=== PATIENT | female | born 1935 | race Caucasian/White ===

== ENCOUNTER 2019-07-21 04:45 | Outpatient (RCR) | payer MEDICARE, MEDICAID, SELFPAY | END 2019-08-04 00:01 | LOC: LAB 04:45 | PROVIDERS: Family Provider Family Medicine; Visit Provider Nurse Practitioner Family | DX: I10 Essential (primary) hypertension (principal); E11.9 Type 2 diabetes mellitus without complications | CPT/HCPCS: 36415; 80053; 80061; 83036; 84443; 85025 ==

== ENCOUNTER 2022-05-09 17:52 | Emergency (ER) | payer MEDICARE, MEDICAID, SELFPAY ==
[2022-05-09 17:54] VITALS: BP 148/78; PULSE 78; RESP 18; TEMP 36.6; O2SAT 93; BMI 26.4
[2022-05-09 18:01] VITALS: BP 181/55; PULSE 62; O2SAT 95
--- NOTE | 2022-05-09 18:29 | ED_ITS ---
HPI - General Adult General: Chief complaint: Fall Stated complaint: fall L. arm pain Time Seen by Provider: 05/09/22 18:06 History of Present Illness: Patient is a 86-year-old female with a history of baseline dementia who presents to the emergency room with concerns of left upper extremity pain versus paralysis. Patient was last seen normal yesterday. However this morning, patient was noted by the staff to not be able to grasp with the left hand. Patient reported initially that she was in pain. However there was concern that may be this was possibly a stroke. EMS was called patient was brought to the emergency room. On arrival, patient is AAO x1 confused but occasionally following commands. Patient is moving all extremities at this time. History is limited. On arrival, in triage, patient told triage nurse that her left knee was hurting. Onset:earlier today (unknown) Duration:unknown Location:home Severity:moderate Associated symptoms: Deny chest pain, dyspnea, nausea, rash, palpitations or vomiting Review of Systems Const: Denies: fever(s) or chills Eyes: Denies: change in vision ENMT: Denies: mouth pain Card: Denies: chest pain or palpitations Resp: Denies: dyspnea or non-productive cough GI: Denies: abdominal pain, nausea, vomiting or diarrhea : Denies: dysuria Musc: Reports: extremity pain (+L knee pain) and other (+possible L arm pain vs transient weakness) Skin/Breast: Denies: rash or new lesions Neuro: Denies: weakness in extremities Psych: Reports: other (Normal mood) Thiago/Lymph: Denies: easy bruising [facility] ED PFSH: Medical History Dementia Social History Smoking and tobacco status: never smoked Alcohol intake: never Substance/Drug Use: never Physical Exam Const: COMMON NORMALS: alert HENMT: COMMON NORMALS: atraumatic HEAD & SCALP: atraumatic MOUTH: moist mucous membranes not abnormal Eye: COMMON NORMALS: EOMs intact bilaterally and conjunctivae normal CONJUNCTIVA: Yes conjunctivae normal Neck/C-Spine: COMMON NORMALS: full ROM and supple Resp: COMMON NORMALS: normal respiratory effort and clear to auscultation bilaterally AUSCULTATION: clear to auscultation bilaterally Cardio: COMMON NORMALS: regular rate RATE: regular rate GI: COMMON NORMALS: Soft to palpation and non-tender PALPATION: Yes Soft to palpation Extremity: COMMON NORMALS: full ROM Neuro: SENSORIUM/ORIENTATION: Yes alert MOTOR EXAM: No Abnormal motor stre ngth present and Other motor observations present (no focal motor deficits) OTHER: Mental status? AAOx1, following commands occasionally Cranial nerves? 2,3,4,6: PERRL, EOMI with no nystagmus. 5: Intact sensation to light touch, symmetric? 7: Smile symmetrical, no facial droop.? 8: Hearing grossly intact.? 9,10: Normal palate movement.? 11: Normal strength in trapezius bilaterally 12: Tongue protrudes midline.? ? Motor examination? Normal bulk & tone. Strength as follows (R/L): Delts (5/5), Biceps (5/5), Triceps (5/5), Wrist ext (5/5), hip flexors (5/5), plantarflexors (5/5), dorsiflexors (5/5). Sensation? Light Touch: Grossly intact and equal in upper and lower extremities bilaterally? Romberg: Negative.? Distal joint position sense intact Unable to assess cerebellar and gait given baseline mental status Psych: COMMON NORMALS: speech normal SPEECH: Yes normal speech MOOD & AFFECT: Yes euthymic mood Course Vital Signs: Vital signs: Vital Signs Temperature 98 F 05/09/22 17:54 Pulse Rate 62 05/09/22 18:01 Respiratory Rate 18 05/09/22 17:54 Blood Pressure 181/55 05/09/22 18:01 Pulse Oximetry 95 05/09/22 18:01 Oxygen Delivery Me thod 05/09/22 18:01 [facility] - General Adult Medical Decision Making Patient is a 86-year-old female with a history of baseline dementia who presents to the emergency room with concerns of left upper extremity pain versus paralysis. Patient was last seen normal yesterday. On physical exam, patient is equal strength on both sides. Cranial nerves II through XII grossly intact. Patient does not demonstrate any focal neurological pathologies at this time. X-rays today are negative. CT is negative for any acute stroke. I discussed case with Dr. Puentes who agrees that this is unlikely to be a stroke today as patient has intact neuro exam. Disposition: Discharge. retirement counseled regarding diagnostic impression, treatment plan. retirement given ED strict return precautions to return for continuation, worsening, or development of new symptoms. Instructed to f/u w/ PCP regarding symptoms today. retirement verbalized understanding. Lab Data Radiology Impressions Head CT 05/09/22 18:57 IMPRESSION: Negative for intracranial hemorrhage or mass effect. Humerus X-Ray 05/09/22 18:57 IMPRESSION: No acute fracture. Knee X-Ray 05/09/22 18:57 IMPRESSION: No acute fracture. Shoulder X-Ray 05/09/22 18:57 IMPRESSION: No acute findings. Imaging Data Other Imaging: Radiologist's impression: [facility] [address] [place] [address] XRay Report Signed Patient: Lissa Pete Unit #: [id number] : 1935 Age/Sex: 86 / F ADM Date: 05/09/22 Loc: ER Room/Bed: Attending Dr: Ordering Provider/Ordering MD: Froylan Baker MD Date of Service: 05/09/22 Procedure(s): XR shoulder LT min 2V* [id number] Accession Number(s): [id number] Report Number: [id number] PROCEDURE INFORMATION: Exam: XR Left Shoulder Exam date and time: 05/09/2022 7:06 PM Age: 86 years old Clinical indication: Pain; Shoulder; Left; Additional info: L shoulder pain TECHNIQUE: Imaging protocol: Radiologic exam of the Left shoulder. Views: 2 or more views. COMPARISON: CR XR chest 1V [id number] 07/05/2017 12:06 AM FINDINGS: Bones/joints: Glenohumeral and acromioclavicular alignment are normal. No acute fracture. Soft tissues: Visible soft tissues are unremarkable. XR/XR shoulder LT min 2V* [id number] IMPRESSION: No acute findings. ? Dictated By: Donald Alvarez MD Signed By: Donald Alvarez MD Signed Date/Time: 05/09/221937 DD/ [address] [address] XRay Report Signed Patient: Lissa Pete Unit #: [id number] : 1935 Age/Sex: 86 / F ADM Date: 05/09/22 Loc: ER Room/Bed: Attending Dr: Ordering Provider/Ordering MD: Froylan Baker MD Date of Service: 05/09/22 Procedure(s): XR knee LT 1-2V 64422 Accession Number(s): [id number] Report Number: [id number] PROCEDURE INFORMATION: Exam: XR Left Knee Exam date and time: 05/09/2022 7:03 PM Age: 86 years old Clinical indication: Pain; Knee; Left; Additional info: L knee pain TECHNIQUE: Imaging protocol: Radiologic exam of the Left knee. Views: 1 or 2 views. COMPARISON: No relevant prior studies available. FINDINGS: Bones/joints: Bones are diffusely osteopenic. Alignment is normal. There is chondrocalcinosis of the menisci. No acute fracture. No joint effusion. Soft tissues: Lateral prepatellar edema. XR/XR knee LT 1-2V 31532 IMPRESSION: No acute fracture. ? Dictated By: Donald Alvarez MD Signed By: Donald Alvarez MD Signed Date/Time: 05/09/221935 DD/ [address] [address] XRay Report Signed Patient: Lissa Pete Unit #: [id number] : 1935 Age/Sex: 86 / F ADM Date: 05/09/22 Loc: ER Room/Bed: Attending Dr: Ordering Provider/Ordering MD: Froylan Baker MD Date of Service: 05/09/22 Procedure(s): [place] [address] Accession Number(s): [id number] Report Number: [id number] PROCEDURE INFORMATION: Exam: XR Left Humerus Exam date and time: 05/09/2022 7:08 PM Age: 86 years old Clinical indication: Pain; Upper arm; Left; Additional info: L humerus pain TECHNIQUE: Imaging protocol: Radiologic exam of the Left humerus. Views: 2 or more views. COMPARISON: CR (CHEST, ) 05/09/2022 7:06 PM FINDINGS: Bones/joints: Alignment is normal. No acute fracture. Soft tissues: Visible soft tissues are unremarkable. XR/[place] [id number] IMPRESSION: No acute fracture. ? Dictated By: Donald Alvarez MD Signed By: Donald Alvarez MD Signed Date/Time: 05/09/221936 DD/ [address] [address] [address] Scan Report Signed Patient: Lissa Pete Unit #: [id number] : 1935 Age/Sex: 86 / F ADM Date: 05/09/22 Loc: ER Room/Bed: Attending Dr: Ordering Provider/Ordering MD: Froylan Baker MD Date of Service: 05/09/22 Procedure(s): CT head wo con* 10592 Accession Number(s): [id number] Report Number: [id number] PROCEDURE INFORMATION: Exam: CT Head Without Contrast Exam date and time: 05/09/2022 7:29 PM Age: 86 years old Clinical indication: Pain; Altered mental status/memory loss; Headache; Prior surgery; Additional info: Head pain TECHNIQUE: Imaging protocol: Computed tomography of the head without contrast. Radiation optimization: All CT scans at this facility use at least one of these dose optimization techniques: automated exposure control; mA and/or kV adjustment per patient size (includes targeted exams where dose is matched to clinical indication); or iterative reconstruction. COMPARISON: No relevant prior studies available. RADIATION DOSE METRICS: Total DLP (mGy-cm): 1033.58 FINDINGS: Brain: Mild diffuse white matter disease likely reflecting chronic microvascular ischemic changes. Cerebral ventricles: No ventriculomegaly. Paranasal sinuses: Visualized sinuses are unremarkable. No fluid levels. Mastoid air cells: Visualized mastoid air cells are well aerated. Bones/joints: Unremarkable. No acute fracture. Soft tissues: Unremarkable. CT/CT head wo con* [id number] IMPRESSION: Negative for intracranial hemorrhage or mass effect. ? Dictated By: Juwan Cota MD Signed By: Juwan Cota MD Signed Date/Time: 05/09/222009 DD/ 1929 Discharge Plan Discharge Patient Disposition: Home Clinical Impression: Adult general medical exam Condition: Stable Discharge Orders: Discharge ED (Routine); Ordered 05/09/22 Ordered By: Froylan Baker Referrals: Tony Leonardo Jr, MD [Primary Care Provider] - Discharge Diet: Advance as tolerated Discharge Activity: Increase activity as tolerated Activity Restrictions/Additional Instructions: Come back to the emergency room if any weakness in your arms or legs, if you have any facial droop, double vision, visual blindness, visual field deficits, balance problem, inability to walk, language difficulties or any new or concerning complaints. Coding Level of Care Code ED Him Manager for Chg Fwd Exam Comprehensive
--- NOTE | 2022-05-09 18:57 | XRR_ITS ---
PROCEDURE INFORMATION: Exam: XR Left Knee Exam date and time: 05/09/2022 7:03 PM Age: 86 years old Clinical indication: Pain; Knee; Left; Additional info: L knee pain TECHNIQUE: Imaging protocol: Radiologic exam of the Left knee. Views: 1 or 2 views. COMPARISON: No relevant prior studies available. FINDINGS: Bones/joints: Bones are diffusely osteopenic. Alignment is normal. There is chondrocalcinosis of the menisci. No acute fracture. No joint effusion. Soft tissues: Lateral prepatellar edema. XR/XR knee LT 1-2V 95827 IMPRESSION: No acute fracture.
--- NOTE | 2022-05-09 18:57 | XRR_ITS ---
PROCEDURE INFORMATION: Exam: XR Left Humerus Exam date and time: 05/09/2022 7:08 PM Age: 86 years old Clinical indication: Pain; Upper arm; Left; Additional info: L humerus pain TECHNIQUE: Imaging protocol: Radiologic exam of the Left humerus. Views: 2 or more views. COMPARISON: CR (CHEST, ) 05/09/2022 7:06 PM FINDINGS: Bones/joints: Alignment is normal. No acute fracture. Soft tissues: Visible soft tissues are unremarkable. XR/[place] [address] IMPRESSION: No acute fracture.
--- NOTE | 2022-05-09 18:57 | XRR_ITS ---
PROCEDURE INFORMATION: Exam: XR Left Shoulder Exam date and time: 05/09/2022 7:06 PM Age: 86 years old Clinical indication: Pain; Shoulder; Left; Additional info: L shoulder pain TECHNIQUE: Imaging protocol: Radiologic exam of the Left shoulder. Views: 2 or more views. COMPARISON: CR XR chest 1V [id number] 07/05/2017 12:06 AM FINDINGS: Bones/joints: Glenohumeral and acromioclavicular alignment are normal. No acute fracture. Soft tissues: Visible soft tissues are unremarkable. XR/XR shoulder LT min 2V* [id number] IMPRESSION: No acute findings.
--- NOTE | 2022-05-09 18:57 | CTR_ITS ---
PROCEDURE INFORMATION: Exam: CT Head Without Contrast Exam date and time: 05/09/2022 7:29 PM Age: 86 years old Clinical indication: Pain; Altered mental status/memory loss; Headache; Prior surgery; Additional info: Head pain TECHNIQUE: Imaging protocol: Computed tomography of the head without contrast. Radiation optimization: All CT scans at this facility use at least one of these dose optimization techniques: automated exposure control; mA and/or kV adjustment per patient size (includes targeted exams where dose is matched to clinical indication); or iterative reconstruction. COMPARISON: No relevant prior studies available. RADIATION DOSE METRICS: Total DLP (mGy-cm): 1033.58 FINDINGS: Brain: Mild diffuse white matter disease likely reflecting chronic microvascular ischemic changes. Cerebral ventricles: No ventriculomegaly. Paranasal sinuses: Visualized sinuses are unremarkable. No fluid levels. Mastoid air cells: Visualized mastoid air cells are well aerated. Bones/joints: Unremarkable. No acute fracture. Soft tissues: Unremarkable. CT/CT head wo con* [id number] IMPRESSION: Negative for intracranial hemorrhage or mass effect.
--- NOTE | 2022-05-09 21:13 | PC.NURSE ---
arranging [employer] transportation back to [facility]
[2022-05-09 23:40] VITALS: BP 181/55; PULSE 62; O2SAT 95
== END 2022-05-09 23:42 | disposition home or self-care (01) ==
PROVIDERS: Emergency Provider Emergency Medicine; PCP Family Medicine
DX: Z00.00 Encounter for general adult medical examination without abnormal findings (principal); F03.90 Unspecified dementia, unspecified severity, without behavioral disturbance, psychotic disturbance, mood disturbance, and anxiety
CPT/HCPCS: 70450; 73030; 73060; 73560; 99284

== ENCOUNTER 2022-08-10 13:25 | Outpatient (CLI) | payer MEDICARE, MEDICAID, SELFPAY ==
--- NOTE | 2022-08-10 13:36 | US_ITS ---
WS: [id number] ULTRASOUND THYROID TECHNIQUE: Ultrasound of the thyroid. CLINICAL INFORMATION: BLOOD VALUES ABNORMAL COMPARISON: None. FINDINGS: Thyroid: Heterogeneous enlarged thyroid gland extending below the clavicles bilaterally compatible wi th multinodular goiter. Right thyroid lobe: 6.7 cm x 2.4 cm x 2.2 cm Complex cystic nodule RIGHT mid thyroid measuring 1.4 x 1.2 x 1.2 cm Left thyroid lobe: 7.9 cm x 3.2 cm x 3.0 cm. Isthmus: 0.5 mm. Cervical lymphadenopathy: Prominent LEFT cervical lymph node measuring 1.2 x 0.9 cm with normal prese rved fatty hilum. US/US thyroid 58750 IMPRESSION: 1. Diffuse heterogeneous thyroid enlargement extending below the clavicle most compatible with goiter. Recommend correlation with thyroid function studies. 2. Complex cystic RIGHT mid thyroid nodule measuring 1.4 x 1.2 x 1.2 CM. Recom mend 12 month follow-up 3. Prominent LEFT cervical lymph node measuring 1.2 x 0.9 cm with normal prese rved fatty hilum.
== END 2022-08-10 13:26 | disposition home or self-care (01) ==
LOC: RAD 13:25
PROVIDERS: PCP Family Medicine; Visit Provider Family Medicine
DX: R79.89 Other specified abnormal findings of blood chemistry (principal); E04.1 Nontoxic single thyroid nodule; R59.0 Localized enlarged lymph nodes
CPT/HCPCS: 76536

== ENCOUNTER 2023-02-05 17:37 | Emergency (ER) | payer MEDICARE, MEDICAID, SELFPAY ==
[2023-02-05 17:40] VITALS: BP 167/79; PULSE 93; RESP 16; TEMP 37.1; O2SAT 91; BMI 24.5
--- NOTE | 2023-02-05 17:41 | XRR_ITS ---
PROCEDURE INFORMATION: Exam: XR Left Wrist Exam date and time: 02/05/2023 5:57 PM Age: 87 years old Clinical indication: Injury or trauma; Fall; Additional info: Trauma/fall TECHNIQUE: Imaging protocol: Radiologic exam of the left wrist. Views: 3 or more views. COMPARISON: No relevant prior studies available. FINDINGS: Bones/joints: No fracture or dislocation is seen about the left wrist. Mild degenerative change or osteoarthritis. No acute osseous abnormality. Soft tissues: No abnormal soft tissue calcification is seen. XR/XR wrist LT min 3V* [id number] IMPRESSION: No fracture identified.
--- NOTE | 2023-02-05 17:41 | XRR_ITS ---
PROCEDURE INFORMATION: Exam: XR Nasal Bones Exam date and time: 02/05/2023 5:50 PM Age: 87 years old Clinical indication: Nose pain; Additional info: Fall TECHNIQUE: Imaging protocol: XR of the nasal bones. Views: Minimum of 3 views COMPARISON: CT head wo con* [id number] 05/09/2022 7:29 PM FINDINGS: Sinuses: Well aerated. No opacification. Bones/joints: No fracture. Soft tissues: Unremarkable. XR/XR nasal bones min 3V 14948 IMPRESSION: No fracture identified.
--- NOTE | 2023-02-05 17:56 | ED_ITS ---
Documented by User: Darrel Medley DO 02/06/23 08:44 HPI - Fall General: Chief Complaint: Fall Stated Complaint: Fall Time Seen by Provider: 02/05/23 17:40 Source: patient Mode of arrival: EMS History of Present Illness: 87-year-old female presents to the emergency room via EMS after a fall. She had an assisted living. She has intellectual disability she had a ground-level mechanical fall she complaining of some left wrist pain although she is moving around quite well. She also complaining of nose pain. Staff reported she basically fell on her nose there is no loss consciousness no vomiting. MD complaint: fall Onset (ago): minute(s) Fall from: standing Fall witnessed: yes, by living facility staff Place [facility]: [facility] Loss of consciousness: None Prolonged down time: no Symptoms prior to fall: none Context: tripped/slipped Location of injury: face Review of Systems General: Reports: ROS unobtainable due to mental status PFS ED PFSH: Medical History Dementia Social History Smoking and tobacco status: never smoked Alcohol intake: never Substance/Drug Use: never Physical Exam Const: GENERAL APPEARANCE: cooperative and comfortable HENMT: COMMON NORMALS: normocephalic and hearing grossly normal bilaterally HEAD & SCALP: normocephalic OTHER: Mild swelling and abrasion across the bridge of the nose no significant deformity Resp: COMMON NORMALS: normal respiratory effort, No retractions, No use of accessory muscles and clear to auscultation bilaterally AUSCULTATION: clear to auscultation bilaterally Cardio: COMMON NORMALS: regular rate, regular rhythm and No murmurs present (Cardio) RATE: regular rate RHYTHM: regular rhythm GI: COMMON NORMALS: Soft to palpation and No hepatosplenomegaly present AUSCULTATION: Yes normoactive bowel sounds PALPATION: Yes Soft to palpation, No Tenderness to palpation present (GI), No Guarding due to palpation present (GI) and Yes No hepatosplenomegaly present Extremity: COMMON NORMALS: capillary refill normal, no clubbing, cyanosis or edema, no calf tenderness and no pedal edema OTHER: Expresses discomfort with manipulation of the hand and the wrist but there is no obvious deformity or swelling Skin: COMMON NORMALS: no rashes or lesions noted GENERAL SKIN EXAM: no rashes or lesions noted Course Vital Signs: Vital signs: Vital Signs Temperature 98.8 F 02/05/23 17:40 Pulse Rate 92 02/05/23 18:50 Respiratory Rate 16 02/05/23 18:50 Blood Pressure 126/82 02/05/23 18:50 Pulse Oximetry 96 02/05/23 18:50 Oxygen Delivery Me thod Room Air 02/05/23 18:50 MDM - Fall Medical Decision Making Care signed out to Dr. Gonsales at change of shift. See final notes for diagnosis and disposition. Patient care handoff received from Dr. Medley pending completion of ED evaluation. X-rays obtained and are negative for acute fracture. Patient is satisfactory for outpatient management with symptomatic care. The results of ED evaluation were discussed with the patient including prescriptions and/or symptomatic cares (if applicable) including appropriate and responsible use, followup plan, and return precautions. The patient verbalized understanding and felt safe for discharge. Jayesh Gonsales MD Emergency Medicine Lab Data Radiology Impressions Nasal Bones X-Ray 02/05/23 17:41 IMPRESSION: No fracture identified. Wrist X-Ray 02/05/23 17:41 IMPRESSION: No fracture identified. Hand X-Ray 02/05/23 17:58 IMPRESSION: No fracture identified. Discharge Plan Discharge Patient Disposition: Home Clinical Impression: Fall, Multiple contusions Condition: Stable Prescriptions: No Action albuterol sulfate 0.63 mg/3 mL Solution For Nebulization 0.63 mg INHALATION Q4H PRN (Reason: Shortness Of Breath Or Wheezing) acetaminophen 325 mg Tablet 650 mg PO Q4H PRN (Reason: Pain) atorvastatin 10 mg tablet 10 mg PO QPM amlodipine 5 mg tablet 5 mg PO DAILY Aspir-81 81 mg Tablet,Delayed Release (Dr/Ec) 81 mg PO DAILY Milk of Magnesia 400 mg/5 mL Suspension 30 ml PO DAILY PRN (Reason: Constipation) losartan 25 mg tablet 25 mg PO DAILY docusate sodium 100 mg Capsule 100 mg PO BID Virtussin AC 10-100 mg/5 mL Liquid 5 ml PO Q6H PRN (Reason: Cough) furosemide 20 mg tablet 20 mg PO DAILY oxybutynin chloride 5 mg tablet 2.5 mg PO DAILY potassium chloride 10 mEq tablet,ER particles/crystals 10 meq PO DAILY lactulose 10 gram/15 mL solution 15 ml PO QPM Discharge Orders: Discharge ED (Routine); Ordered 02/05/23 Ordered By: Jayesh Gonsales Referrals: Tony Leonardo Jr, MD [Staff Physician] - Discharge Diet: Usual diet Discharge Activity: Increase activity as tolerated Patient Instructions: Fall Prevention for Older Adults (ED), P.R.I.C.E. Treatment (ED) Activity Restrictions/Additional Instructions: Thank you for visiting the emergency department. You were seen and evaluated for fall with concern of wrist injury and face injury. No broken bones were identified on x-ray. The most likely cause of your pain is related to soft tissue injury/contusions. You may use [id number] medications such as acetaminophen and ibuprofen for pain however please do not exceed the daily recommended dosage as listed on the packaging and please keep in mind that many namebrand medications contain the same active ingredients. Please avoid these medications if previously instructed to do so by another physician due to other underlying medical condition. If using NSAIDs such as ibuprofen, Aleve, aspirin type medications please ensure that you are taking a daily proton pump inhibitor which can be purchased [id number] if not currently on one. If applying ice do not apply directly to the skin. Use a 1:2 ratio for on time to off time. For example if placing ice on for 15 minutes remove for at least 30 minutes prior to reapplying. Please follow-up with your primary care provider. Return for anything that you are concerned about and feel needs emergency department evaluation. Sign Out Sign Out Data: Patient Sign Out occurred on 02/05/23 at 18:11. Patient's care was discussed, and care was transferred from to Jayesh Gonsales MD. Coding Level of Care Code ED Mobile Patrol Officer for Chg Fwd Documented by User: Jayesh Gonsales MD 02/18/23 19:09 HPI - Fall General: Chief Complaint: Fall Stated Complaint: Fall Time Seen by Provider: 02/05/23 17:40 PFSH ED PFSH: Medical History Dementia Social History Smoking and tobacco status: never smoked Alcohol intake: never Substance/Drug Use: never Course Vital Signs: Vital signs: Vital Signs Temperature 98.8 F 02/05/23 17:40 Pulse Rate 92 02/05/23 18:50 Respiratory Rate 16 02/05/23 18:50 Blood Pressure 126/82 02/05/23 18:50 Pulse Oximetry 96 02/05/23 18:50 Oxygen Delivery Me thod Room Air 02/05/23 18:50 MDM - Fall Medical Decision Making Patient care handoff received from Dr. Medley pending completion of ED evaluation. X-rays obtained and are negative for acute fracture. Patient is satisfactory for outpatient management with symptomatic care. The results of ED evaluation were discussed with the patient including prescriptions and/or symptomatic cares (if applicable) including appropriate and responsible use, followup plan, and return precautions. The patient verbalized understanding and felt safe for discharge. Jayesh Gonsales MD Emergency Medicine Lab Data Radiology Impressions Nasal Bones X-Ray 02/05/23 17:41 IMPRESSION: No fracture identified. Wrist X-Ray 02/05/23 17:41 IMPRESSION: No fracture identified. Hand X-Ray 02/05/23 17:58 IMPRESSION: No fracture identified. Discharge Plan Discharge Patient Disposition: Home Clinical Impression: Fall, Multiple contusions Condition: Stable Prescriptions: No Action albuterol sulfate 0.63 mg/3 mL Solution For Nebulization 0.63 mg INHALATION Q4H PRN (Reason: Shortness Of Breath Or Wheezing) acetaminophen 325 mg Tablet 650 mg PO Q4H PRN (Reason: Pain) atorvastatin 10 mg tablet 10 mg PO QPM amlodipine 5 mg tablet 5 mg PO DAILY Aspir-81 81 mg Tablet,Delayed Release (Dr/Ec) 81 mg PO DAILY Milk of Magnesia 400 mg/5 mL Suspension 30 ml PO DAILY PRN (Reason: Constipation) losartan 25 mg tablet 25 mg PO DAILY docusate sodium 100 mg Capsule 100 mg PO BID Virtussin AC 10-100 mg/5 mL Liquid 5 ml PO Q6H PRN (Reason: Cough) furosemide 20 mg tablet 20 mg PO DAILY oxybutynin chloride 5 mg tablet 2.5 mg PO DAILY potassium chloride 10 mEq tablet,ER particles/crystals 10 meq PO DAILY lactulose 10 gram/15 mL solution 15 ml PO QPM Discharge Orders: Discharge ED (Routine); Ordered 02/05/23 Ordered By: Jayesh Gonsales Referrals: Tony Leonardo Jr, MD [Staff Physician] - Discharge Diet: Usual diet Discharge Activity: Increase activity as tolerated Patient Instructions: Fall Prevention for Older Adults (ED), P.R.I.C.E. Treatment (ED) Activity Restrictions/Additional Instructions: Thank you for visiting the emergency department. You were seen and evaluated for fall with concern of wrist injury and face injury. No broken bones were identified on x-ray. The most likely cause of your pain is related to soft tissue injury/contusions. You may use [id number] medications such as acetaminophen and ibuprofen for pain however please do not exceed the daily recommended dosage as listed on the packaging and please keep in mind that many namebrand medications contain the same active ingredients. Please avoid these medications if previously instructed to do so by another physician due to other underlying medical condition. If using NSAIDs such as ibuprofen, Aleve, aspirin type medications please ensure that you are taking a daily proton pump inhibitor which can be purchased [id number] if not currently on one. If applying ice do not apply directly to the skin. Use a 1:2 ratio for on time to off time. For example if placing ice on for 15 minutes remove for at least 30 minutes prior to reapplying. Please follow-up with your primary care provider. Return for anything that you are concerned about and feel needs emergency department evaluation. Sign Out Sign Out Data: Patient Sign Out occurred on 02/05/23 at 18:11. Patient's care was discussed, and care was transferred from to Jayesh Gonsales MD. Coding Level of Care Code ED Mobile Patrol Officer for Lorelei Rodney
--- NOTE | 2023-02-05 17:58 | XRR_ITS ---
PROCEDURE INFORMATION: Exam: XR Left Hand Exam date and time: 02/05/2023 6:02 PM Age: 87 years old Clinical indication: Injury or trauma; Fall TECHNIQUE: Imaging protocol: Radiologic exam of the left hand. Views: 3 or more views. COMPARISON: CR (UP EXM, ) 02/05/2023 5:57 PM FINDINGS: Bones/joints: No fracture or dislocation is seen about the left hand. Mild degenerative change or osteoarthritis. No acute osseous abnormality. Soft tissues: No significant focal soft tissue abnormality. XR/XR hand LT min 3V* [id number] IMPRESSION: No fracture identified.
[2023-02-05] MEDS: ketorolac 30 mg/mL INJ 15 MG IM (18:43)
[2023-02-05] MEDS: acetaminophen 325 mg Tablet 650 MG PO (18:44)
[2023-02-05 18:50] VITALS: BP 126/82; PULSE 92; RESP 16; O2SAT 96
--- NOTE | 2023-02-05 19:03 | PC.NURSE ---
Report from CAMACHO Pacheco. Pt resting quietly. Is awake, alert to person only. Reported that this is her baseline. Pt is up for discharge and this RN will set up ride back to [place].
--- NOTE | 2023-02-07 08:30 | DCPLANNER ---
Addendum entered by Amanda Ray 02/20/23 12:43: manager title received the following message from the ortho clinic regarding follow up appointment: Attempted to contact patient - I was unable to get ahold of the number in her chart and I was not able to leave a v/m, but I will be mailing a letter. We will not want to see the patient until after she is discharged from the ICU, if she does don't want to wait, a consult will need to be made (speak with one our nurses). Original Note: manager title had message to schedule a follow up appointment for patient with ortho. manager title sent patients information to the front office staff at ortho. Patients information will be printed and reviewed. Clinic will call patient with appointment information.
== END 2023-02-05 21:13 | disposition home or self-care (01) ==
PROVIDERS: Emergency Provider Emergency Medicine
DX: S00.31XA Abrasion of nose, initial encounter (principal); F03.90 Unspecified dementia, unspecified severity, without behavioral disturbance, psychotic disturbance, mood disturbance, and anxiety; W18.30XA Fall on same level, unspecified, initial encounter; Y92.099 Unspecified place in other non-institutional residence as the place of occurrence of the external cause
CPT/HCPCS: 70160; 73110; 73130; 96372; 99284; J1885

== ENCOUNTER 2023-02-06 15:20 | Inpatient (IN) | payer MEDICARE, MEDICAID, SELFPAY ==
[2023-02-06] VITALS (30 sets, daily range): BP systolic 95–159; BP diastolic 63–90; PULSE 73–155; RESP 16–36; TEMP 36.5; O2SAT 89–99; BMI 20.7
--- NOTE | 2023-02-06 15:31 | W.ED.FALL ---
Documented by User: ASIF Currie 02/11/23 07:24 HPI - Fall General: Chief Complaint: Fall Stated Complaint: Fall Time Seen by Provider: 02/06/23 15:23 Source: patient and EMS Mode of arrival: EMS Limitations: altered mental status (chronic dementia) History of Present Illness: Patient is an 87-year-old female who presents to ED today from her retirement for evaluation following a fall. Patient was seen here yesterday following a fall as well. According to retirement staff she had a witnessed trip and fall. They states she struck her head. No LOC. State mental status has been normal since the fall. Upon my examination patient is complaining of left hand and wrist pain. She overall is a fairly poor historian given her dementia but can answer some of my questioning and is able to vocalize pain to her left wrist and hand. She is able to tell me she has bruising and swelling to the left elbow. She tells me she is not having any discomfort to her legs and is able to move them passively without much discomfort. I do not visualize any signs of trauma/injury to her head. MD complaint: fall Onset (ago): hour(s) Fall from: standing Fall witnessed: yes, by living facility staff Place fall occurred: retirement/SNF Loss of consciousness: None Prolonged down time: no Symptoms prior to fall: none Context: tripped/slipped Location of injury: head Associated symptoms-after fall: Denies abdominal pain, chest pain, headache(s), hematuria, lightheadedness or neck pain Review of Systems Eyes: Denies: change in vision, blurry vision, photophobia, eye discharge, floaters or seeing flashes ENMT: Denies: throat pain, odynophagia, ear or mastoid pain, ear discharge, nasal discharge, epistaxis or sinus pain Card: Denies: chest pain, palpitations, lightheadedness, syncope or pre-syncope Resp: Denies: dyspnea or pain on inspiration GI: Denies: abdominal pain : Denies: flank pain or hematuria Musc: Reports: extremity pain and joint swelling (L elbow); Denies: neck pain, back pain, extremity swelling, joint pain, joint redness or joint warmth Skin/Breast: Reports: other (ecchymosis to L elbow, upper arm) Neuro: Denies: headache(s), numbness in extremities, weakness in extremities, sensory changes or dizziness PFS ED PFSH: Medical History Dementia Social History Smoking and tobacco status: never smoked Alcohol intake: never Substance/Drug Use: never Physical Exam Const: COMMON NORMALS: no acute distress, average body habitus, patient oriented x3, no limitations, healthy appearing, alert and well nourished GENERAL APPEARANCE: cooperative ORIENTATION/CONSCIOUSNESS: Yes awake, Yes oriented to person and Yes oriented to place HENMT: COMMON NORMALS: normocephalic, atraumatic and TM's normal bilaterally HEAD & SCALP: normal to inspection, normocephalic and atraumatic; no Connelly's sign, no hematoma and no raccoon eyes FACE & SINUS: normal facial exam TYMPANIC MEMBRANE: TM's normal bilaterally MOUTH: other (no intraoral injuries noted) Eye: COMMON NORMALS: Equal, round and reactive pupils present and EOMs intact bilaterally GENERAL EYE: appearance normal, both eyes and all related structures and normal light reflex PUPIL: Yes Equal, round and reactive pupils present DIRECT OPHTHALMOSCOPY: Yes normal light reflex Neck/C-Spine: COMMON NORMALS: full ROM GENERAL: Yes normal visual inspection CERVICAL SPINE: Yes cervical ROM normal, No pain with cervical ROM, No Cervical spine tenderness, No step off deformity and No Paracervical muscle tenderness Chest: COMMONS NORMALS: normal inspection of the chest and normal palpation of entire chest wall Resp: COMMON NORMALS: normal respiratory effort and clear to auscultation bilaterally AUSCULTATION: clear to auscultation bilaterally Cardio: COMMON NORMALS: regular rate and regular rhythm RATE: regular rate RHYTHM: regular rhythm GI: COMMON NORMALS: Normal to inspection, nondistended, normoactive bowel sounds present, Soft to palpation, non-tender, No hepatosplenomegaly present and no masses INSPECTION: Yes normal to inspection and No abdominal wall ecchymosis AUSCULTATION: Yes normoactive bowel sounds PALPATION: Yes Soft to palpation and Yes No hepatosplenomegaly present Back/Pelvis: COMMON NORMALS: thoracic and lumbar spine normal to inspection, no thoracic nor lumbar tenderness and thoraco-lumbar ROM normal Extremity: COMMON NORMALS: capillary refill normal GENERAL: Yes normal exam except as noted LEFT UPPER EXTREMITY: Yes upper arm, Yes elbow joint, Yes wrist and Yes hand & digits OTHER: Patient complains of pain to her volar hand and wrist although she moves all of her digits and wrist joint fairly easily without any discernible discomfort. I am able to palpate her hand and wrist and do not feel any bony abnormalities and again able to passively perform range of motion without much discomfort. Looking at previous documentation she did have XRs of the hand and wrist performed yesterday which were negative. Patient does have ecchymosis and swelling surrounding the left elbow and she does appear tender with range of motion of this joint. She has some ecchymosis to the outer aspect of her left upper arm with an overlying Band-Aid from a recent IM injection. Extremity appears NV intact. Neuro: PANFILO COMA SCALE: document GCS findings Panfil[place] coma scale eye opening: Spontaneous Panfilo coma scale verbal response: Orientated Panfilo coma scale motor response: Obey commands Panfilo coma scale total score: 15 COMMON NORMALS: patient oriented x3, CN's II-XII intact bilaterally, moves all extremities, no focal motor deficits, no sensory deficits noted and gait normal SENSORIUM/ORIENTATION: Yes alert, Yes oriented to person and Yes oriented to place SPEECH: speech normal GAIT: Yes Normal gait present Skin: COMMON NORMALS: no rashes or lesions noted NARRATIVE SKIN EXAM: ecchymosis L elbow and L upper arm GENERAL SKIN EXAM: no rashes or lesions noted TRAUMA: no lacerations or abrasions Course Consultations: Consultation #1: Dr. Lugo-[place] and will follow up in office Vital Signs: Vital signs: Vital Signs Temperature 98.5 F 02/11/23 03:57 Pulse Rate 76 02/11/23 06:05 Respiratory Rate 19 H 02/11/23 03:57 Blood Pressure 128/65 02/11/23 03:57 Pulse Oximetry 81 L 02/11/23 03:57 Oxygen Delivery Me thod Nasal Cannula 02/11/23 03:57 Oxygen Flow Rate 2 02/10/23 20:10 MDM - Fall Medical Decision Making Patient is a witnessed trip and fall at her retirement prior to arrival. prison staff states she struck her head. Did not indicate any injury to left extremity on today's fall. She complains of pain to the left hand and wrist. These were x-rayed yesterday and negative. She has bruising and swelling to elbow and upper arm. XRs of these showing a distal humeral fracture. I spoke to Dr. Lugo who recommends splinting and he will follow-up in office and try to treat this nonsurgically. She is neurovascularly intact. Plan was to transfer care transferred to [facility] pending CT scans of her head/cervical spine but right at shift change I was alerted by staffing specialist that patient had had a fairly abrupt change in her vitals and is now tachy in the 140s and tachypneic. I went to assess patient and heart rate/respiratory pattern is certainly different than her initial presentation. She appears to be in a-fib with RVR. Unknown whether she has a history of this as the retirement did not send any paperwork with patient. I immediately consulted with Dr. Young who also evaluated patient and she will assume care at this time MOISÉS Young MD - I assumed care of this patient from [facility] - the patient developed a fib with RVR and appeared dyspneic prior to completion of her treatment from her fall. We have no records from he IN and are assuming that this a fib is new. We are attempting to contact her IN to get her medication list and history without success at this time. She was started on cardizem and given IV fluid for BP in the 90's. She has a history of dementia apparently, and is agitated in the ED. She pulled her IV out multiple times in the ED and required constant redirection. She has a WBC of 33,000 but it is unclear why this is. She doesn't have evidence of infection on CXR, UA, physical exam. Potentially related to stress from the injury? Admitting to Dr. Harris for further management. Lab Data 02/11/23 01:57 02/11/23 01:57 Radiology Impressions Cervical Spine CT 02/06/23 15:57 IMPRESSION: No acute findings. Head CT 02/06/23 15:57 IMPRESSION: No acute intracranial abnormality. Elbow X-Ray 02/06/23 15:58 IMPRESSION: Distal left humeral fracture as above. Humerus X-Ray 02/06/23 15:58 IMPRESSION: Distal left humeral fracture. Chest/Abdomen/Pelvis CT 02/06/23 20:33 IMPRESSION: 1. No acute thoracic findings. Please see abdominopelvic CT exam report below. 2. Coronary calcification and minimal dilatation of main pulmonary artery. 3. Multinodular goiter. See comments below. IMPRESSION: 1. Somewhat limited exam due to artifacts and lack of contrast. Please see chest CT exam report above. 2. Cholelithiasis. 3. Long segment mild diffuse small bowel distension with no obvious abrupt transition or pneumatosis. Findings suggest distal small bowel obstruction and follow-up should be obtained. Surgical consultation should also be considered. Moderate fluid-filled gastric lumen. Prior CT exam June 2017 demonstrated small-bowel obstruction with higher grade than prior exam. Gastroenteritis/ileus should also be excluded clinically. No free air or obvious drainable abscess. Bowel wall assessment is limited due to lack of contrast. 4. Moderate proximal colonic liquid stool and moderate-large solid rectal/sigmoid colon stool which may represent early fecal impaction. There is also probable mild stercoral proctitis. Colonic diverticulosis without diverticulitis. 5. Incidental multiple renal lesions as described above. Nonemergent sonographic correlation of the heterogeneous left renal lesion may be helpful. 6. Multi fibroid uterus with calcifications as described. COMMENTS: Consistent with the [employer]'s Incidental Findings Committee white paper (J Am Albert Radiol 2018): Any incidental renal lesion less than 1 cm or classified as too small to characterize, or any incidental cystic renal lesion characterized as simple-appearing, is likely benign. No follow-up imaging is recommended for these lesions per consensus recommendations based on imaging criteria. Abdomen X-Ray 02/09/23 08:59 IMPRESSION: Similar degree of multiple dilated small bowel loops with interval placement of enteric tube terminating in the stomach. KUB X-Ray 02/09/23 17:56 IMPRESSION: 1. Multiple large calcified uterine fibroids. 2. Dilated loops of small bowel up to 4.9 cm in diameter consistent with obstruction versus ileus versus enteritis. Chest X-Ray 02/10/23 22:28 IMPRESSION: Interval retraction of the right PICC line noted terminating in the SVC. Laboratory Results WBC 33.0 10^3/uL (4.0-10.0) H* 02/06/23 17:20 RBC 4.96 10^6/uL (4.1-5.3) 02/06/23 17:20 Hgb 14.2 g/dL (11.5-15.3) 02/06/23 17:20 Hct 44.2 % (37.0-47.0) 02/06/23 17:20 MCV 89.1 fl (81-99) 02/06/23 17:20 MCH 28.6 pg (28.0-34.0) 02/06/23 17:20 MCHC 32.1 g/dL (30.0-36.0) 02/06/23 17:20 RDW 13.0 % (12.1-15.1) 02/06/23 17:20 Plt Count 186 10^3/cmm (130-400) 02/06/23 17:20 MPV 10.8 fL (7.4-10.4) H 02/06/23 17:20 Neut % (Auto) 88.0 % 02/06/23 17:20 Lymph % (Auto) 4.1 % 02/06/23 17:20 [place] % (Auto) 5.8 % 02/06/23 17:20 Eos % (Auto) 0.0 % 02/06/23 17:20 Baso % (Auto) 0.4 % 02/06/23 17:20 Neut # (Auto) 29.05 10^3/uL (1.8-7.7) H 02/06/23 17:20 Lymph # (Auto) 1.4 10^3/uL (0.8-4.8) 02/06/23 17:20 [place] # (Auto) 1.9 10^3/uL (0.2-0.9) H 02/06/23 17:20 Eos # (Auto) 0.0 10^3/uL (0.0-0.8) 02/06/23 17:20 Baso # (Auto) 0.1 10^3/uL (0.0-0.1) 02/06/23 17:20 Nucleated RBC % (auto) 0 % 02/06/23 17: Nucleated RBCs # 0.0 /100WBC 02/06/23 17:20 Sodium 132 mmol/L (136-145) L 02/06/23 17:20 Potassium 4.1 mmol/L (3.5-5.1) 02/06/23 17:20 Chloride 94 mmol/L (98-107) L 02/06/23 17:20 Carbon Dioxide 21 mmol/L (22-29) L 02/06/23 17:20 Anion Gap 21.1 (5-19) H 02/06/23 17:20 BUN 26 mg/dL (8-23) H 02/06/23 17:20 Creatinine 1.4 mg/dL (0.5-0.9) H 02/06/23 17:20 GFR Calculation Not Reportable 02/06/23 17:20 Glucose 256 mg/dL (65-115) H 02/06/23 17:20 Calculated Osmolality 288 mOsm/kg (285-295) 02/06/23 17:20 Lactic Acid 3.3 mmol/L (0.5-2.2) H 02/06/23 17:20 Calcium 9.1 mg/dL (8.5-10.5) 02/06/23 17:20 Total Bilirubin 2.0 mg/dL (0.15-1.2) H 02/06/23 17:20 AST 24 U/L (0-32) 02/06/23 17:20 ALT 12 U/L (0-33) 02/06/23 17:20 Alkaline Phosphatase 100 U/L (35-105) 02/06/23 17:20 Troponin T Baseline 20 ng/L (0-10) H 02/06/23 17:20 Troponin T 120 Minute 16.25 ng/L (0-10) H 02/06/23 19:20 Delta Troponin T -3.75 ABS# (0-10) L 02/06/23 19:20 Total Protein 6.8 g/dL (6.6-8.7) 02/06/23 17:20 Albumin 4.3 g/dL (3.5-5.2) 02/06/23 17:20 Globulin 2.5 g/dL (1.3-4.6) 02/06/23 17:20 Urine Color Yellow (Yellow) 02/06/23 19:31 Urine Appearance Sl hazy (CLEAR) A 02/06/23 19:31 Urine pH 5 (5-7) 02/06/23 19:31 Ur Specific [place] 1.020 (1.005-1.030) 02/06/23 19:31 Urine Protein 1+ (Negative) H 02/06/23 19:31 Urine Glucose (UA) 1+ (Normal) H 02/06/23 19:31 Urine Ketones 1+ (Negative) H 02/06/23 19:31 Urine Blood 3+ (Negative) H 02/06/23 19:31 Urine Nitrate Negative (Negative) 02/06/23 19:31 Urine Bilirubin 1+ (Negative) H 02/06/23 19:31 Urine Urobilinogen 1 mg/dL (Negative) H 02/06/23 19:31 Ur Leukocyte Esterase Trace (Negative) H 02/06/23 19:31 Urine RBC 5-10 /hpf (0-2) H 02/06/23 19:31 Urine WBC 5-10 /hpf (0-5) H 02/06/23 19:31 Ur Squamous Epith Cells 0-4 /hpf (0-5) H 02/06/23 19:31 Amorphous Sediment Not Reportable 02/06/23 19:31 Urine Bacteria None /hpf (NONE) 02/06/23 19:31 Hyaline Casts 0-4 /lpf H 02/06/23 19:31 Urine Mucus 2+ /hpf 02/06/23 19:31 Discharge Plan Discharge Patient Disposition: Admitted As Inpatient Admit Provider: Razia Harris Clinical Impression: Fall, Atrial fibrillation with rapid ventricular response, Dementia Fracture of distal end of humerus Qualifiers: Encounter type: initial encounter Fracture type: closed Fracture alignment: nondisplaced Laterality: left Condition: Stable Coding Level of Care Code ED Shellfish Shucker for Chg Fwd Documented by User: Taylor Young MD 02/06/23 23:42 HPI - Fall General: Chief Complaint: Fall Stated Complaint: Fall Time Seen by Provider: 02/06/23 15:23 PFS ED PFSH: Medical History Dementia Social History Smoking and tobacco status: never smoked Alcohol intake: never Substance/Drug Use: never Physical Exam Neuro: PANFILO COMA SCALE: document GCS findings [place] coma scale total score: 15 Course Vital Signs: Vital signs: Vital Signs Temperature 98.5 F 02/11/23 03:57 Pulse Rate 76 02/11/23 06:05 Respiratory Rate 19 H 02/11/23 03:57 Blood Pressure 128/65 02/11/23 03:57 Pulse Oximetry 81 L 02/11/23 03:57 Oxygen Delivery Me thod Nasal Cannula 02/11/23 03:57 Oxygen Flow Rate 2 02/10/23 20:10 MDM - Fall Medical Decision Making Patient is a witnessed trip and fall at her retirement prior to arrival. prison staff states she struck her head. Did not indicate any injury to left extremity on today's fall. She complains of pain to the left hand and wrist. These were x-rayed yesterday and negative. She has bruising and swelling to elbow and upper arm. XRs of these showing a distal humeral fracture. I spoke to Dr. Lugo who recommends splinting and he will follow-up in office and try to treat this nonsurgically. She is neurovascularly intact. Care transferred to [facility] PA-[facility] pending CT scans of her head/cervical spine. Hector Chandler I assumed care of this patient from [facility] - the patient developed a fib with RVR and appeared dyspneic prior to completion of her treatment from her fall. We have no records from he IN and are assuming that this a fib is new. We are attempting to contact her IN to get her medication list and history without success at this time. She was started on cardizem and given IV fluid for BP in the 90's. She has a history of dementia apparently, and is agitated in the ED. She pulled her IV out multiple times in the ED and required constant redirection. She has a WBC of 33,000 but it is unclear why this is. She doesn't have evidence of infection on CXR, UA, physical exam. Potentially related to stress from the injury? Admitting to Dr. Harris for further management. Lab Data 02/11/23 01:57 02/11/23 01:57 Radiology Impressions Cervical Spine CT 02/06/23 15:57 IMPRESSION: No acute findings. Head CT 02/06/23 15:57 IMPRESSION: No acute intracranial abnormality. Elbow X-Ray 02/06/23 15:58 IMPRESSION: Distal left humeral fracture as above. Humerus X-Ray 02/06/23 15:58 IMPRESSION: Distal left humeral fracture. Chest/Abdomen/Pelvis CT 02/06/23 20:33 IMPRESSION: 1. No acute thoracic findings. Please see abdominopelvic CT exam report below. 2. Coronary calcification and minimal dilatation of main pulmonary artery. 3. Multinodular goiter. See comments below. IMPRESSION: 1. Somewhat limited exam due to artifacts and lack of contrast. Please see chest CT exam report above. 2. Cholelithiasis. 3. Long segment mild diffuse small bowel distension with no obvious abrupt transition or pneumatosis. Findings suggest distal small bowel obstruction and follow-up should be obtained. Surgical consultation should also be considered. Moderate fluid-filled gastric lumen. Prior CT exam June 2017 demonstrated small-bowel obstruction with higher grade than prior exam. Gastroenteritis/ileus should also be excluded clinically. No free air or obvious drainable abscess. Bowel wall assessment is limited due to lack of contrast. 4. Moderate proximal colonic liquid stool and moderate-large solid rectal/sigmoid colon stool which may represent early fecal impaction. There is also probable mild stercoral proctitis. Colonic diverticulosis without diverticulitis. 5. Incidental multiple renal lesions as described above. Nonemergent sonographic correlation of the heterogeneous left renal lesion may be helpful. 6. Multi fibroid uterus with calcifications as described. COMMENTS: Consistent with the [place] [employer]'s Incidental Findings Committee white paper (J Am Albert Radiol 2018): Any incidental renal lesion less than 1 cm or classified as too small to characterize, or any incidental cystic renal lesion characterized as simple-appearing, is likely benign. No follow-up imaging is recommended for these lesions per consensus recommendations based on imaging criteria. Abdomen X-Ray 02/09/23 08:59 IMPRESSION: Similar degree of multiple dilated small bowel loops with interval placement of enteric tube terminating in the stomach. KUB X-Ray 02/09/23 17:56 IMPRESSION: 1. Multiple large calcified uterine fibroids. 2. Dilated loops of small bowel up to 4.9 cm in diameter consistent with obstruction versus ileus versus enteritis. Chest X-Ray 02/10/23 22:28 IMPRESSION: Interval retraction of the right PICC line noted terminating in the SVC. Laboratory Results WBC 33.0 10^3/uL (4.0-10.0) H* 02/06/23 17:20 RBC 4.96 10^6/uL (4.1-5.3) 02/06/23 17:20 Hgb 14.2 g/dL (11.5-15.3) 02/06/23 17:20 Hct 44.2 % (37.0-47.0) 02/06/23 17:20 MCV 89.1 fl (81-99) 02/06/23 17:20 MCH 28.6 pg (28.0-34.0) 02/06/23 17:20 MCHC 32.1 g/dL (30.0-36.0) 02/06/23 17:20 RDW 13.0 % (12.1-15.1) 02/06/23 17:20 Plt Count 186 10^3/cmm (130-400) 02/06/23 17:20 MPV 10.8 fL (7.4-10.4) H 02/06/23 17:20 Neut % (Auto) 88.0 % 02/06/23 17:20 Lymph % (Auto) 4.1 % 02/06/23 17:20 [place] % (Auto) 5.8 % 02/06/23 17:20 Eos % (Auto) 0.0 % 02/06/23 17:20 Baso % (Auto) 0.4 % 02/06/23 17:20 Neut # (Auto) 29.05 10^3/uL (1.8-7.7) H 02/06/23 17:20 Lymph # (Auto) 1.4 10^3/uL (0.8-4.8) 02/06/23 17:20 [place] # (Auto) 1.9 10^3/uL (0.2-0.9) H 02/06/23 17:20 Eos # (Auto) 0.0 10^3/uL (0.0-0.8) 02/06/23 17:20 Baso # (Auto) 0.1 10^3/uL (0.0-0.1) 02/06/23 17:20 Nucleated RBC % (auto) 0 % 02/06/23 17:20 Nucleated RBCs # 0.0 /100WBC 02/06/23 17:20 Sodium 132 mmol/L (136-145) L 02/06/23 17:20 Potassium 4.1 mmol/L (3.5-5.1) 02/06/23 17:20 Chloride 94 mmol/L (98-107) L 02/06/23 17:20 Carbon Dioxide 21 mmol/L (22-29) L 02/06/23 17:20 Anion Gap 21.1 (5-19) H 02/06/23 17:20 BUN 26 mg/dL (8-23) H 02/06/23 17:20 Creatinine 1.4 mg/dL (0.5-0.9) H 02/06/23 17:20 GFR Calculation Not Reportable 02/06/23 17:20 Glucose 256 mg/dL (65-115) H 02/06/23 17:20 Calculated Osmolality 288 mOsm/kg (285-295) 02/06/23 17:20 Lactic Acid 3.3 mmol/L (0.5-2.2) H 02/06/23 17:20 Calcium 9.1 mg/dL (8.5-10.5) 02/06/23 17:20 Total Bilirubin 2.0 mg/dL (0.15-1.2) H 02/06/23 17:20 AST 24 U/L (0-32) 02/06/23 17:20 ALT 12 U/L (0-33) 02/06/23 17:20 Alkaline Phosphatase 100 U/L (35-105) 02/06/23 17:20 Troponin T Baseline 20 ng/L (0-10) H 02/06/23 17:20 Troponin T 120 Minute 16.25 ng/L (0-10) H 02/06/23 19:20 Delta Troponin T -3.75 ABS# (0-10) L 02/06/23 19:20 Total Protein 6.8 g/dL (6.6-8.7) 02/06/23 17:20 Albumin 4.3 g/dL (3.5-5.2) 02/06/23 17:20 Globulin 2.5 g/dL (1.3-4.6) 02/06/23 17:20 Urine Color Yellow (Yellow) 02/06/23 19:31 Urine Appearance Sl hazy (CLEAR) A 02/06/23 19:31 Urine pH 5 (5-7) 02/06/23 19:31 Ur Specific [place] 1.020 (1.005-1.030) 02/06/23 19:31 Urine Protein 1+ (Negative) H 02/06/23 19:31 Urine Glucose (UA) 1+ (Normal) H 02/06/23 19:31 Urine Ketones 1+ (Negative) H 02/06/23 19:31 Urine Blood 3+ (Negative) H 02/06/23 19:31 Urine Nitrate Negative (Negative) 02/06/23 19:31 Urine Bilirubin 1+ (Negative) H 02/06/23 19:31 Urine Urobilinogen 1 mg/dL (Negative) H 02/06/23 19:31 Ur Leukocyte Esterase Trace (Negative) H 02/06/23 19:31 Urine RBC 5-10 /hpf (0-2) H 02/06/23 19:31 Urine WBC 5-10 /hpf (0-5) H 02/06/23 19:31 Ur Squamous Epith Cells 0-4 /hpf (0-5) H 02/06/23 19:31 Amorphous Sediment Not Reportable 02/06/23 19:31 Urine Bacteria None /hpf (NONE) 02/06/23 19:31 Hyaline Casts 0-4 /lpf H 02/06/23 19:31 Urine Mucus 2+ /hpf 02/06/23 19:31 Discharge Plan Discharge Patient Disposition: Admitted As Inpatient Admit Provider: Razia Harris Clinical Impression: Fall, Atrial fibrillation with rapid ventricular response, Dementia Fracture of distal end of humerus Qualifiers: Encounter type: initial encounter Fracture type: closed Fracture alignment: nondisplaced Laterality: left Condition: Stable Coding Level of Care Code ED Shellfish Shucker for Lorelei Rodney
--- NOTE | 2023-02-06 15:57 | CTR_ITS ---
PROCEDURE INFORMATION: Exam: CT Head Without Contrast Exam date and time: 02/06/2023 4:19 PM Age: 87 years old Clinical indication: Injury or trauma; Fall; Blunt trauma (contusions or hematomas) TECHNIQUE: Imaging protocol: Computed tomography of the head without contrast. Radiation optimization: All CT scans at this facility use at least one of these dose optimization techniques: automated exposure control; mA and/or kV adjustment per patient size (includes targeted exams where dose is matched to clinical indication); or iterative reconstruction. REPORTING DATA: Count of CT and Cardiac NM exams in prior 12 months: This patient has received [address] and 0 known cardiac nuclear medicine studies in the 12 months prior to the current study. COMPARISON: CT head wo con* [id number] 05/09/2022 7:29 PM RADIATION DOSE METRICS: Total DLP (mGy-cm): 1063.28 FINDINGS: Brain: No hemorrhage. Moderate diffuse cerebral atrophy and mild sequela of chronic small vessel ischemic disease. 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 No mass effect. Cerebral ventricles: No ventriculomegaly. Paranasal sinuses: Visualized sinuses are unremarkable. No fluid levels. Mastoid air cells: Visualized mastoid air cells are well aerated. Bones/joints: Unremarkable. No acute fracture. Soft tissues: Unremarkable. CT/CT head wo con* [id number] IMPRESSION: No acute intracranial abnormality.
--- NOTE | 2023-02-06 15:57 | CTR_ITS ---
PROCEDURE INFORMATION: Exam: CT Cervical Spine Without Contrast Exam date and time: 02/06/2023 4:19 PM Age: 87 years old Clinical indication: Injury or trauma; Fall; Blunt trauma TECHNIQUE: Imaging protocol: Computed tomography of the cervical spine without contrast. Radiation optimization: All CT scans at this facility use at least one of these dose optimization techniques: automated exposure control; mA and/or kV adjustment per patient size (includes targeted exams where dose is matched to clinical indication); or iterative reconstruction. REPORTING DATA: Count of CT and Cardiac NM exams in prior 12 months: This patient has received [address] and 0 known cardiac nuclear medicine studies in the 12 months prior to the current study. COMPARISON: [place] [id number] 08/10/2022 1:53 PM RADIATION DOSE METRICS: Total DLP (mGy-cm): 150.6 FINDINGS: Bones/joints: No acute fracture. Normal alignment. No severe spinal canal stenosis. Lungs: Lung apices are normal. Thyroid: Multinodular goiter. Soft tissues: Unremarkable. CT/CT cervical spin wo con* [id number] IMPRESSION: No acute findings.
--- NOTE | 2023-02-06 15:58 | XR_ITS ---
WS: [id number] XR elbow LT min 3V* [id number] REASON FOR EXAM: fall FINDINGS: Transverse fracture through the distal humerus just above the condyles. The distal fracture fragment is minimally comminuted at the medial margin of the fracture. There is 4 to 5 mm of anterior and medial displacement of the distal fracture fragment with the intac t humeral ulnar and humeral radial joints in relation to the proximal humerus fragment. Mild posterior angulation at the fracture site. Articular surfaces of the distal humerus are intact. Radius and ulna are intact. XR/XR elbow LT min 3V* [id number] IMPRESSION: Distal left humeral fracture as above.
--- NOTE | 2023-02-06 15:58 | XR_ITS ---
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 Clavicle intact. The proximal humerus is intact. No fracture identified. Transverse fracture through the distal humerus at the level of the condyles. Elbow images (which have been ordered) well provide greater detail of the character of the fracture. XR/[place] [id number] IMPRESSION: Distal left humeral fracture.
--- NOTE | 2023-02-06 16:59 | XRR_ITS ---
PROCEDURE INFORMATION: Exam: XR Chest Exam date and time: 02/06/2023 5:09 PM Age: 87 years old Clinical indication: Pain; Chest pressure; Additional info: Chest pain TECHNIQUE: Imaging protocol: Radiologic exam of the chest. Views: 1 view. COMPARISON: CR XR chest 1V [id number] 07/05/2017 12:06 AM FINDINGS: Lungs: Unremarkable. No consolidation. Pleural spaces: Unremarkable. No pleural effusion. No pneumothorax. Heart/Mediastinum: Atherosclerotic wall calcifications noted at the aortic arch. No cardiomegaly. Bones/joints: Unremarkable. XR/XR chest 1V portable [id number] IMPRESSION: No acute findings.
--- NOTE | 2023-02-06 17:04 | ECG_ITS ---
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 Measurements Intervals [place] Rate: 139 P: 0 CO: 0 QRS: 58 QRSD: 85 T: 42 QT: 297 QTc: 452 Interpretive Statements ATRIAL FIBRILLATION WITH RAPID VENTRICULAR RESPONSE NONSPECIFIC ST & T-WAVE ABNORMALITY Compared to ECG 07/05/2017 03:30:37 T-wave abnormality now present Sinus rhythm no longer present Electronically Signed On 02-07-2023 12:17:23 CDT by Francisco Javier Miles M.D. [id number] f
[2023-02-06] MEDS: dilTIAZem 100 MG in sodium chloride 0.9% (add-van) 100 ML IV (17:25)
[2023-02-06] MEDS: sodium chloride 0.9% 500 ML 999 ML IV (17:27)
[2023-02-06] MEDS: dilTIAZem 5 mg/mL SDV 5 mL 10 MG IVP (17:27)
[2023-02-06 17:37] LABS: Basophils # 0.1 10^3/uL (0.0-0.1); Basophils % 0.4 %; Hematocrit 44.2 % (37.0-47.0); Hemoglobin 14.2 g/dL (11.5-15.3); Lymphocytes # 1.4 10^3/uL (0.8-4.8); Lymphocytes % 4.1 %; Mean Corpuscular HGB Conc 32.1 g/dL (30.0-36.0); Mean Corpuscular Hemoglobin 28.6 pg (28.0-34.0); Mean Corpuscular Volume 89.1 fl (81-99); Mean Platelet Volume 10.8 fL (7.4-10.4); Monocytes # 1.9 10^3/uL (0.2-0.9); Monocytes % 5.8 %; Neutrophils # 29.05 10^3/uL (1.8-7.7); Nucleated Red Blood Cells % 0 %; Platelet Count 186 10^3/cmm (130-400); Red Blood Count 4.96 10^6/uL (4.1-5.3)
--- NOTE | 2023-02-06 17:53 | PC.NURSE ---
WENT IN TO CHECK ON PT. PT HAD EXPIRATORY WHEEZING HER O2 WAS 85% ON RA AND HR WAS 165. TONG GOLD WAS NOTIFIED AND CARE WAS TRANSFERRED TO DR. SHAH FURTHER ORDERS WERE PLACED.
[2023-02-06 17:55] LABS: Troponin(5th) Baseline 20 ng/L (0-10)
[2023-02-06 17:57] LABS: Alanine Aminotransferase 12 U/L (0-33); Albumin Level 4.3 g/dL (3.5-5.2); Alkaline Phosphatase 100 U/L (35-105); Anion Gap 21.1 (5-19); Aspartate Amino Transferase 24 U/L (0-32); Blood Urea Nitrogen 26 mg/dL (8-23); Calcium 9.1 mg/dL (8.5-10.5); Carbon Dioxide 21 mmol/L (22-29); Chloride 94 mmol/L (98-107); Globulin 2.5 g/dL (1.3-4.6); Glucose 256 mg/dL (65-115); Osmolality Calculated 288 mOsm/kg (285-295); Potassium 4.1 mmol/L (3.5-5.1); Sodium 132 mmol/L (136-145); Total Protein 6.8 g/dL (6.6-8.7)
[2023-02-06 18:42] LABS: Lactic Sepsis W/Reflex 3.3 mmol/L (0.5-2.2)
--- NOTE | 2023-02-06 18:59 | ECG_ITS ---
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 Measurements Intervals [place] Rate: 136 P: 0 [place]: 0 QRS: 49 QRSD: 80 T: -11 QT: 301 QTc: 454 Interpretive Statements ATRIAL FIBRILLATION WITH RAPID VENTRICULAR RESPONSE NONSPECIFIC ST & T-WAVE ABNORMALITY Compared to ECG 02/06/2023 17:04:07 No significant changes Electronically Signed On 02-07-2023 12:24:13 CDT by Francisco Javier Miles M.D. [id number]
[2023-02-06 20:02] LABS: Add Urine Microscopic? YES; Bilirubin Urine 1+ (Negative); Blood Urine 3+ (Negative); Glucose Urine UA 1+ (Normal); Ketones Urine 1+ (Negative); Leukocyte Esterase Urine Trace (Negative); Nitrate Urine Negative (Negative); Protein Urine 1+ (Negative); Urine Appearance SL Hazy (CLEAR); Urine Color Yellow (Yellow); Urobilinogen Urine 1 mg/dL (Negative); pH Urine 5 (5-7)
[2023-02-06 20:03] LABS: Mucus Urine 2+ /hpf; Squamous Epithelial Cell Urine 0-4 /hpf (0-5)
[2023-02-06 20:04] LABS: Troponin 5 2HR 16.25 ng/L (0-10)
[2023-02-06 20:04] LABS: Add Urine Culture? No; Hyaline Casts Urine 0-4 /lpf
[2023-02-06 20:09] LABS: Troponin 5 2HR Delta -3.75 ABS# (0-10)
[2023-02-06 20:15] LABS: Reflex Lactate Order REFLEX LACTIC ORDERD
--- NOTE | 2023-02-06 20:33 | CTR_ITS ---
PROCEDURE INFORMATION: Exam: CT Chest Without Contrast; Diagnostic Exam date and time: 02/07/2023 2:24 AM Age: 87 years old Clinical indication: Other: Sepsis; Additional info: Sepsis. R/O source TECHNIQUE: Imaging protocol: Diagnostic computed tomography of the chest without contrast. Radiation optimization: All CT scans at this facility use at least one of these dose optimization techniques: automated exposure control; mA and/or kV adjustment per patient size (includes targeted exams where dose is matched to clinical indication); or iterative reconstruction. REPORTING DATA: Count of CT and Cardiac NM exams in prior 12 months: This patient has received [address] and 0 known cardiac nuclear medicine studies in the 12 months prior to the current study. COMPARISON: CR (CHEST, ) 02/06/2023 11:41 PM RADIATION DOSE METRICS: Total DLP (mGy-cm): 359.3 FINDINGS: Thyroid: Enlarged partially visualized thyroid gland with is heterogeneous multinodular containing calcifications. There is slight deviation of the lower trachea to the right with mild regional tracheal luminal narrowing. Correlation with prior thyroid imaging should be considered. Lungs: Lung assessment is somewhat limited due to artifacts. Bibasilar linear scarring-atelectasis with otherwise no lung consolidation or ground-glass opacity. Calcified granuloma lateral left lung base. Osteopenia. Pleural spaces: Unremarkable. No pneumothorax. No pleural effusion. Heart: Normal heart size with coronary calcification. No vascular congestion. Lymph nodes: No enlarged lymph nodes. Vasculature: Minimal dilatation of main pulmonary artery at 3.2 cm. Ascending aorta measures 3.8 cm. Bones/joints: Multilevel vertebral disc degeneration and endplate osteophytes. No acute osseous findings otherwise. Soft tissues: No acute findings. Other findings: Several images are somewhat degraded by artifacts from the patient's arm(s.) COMMENTS: 1. Consistent with the [employer]'s Incidental Findings Committee white paper (J Am Albert Radiol 2015): In patients aged 35 years and older with an incidental thyroid nodule equal to or greater than 1.[address], MRI or extrathyroidal US, further evaluation with dedicated nonemergent thyroid US is recommended for patients with normal life expectancy and without comorbidities. For smaller nodules without suspicious features, no further evaluation or follow up is recommended. 2. Limited life expectancy and comorbidities that increase the risk of treatment or are more likely to cause morbidity and mortality than the thyroid cancer itself. Patients with comorbidities or limited life expectancy should not have further evaluation, unless it is warranted clinically, or specifically requested by the patient or referring physician. PROCEDURE INFORMATION: Exam: CT Abdomen And Pelvis Without Contrast Exam date and time: 02/07/2023 2:24 AM Age: 87 years old Clinical indication: Other: Sepsis; Additional info: Sepsis. R/O source TECHNIQUE: Imaging protocol: Computed tomography of the abdomen and pelvis without contrast. Radiation optimization: All CT scans at this facility use at least one of these dose optimization techniques: automated exposure control; mA and/or kV adjustment per patient size (includes targeted exams where dose is matched to clinical indication); or iterative reconstruction. REPORTING DATA: Count of CT and Cardiac NM exams in prior 12 months: This patient has received [address] and 0 known cardiac nuclear medicine studies in the 12 months prior to the current study. COMPARISON: CT abdomen pelvis w con* [id number] 07/04/2017 10:27 PM RADIATION DOSE METRICS: Total DLP (mGy-cm): 679.4 FINDINGS: Liver: Normal. No mass. Gallbladder and bile ducts: Multiple prominent calcified gallbladder calculi measuring up to 3 cm. No obvious imaging signs of acute cholecystitis or bile duct dilatation. Pancreas: Normal. No ductal dilation. Spleen: Normal. No splenomegaly. Adrenal glands: Normal. No mass. Kidneys and ureters: See Gallbladder and bile ducts finding. Exophytic medial posterior heterogeneous mainly hypodense left lower renal pole lesion measuring 3.7 x 3.6 cm. The feature is not compatible with simple cyst and may represent benign cyst with proteinaceous/hemorrhagic content versus solid neoplasm. Prominent exophytic left upper pole hypodense lesion is likely simple cyst measuring 8.5 cm. Exophytic lateral hypodense right renal lesion is likely simple cyst measuring 4.5 cm. There is a tiny posterior right lower pole angiomyolipoma. No hydronephrosis or obstructing calculi. Another small hyperdense left interpolar lesion measures 7 mm, likely benign hemorrhagic cyst. Stomach and bowel: Moderate proximal colonic stool in the proximal colon. Moderate-large solid stool material in the distal sigmoid and rectum which may represent early fecal impaction and clinical correlation is needed. There is mild distal rectal wall thickening suggesting mild stercoral proctitis. Otherwise no suspicious bowel wall thickening or pneumatosis. Assessment is limited due to lack of contrast however. There is a long segment mild small bowel dilatation with no obvious abrupt transition. Findings may represent early small obstruction or diffuse ileus. There is sigmoid colonic diverticulosis with no diverticulitis. Appendix: No evidence of appendicitis. Intraperitoneal space: Unremarkable. No free air. No significant fluid collection. Vasculature: Extensive arterial calcifications without aneurysm. Lymph nodes: No enlarged lymph nodes. Urinary bladder: See Reproductive finding. Reproductive: Enlarged multilobulated uterine contour with several calcified intramural and subserosal myometrial masses, likely multi fibroid uterus with calcifications, the largest measuring 7.3 by 3.6 by 4.8 cm exerting some mass effect on the urinary bladder and upper rectum. There is moderate gastric luminal distention.. Bones/joints: Osteopenia. Multilevel vertebral disc degeneration and endplate osteophytes. No acute osseous findings otherwise. Soft tissues: No acute findings. Other findings: Several images are somewhat degraded by artifacts from the patient's arm(s.) CT/[place] [id number] IMPRESSION: 1. No acute thoracic findings. Please see abdominopelvic CT exam report below. 2. Coronary calcification and minimal dilatation of main pulmonary artery. 3. Multinodular goiter. See comments below. IMPRESSION: 1. Somewhat limited exam due to artifacts and lack of contrast. Please see chest CT exam report above. 2. Cholelithiasis. 3. Long segment mild diffuse small bowel distension with no obvious abrupt transition or pneumatosis. Findings suggest distal small bowel obstruction and follow-up should be obtained. Surgical consultation should also be considered. Moderate fluid-filled gastric lumen. Prior CT exam June 2017 demonstrated small-bowel obstruction with higher grade than prior exam. Gastroenteritis/ileus should also be excluded clinically. No free air or obvious drainable abscess. Bowel wall assessment is limited due to lack of contrast. 4. Moderate proximal colonic liquid stool and moderate-large solid rectal/sigmoid colon stool which may represent early fecal impaction. There is also probable mild stercoral proctitis. Colonic diverticulosis without diverticulitis. 5. Incidental multiple renal lesions as described above. Nonemergent sonographic correlation of the heterogeneous left renal lesion may be helpful. 6. Multi fibroid uterus with calcifications as described. COMMENTS: Consistent with the [employer]'s Incidental Findings Committee white paper (J Am Albert Radiol 2018): Any incidental renal lesion less than 1 cm or classified as too small to characterize, or any incidental cystic renal lesion characterized as simple-appearing, is likely benign. No follow-up imaging is recommended for these lesions per consensus recommendations based on imaging criteria.
[2023-02-06 21:08] LABS: ABG PCO2 44.6 mmHg (35-45); ABG PH Result 7.38 (7.35-7.45); Arterial Blood Gas Hematocrit 41.5 % (37-47); Base Excess ABG 1.1 mmol/L (-2.0-2.0); Blood Gas Allen Test Pos; Blood Gas Sample Site Radial, right; Blood Gas Sample Type Arterial; HCO3 ABG 26.6 mmol/L (22-26); Oxygen Device NC; PO2 ABG 56.5 mmHg (80.0-100.0)
[2023-02-06 21:22] LABS: Lactic Acid level (Lactate) 3.4 mmol/L (0.5-2.2)
[2023-02-06 21:27] LABS: D Dimer 5.03 ug/mIFEU (0-0.59)
--- NOTE | 2023-02-06 22:31 | XRR_ITS ---
PROCEDURE INFORMATION: Exam: XR Chest Exam date and time: 02/06/2023 11:41 PM Age: 87 years old Clinical indication: Other: Vomitting; Additional info: Coffee ground emesis TECHNIQUE: Imaging protocol: Radiologic exam of the chest. Views: 1 view. COMPARISON: CR (CHEST, ) 02/06/2023 5:09 PM FINDINGS: Lungs: Moderate lung expansion. Focal opacity near the left lateral costophrenic sulcus. Mild bibasilar atelectasis. Pleural spaces: Left lateral costophrenic sulcus visualized. No pneumothorax. Heart/Mediastinum: Likely unchanged cardiomediastinal silhouette when accounting for differences in patient rotation. Aortic calcifications. Bones/joints: No acute osseous abnormality. XR/XR chest 1V portable [id number] IMPRESSION: Focal opacity near the left lateral costophrenic sulcus which is indeterminate for a small pleural effusion with regional atelectasis versus focus of aspiration/pneumonia.
[2023-02-06] MEDS: ondansetron 2 mg/ML SDV 2 mL 4 MG IVP (22:40)
--- NOTE | 2023-02-06 22:45 | PC.NURSE ---
Pt had small amount of coffee ground emesis. Dr. Harris notified. Give orders to give Zofran 4mg IVP x1, Stat chest xray.
--- NOTE | 2023-02-06 22:56 | PM.HP ---
Providers/Chief Complaint Admitting Physician: Razia Harris MD Chief Complaint: Fall History of Present Illness Lissa Pete is a 87 year old female who has severe dementia, not able to provide history, I called [facility], nurse stated that she has a pain of a 10-year-old, she is able to carry her daily activities on her own without any assistance, she is able to do simple questions, lately she has been falling and losing her balance, she felt face forward today on the ground and fractured her left arm, ED was about to discharge her when she went into A-fib with RVR she was put on Cardizem drip 15 mg which dropped her blood pressure, rapid response was called at that point 1 L bolus was given, she has significant leukocytosis, CT chest abdomen pelvis requested, there is high risk for aspiration, septic bolus will be administered along antibiotics, blood and sputum culture requested, CODE STATUS was confirmed with the [facility], we were told by the nursing staff that she is DNI/DNI, Cardizem drip stopped, will switch to amiodarone Patient had 1 episode of hematemesis in the CSU Review of Systems General: Reports: ROS unobtainable due to medical condition Medications/Allergies Allergies Allergy/AdvReac Type Severity Reaction Status Date / Time No Known Allergies Allergy Verified 02/06/23 15:25 PFSH Acute PFSH: Medical History Dementia Social History Smoking and tobacco status: never smoked Alcohol intake: never Substance/Drug Use: never Vitals/I&O/Wt Last Vital Signs Temp 97.7 F 02/06/23 15:21 Pulse 107 H 02/06/23 20:00 Resp 16 02/06/23 18:05 BP 148/70 02/06/23 20:00 Pulse Ox 95 02/06/23 18:50 O2 Del Method Nasal Cannula 02/06/23 18:35 O2 Flow Rate 4 02/06/23 18:35 02/06/23 02/06/23 02/06/23 06:59 14:59 22:59 Intake Total 23.876 / 23.876 Balance 23.876 / 23.876 Weight last 48 hrs Weight 49.895 kg Physical Exam Narrative: Patient not able to reciprocate Laying supine Active wheezing Currently on room air Blood pressure 100/36 mmHg A-fib RVR heart rate in 120s Cardizem drip running at 50 mg/h which was stopped Abdomen soft, bowel sounds sluggish Lower extremity nonpitting edema Neuro exam is limited Left arm is in splint Septic exam Cap refill is normal Baseline mentation No skin mottling Data 02/06/23 17:20 02/06/23 17:20 Micro: Microbiology 02/06/23 20:20 Blood Culture - Preliminary Blood SPECIMEN COLLECTED 02/06/23 20:17 Blood Culture - Preliminary Blood SPECIMEN COLLECTED A&P Assessment and plan (1) Fall: (2) Multiple contusions: (3) Fracture of distal end of humerus: Qualifiers: Encounter type: initial encounter Fracture alignment: nondisplaced Fracture type: closed Laterality: left (4) UGIB (upper gastrointestinal bleed): Plan Recurrent falls: Left humeral fracture Dr. Lugo recommended conservative management with splint New onset A-fib with RVR Switch to amiodarone Discontinue Cardizem which dropped her blood pressure and rapid response was called Upper GI bleed: Start Protonix, requested stat chest abdomen pelvis CT scan, start antibiotics Significant leukocytosis, tachypnea tachycardia and low blood pressure with high lactic acid concern for sepsis related to aspiration pneumonia Blood cultures taken Septic bolus administered 30 mL/kg 1500 mL bolus needed Severe dementia Patient is at [facility] Rapid response was called for hypotension related to Cardizem Monitor for development of septic shock Change to amiodarone DNR/DNI N.p.o. Attestations Medical Necessity Statement*: Anticipating more than 2 midnights Diagnoses Fall W19.XXXA Multiple contusions T07.XXXA Fracture of distal end of humerus S42.409A Encounter type: initial encounter Fracture alignment: nondisplaced Fracture type: closed Laterality: left UGIB (upper gastrointestinal bleed) K92.2
--- NOTE | 2023-02-06 22:59 | ECG_ITS ---
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 Measurements Intervals [place] Rate: 105 P: 67 CO: 159 QRS: 39 QRSD: 77 T: 78 QT: 326 QTc: 432 Interpretive Statements SINUS TACHYCARDIA WITH FREQUENT SUPRAVENTRICULAR PREMATURE COMPLEXES NONSPECIFIC T-WAVE ABNORMALITY Compared to ECG 02/06/2023 19:09:01 Atrial fibrillation no longer present T-wave abnormality still present Electronically Signed On 02-07-2023 12:21:55 CDT by Francisco Javier Miles M.D. [id number]
[2023-02-06 23:00] LABS: Glucose Point of Care 251 mg/dL (70-110)
[2023-02-07] VITALS (60 sets, daily range): BP systolic 82–174; BP diastolic 31–106; PULSE 72–176; RESP 16–37; TEMP 36.4–38.1; O2SAT 93–100
--- NOTE | 2023-02-07 00:01 | USCV_ITS ---
Lissa Pete Age: 87 Gender: F : 1935 Exam Date: 02/07/2023 01:01 Ordering Phys: Jane Head MD Technologist: BOBBY Exam Location: [facility] Indication: swelling. severe dementia, Patient incoherent in ICU-3 PROCEDURES: Venous duplex imaging was performed in bilateral lower extremities. The following venous structures were evaluated: common femoral vein, profunda vein, proximal portion of the greater saphenous vein, superficial femoral vein, and the popliteal vein. In addition, the posterior tibial veins were evaluated. Serial compression, augmentation maneuvers, and spectral Doppler flow evaluation were performed, which were normal. Bilaterally, the common femoral, superficial femoral, profunda femoral, popliteal, posterior tibial, and greater saphenous veins were identified and interrogated in the standard fashion. These veins were found to be easily compressible with spontaneous blood flow. No evidence of thrombus noted. CONCLUSIONS No evidence of right lower extremity DVT. No evidence of left lower extremity DVT. Amari Calles MD (Electronically Signed) Final Date: 07 February 2023 09:16 S
[2023-02-07 00:06] LABS: NT Pro B Type Natriuretic Pept 1126 pg/mL (0-450); Procalcitonin 1.72 ng/mL (0-0.5)
[2023-02-07 00:07] LABS: Thyroid Stimulating Hormone 0.35 uIU/mL (0.27-4.20)
[2023-02-07] MEDS: sodium chloride 0.9% 1,000 ML 999 ML IV (00:15)
[2023-02-07] MEDS: pantoprazole 40 mg SDV IVP ×3 (00:19→22:51)
[2023-02-07] MEDS: piperacillin-tazobactam 3.375 GM in sodium chloride 0.9% (plus) 50 ML IV ×3 (00:20→17:48)
[2023-02-07] MEDS: OLANZapine 10 mg VIAL 2.5 MG IM (00:52)
[2023-02-07] MEDS: cefepime 1,000 MG in sodium chloride 0.9% (plus) 50 ML 100 MG IV (01:49)
[2023-02-07] MEDS: sodium chloride 0.9% 1,000 ML 100 ML IV (01:49)
[2023-02-07] MEDS: vancomycin 750 MG in sodium chloride 0.9% 250 ML 250 MG IV (01:50)
[2023-02-07 03:25] LABS: Anion Gap 15.3 (5-19); Blood Urea Nitrogen 36 mg/dL (8-23); Calcium 8.3 mg/dL (8.5-10.5); Carbon Dioxide 24 mmol/L (22-29); Chloride 100 mmol/L (98-107); Glucose 148 mg/dL (65-115); Magnesium 1.6 mg/dL (1.7-2.3); Osmolality Calculated 291 mOsm/kg (285-295); Phosphorus 2.5 mg/dL (2.5-4.5); Potassium 4.3 mmol/L (3.5-5.1); Sodium 135 mmol/L (136-145)
[2023-02-07] MEDS: magnesium sulfate premix 2 GM/50 ML PIGGYBACK IV (04:30)
--- NOTE | 2023-02-07 04:31 | ECG_ITS ---
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 Measurements Intervals [place] Rate: 151 P: 99 IA: 136 QRS: 75 QRSD: 76 T: 65 QT: 278 QTc: 441 Interpretive Statements ATRIAL FLUTTER WITH RVR Compared to ECG 02/07/2023 02:05:29 ST (T wave) deviation now present T-wave abnormality no longer present Electronically Signed On 02-07-2023 12:15:10 CDT by Francisco Javier Miles M.D. [id number] f
[2023-02-07] MEDS: metoprolol tartrate 1 mg/1 mL SDV 5 mL 5 MG IVP (04:41)
[2023-02-07 05:35] LABS: Basophils # 0.1 10^3/uL (0.0-0.1); Basophils % 0.4 %; Eosinophils % 0.1 %; Hematocrit 40.2 % (37.0-47.0); Hemoglobin 12.9 g/dL (11.5-15.3); Lymphocytes # 1.2 10^3/uL (0.8-4.8); Lymphocytes % 6.1 %; Mean Corpuscular HGB Conc 32.1 g/dL (30.0-36.0); Mean Corpuscular Hemoglobin 28.5 pg (28.0-34.0); Mean Corpuscular Volume 88.7 fl (81-99); Mean Platelet Volume 10.7 fL (7.4-10.4); Monocytes # 1.4 10^3/uL (0.2-0.9); Monocytes % 7.1 %; Neutrophils # 16.39 10^3/uL (1.8-7.7); Neutrophils % 85.7 %; Nucleated Red Blood Cells % 0 %; Platelet Count 243 10^3/cmm (130-400); Red Blood Count 4.53 10^6/uL (4.1-5.3); Red Cell Distribution Width 13.1 % (12.1-15.1); White Blood Count 19.1 10^3/uL (4.0-10.0)
[2023-02-07 05:52] LABS: Alanine Aminotransferase 12 U/L (0-33); Alkaline Phosphatase 84 U/L (35-105); Anion Gap 14.2 (5-19); Aspartate Amino Transferase 24 U/L (0-32); Blood Urea Nitrogen 36 mg/dL (8-23); Calcium 8.3 mg/dL (8.5-10.5); Carbon Dioxide 24 mmol/L (22-29); Chloride 100 mmol/L (98-107); Glucose 131 mg/dL (65-115); Magnesium 2.9 mg/dL (1.7-2.3); Osmolality Calculated 288 mOsm/kg (285-295); Potassium 4.2 mmol/L (3.5-5.1); Sodium 134 mmol/L (136-145); Total Bilirubin 1.2 mg/dL (0.15-1.2)
[2023-02-07 05:57] LABS: Base Excess VBG -1.7 mmol/L (-3.0-3.0); Blood Gas Operator Identificat JB; Blood Gas Sample Site Not specified; Blood Gas Sample Type Venous; Oxygen Device NC; PCO2 VBG 49.3 mmHg (41-51); PO2 VBG 49.6 mmHg (25-40); Venous Blood Gas Hematocrit 38.9 % (37-47); pH VBG 7.31 (7.32-7.42)
[2023-02-07 05:59] LABS: Lactate (Lactic Acid level) 1.6 mmol/L (0.5-2.2)
[2023-02-07 06:41] LABS: Bilirubin Urine Neg (Negative); Blood Urine Trace (Negative); Glucose Urine UA Norm (Normal); Ketones Urine Negative (Negative); Nitrate Urine Negative (Negative); Protein Urine Neg (Negative); Specific Gravity, Urine 1.025 (1.005-1.030); Urine Appearance SL Hazy (CLEAR); Urine Color Dark Yellow (Yellow); Urobilinogen Urine 1 mg/dL (Negative); pH Urine 5 (5-7)
[2023-02-07 06:42] LABS: Leukocyte Esterase Urine Negative (Negative)
[2023-02-07 06:49] LABS: Slide Review Slide Review Perform
[2023-02-07 07:03] LABS: Bacteria Urine TRACE /hpf; Fine Granular Casts Urine 0-4 /lpf; Hyaline Casts Urine RARE /lpf; Mucus Urine TRACE /hpf
[2023-02-07 07:04] LABS: Add Urine Culture? No; Oval Fat Bodies Urine 1+ /hpf
--- NOTE | 2023-02-07 07:33 | PC.NURSE ---
Physician Communication At around 0042, patient thrashing around in bed, moving legs in an agitated manner and pulling at IVs and wires. Physically, patient remaining tachypneic with a NSR on telemetry. Dr. Harris contacted and order received for 2.5 mg zyprexa IM once and to discontinue amiodarone drip. See MAR for details. Patient's rhythm changed from NSR to a sinus bigeminy at around 0200. An ekg was performed and Dr. Harris contacted. Orders received to check a mag, phos, and bmp. At about 0400, patient's sustaining tachypnea with audible wheezes discussed with Dr. Harris; order received for a vbg. At 0416, patient's mag level reported to Dr. Harris as 1.6; order received for 2 g mag sulfate IV once. Prior to starting the mag sulfate, patient's HR increased into the 170s. EKG performed; Dr. Harris contacted again and order received for 5 mg metoprolol IVP once. See MAR for administrations.
[2023-02-07] MEDS: ipratropium-albuterol 3 mL Neb INHALATION ×4 (08:00→20:27)
[2023-02-07] MEDS: budesonide 0.5 mg/2 mL Neb INHALATION (08:00)
--- NOTE | 2023-02-07 08:00 | XR_ITS ---
WS: [id number] XR KUB portable [id number] REASON FOR EXAM: sbo? FINDINGS: The nasogastric tube is been removed. Moderate gaseous distention of the stomach and several moderately dilated central small bowel loops. Minimal colon gas. Presumed large calcified uterine fibroid/fibroids. XR/XR KUB portable [id number] IMPRESSION: Abnormal bowel gas pattern suggestive of distal small bowel obstruction.
[2023-02-07 08:17] LABS: Adenovirus Not Detected (NOT DETECT); Chlamydia Pneumoniae Not Detected (NOT DETECT); Coronavirus 229E,HKU1,NL63,OC4 Not Detected (NOT DETECT); Human Metapneumovirus Not Detected (NOT DETECT); Human Rhinovirus/Enterovirus Not Detected (NOT DETECT); Influenza A Not Detected (NOT DETECT); Influenza A H1 Not Detected (NOT DETECT); Influenza A H1-2009 Not Detected (NOT DETECT); Influenza A H3 Not Detected (NOT DETECT); Influenza B Not Detected (NOT DETECT); Mycoplasma Pneumoniae Not Detected (NOT DETECT); Parainfluenza Virus Type 1 Not Detected (NOT DETECT); Parainfluenza Virus Type 2 Not Detected (NOT DETECT); Parainfluenza Virus Type 3 Not Detected (NOT DETECT); Parainfluenza Virus Type 4 Not Detected (NOT DETECT); Respiratory Syncytial Virus A Not Detected (NOT DETECT); Respiratory Syncytial Virus B Not Detected (NOT DETECT); SARS-COV-2 Not Detected (NOT DETECT)
--- NOTE | 2023-02-07 08:31 | PC.PHAR ---
CALLED [facility]OD[facility] FOR A MED LIST AT 8:15 AM
[2023-02-07 08:35] LABS: Estmated Average Glucose 134; Hemoglobin A1C 6.3 % (4.0-6.0)
[2023-02-07 08:38] LABS: Lipase 8 U/L (13-60)
[2023-02-07 08:40] LABS: Glucose Point of Care 161 mg/dL (70-110)
[2023-02-07] MEDS: haloperidol inj 5 mg/mL INJ 1 mL 1 MG IM ×2 (09:26→23:10)
[2023-02-07] MEDS: insulin lispro 100 unit/1 mL SUBCUT ×2 (09:27→12:04)
[2023-02-07 11:09] LABS: Glucose Point of Care 166 mg/dL (70-110)
--- NOTE | 2023-02-07 13:55 | P.PN_ITS ---
Subjective Subjective: - Patient was seen this morning -She is alert to person, not to place, not to time, she does not follow commands, her speech is incoherent -She removed her NG tube, she has been pulling at her IV lines -Abdomen soft, distended, decreased bowel sounds, does have diffuse tenderness to palpation, -She has been given Haldol she is a bit more calm -She is off Levophed -She developed A-fib with RVR, was started on amiodarone, as she continued to have A-fib heart rates in the 120s, she was given amiodarone bolus -Patient had a 5-second sinus pause, heart rates have improved into the 90s, and low tone has been discontinued -Does not follow commands, no facial droop, she has spontaneous movement of bilateral upper and lower extremities difficult to do neurologic testing Vitals/I&O/Wt Last Vital Signs Temp 99.2 F 02/07/23 07:36 Pulse 80 02/07/23 13:30 Resp 19 H 02/07/23 13:30 BP 125/48 02/07/23 13:30 Pulse Ox 99 02/07/23 13:30 O2 Del Method Nasal Cannula 02/07/23 12:00 O2 Flow Rate 2 02/07/23 12:00 02/06/23 02/07/23 02/07/23 22:59 06:59 14:59 Intake Total 23.876 / 23.876 1458.433 / 1482.309 67.334 / 67.334 Output Total 275 / 275 Balance 23.876 / 23.876 1183.433 / 1207.309 67.334 / 67.334 Weight last 48 hrs Weight 49.895 kg Physical Exam Const: EXAM LIMITATIONS: altered mental status GENERAL APPEARANCE: ill appearing and frail appearing ORIENTATION/CONSCIOUSNESS: Yes awake and Yes confused; not oriented to person, not oriented to place and not oriented to time HENMT: COMMON NORMALS: normocephalic HEAD & SCALP: normocephalic Eye: COMMON NORMALS: Equal, round and reactive pupils present PUPIL: Yes Equal, round and reactive pupils present Resp: COMMON NORMALS: normal respiratory effort, No retractions, No use of accessory muscles and clear to auscultation bilaterally AUSCULTATION: clear to auscultation bilaterally Cardio: COMMON NORMALS: S1 normal heart sound present and S2 normal heart sound present RATE: tachycardic RHYTHM: abnormal rhythm irregularly irregular HEART SOUNDS: S1 normal heart sound present and S2 normal heart sound present GI: OTHER: Abdomen soft, slightly distended, diffuse decreased bowel sounds, no guarding, n o rebound, no rigidity, mild diffuse tenderness Extremity: COMMON NORMALS: no pedal edema Neuro: SENSORIUM/ORIENTATION: No oriented to person, No oriented to place and No oriented to time Urinary Catheter Management: Nelson: Cath Placed During This Visit: yes Reason for Continuing Indwelling Catheter: Accurate Measurement of Urinary Output in Critically Ill Patients Urinary Catheter Date of Insertion: 02/07/23 Urinary Catheter Time of Insertion: 00:20 Sepsis: Is patient septic: Yes Focused sepsis exam performed: Yes Focused sepsis exam: Time 8:30 AM -DP PT pulses diminished bilaterally -Capillary refill greater than 3 seconds -Does have pallor -Tachycardic heart rates in the 110s, A-fib No mottling Date exam was performed: 02/07/23 Data 02/07/23 05:23 02/07/23 05:23 Micro: Microbiology 02/06/23 23:29 Blood Culture - Preliminary Blood SPECIMEN COLLECTED 02/06/23 23:22 Blood Culture - Preliminary Blood SPECIMEN COLLECTED 02/06/23 20:20 Blood Culture - Preliminary Blood SPECIMEN COLLECTED 02/06/23 20:17 Blood Culture - Preliminary Blood SPECIMEN COLLECTED A&P Assessment and plan (1) Atrial fibrillation with rapid ventricular response: (2) Dementia: (3) UGIB (upper gastrointestinal bleed): (4) Fracture of distal end of humerus: Qualifiers: Encounter type: initial encounter Fracture alignment: nondisplaced Fracture type: closed Laterality: left (5) Sepsis: (6) NSTEMI (non-ST elevated myocardial infarction): (7) MIKEY (acute kidney injury): (8) Small bowel obstruction: (9) Aspiration pneumonia: (10) Hypoxia: (11) Lactic acidosis: (12) Septic shock: Plan Small bowel obstruction CT scan 3. ? Long segment mild diffuse small bowel distension with no obvious abrupt transition or pneumatosis. Findings suggest distal small bowel obstruction and follow-up should be obtained. Surgical consultation should also be considered. Moderate fluid-filled gastric lumen. Prior CT exam June 2017 demonstrated small-bowel obstruction with higher grade than prior exam. Gastroenteritis/ileus should also be excluded clinically. No free air or obvious drainable abscess. Bowel wall assessment is limited due to lack of contrast. 4. ? Moderate proximal colonic liquid stool and moderate-large solid rectal/sigmoid colon stool which may represent early fecal impaction. There is also probable mild stercoral proctitis. Colonic diverticulosis without diverticulitis. Plan -Keep n.p.o. -Concerns for fluid overload, hold off on fluid therapy -Serial abdominal exams -General surgery consulted -Replace NG tube Concerns for aspiration pneumonia -As patient's toxic recurrent liters -Given patient small bowel obstruction, concerns for aspiration event Plan -Continue to monitor respiratory status closely -Follow blood cultures -Respiratory viral panel -Continue Zosyn, continue vancomycin Septic shock -Currently off Levophed -Likely combination of sepsis from aspiration pneumonia, and from Cardizem -Continue to monitor Lactic acidosis, resolved A-fib with RVR -Currently off amiodarone heart rates well controlled -Hold off on an anticoagulation due to concerns for upper GI bleed Episodes of hematemesis -Hold off on anticoagulation -NG tube to be replaced -Zofran for nausea -Monitor hemoglobin Altered mental status -Does have underlying severe dementia -Likely component of septic encephalopathy -Monitor mentation neurochecks, aspiration precautions NSTEMI -Likely supply demand ischemia from sepsis as above, atrial fibrillation Distal humeral fracture, conservative management Hypoxia, continue oxygen as above History of diabetes, A1c, low-dose sliding scale Spoke to general surgery, spoke to nursing staff, Attestations Medical Necessity Statement*: Patient requires hospitalization for small bowel obstruction, concerns for aspiration pneumonia, septic shock, lactic acidosis, A-fib with RVR, hematemesis, altered mental status Coding Level of Care Code Critical Care >/= 30 minutes Critical care time (in minutes): 45 The high probability of a clinically significant, sudden or life threatening deterioration, as referenced in this documentation, required my full and direct attention, intervention and personal management. The critical care time shown is in addition to time spent performing any reported separately billable procedures and includes the following: [x] Data and vital sign review and interpretation [x ] Patient assessment, examination and intervention [x] Medication orders and management [x] Patient/Family updates as able [x] Care Coordination and Documentation. Diagnoses Atrial fibrillation with rapid ventricular response I48.91 Dementia F03.90 UGIB (upper gastrointestinal bleed) K92.2 Fracture of distal end of humerus S42.409A Encounter type: initial encounter Fracture alignment: nondisplaced Fracture type: closed Laterality: left Sepsis A41.9 NSTEMI (non-ST elevated myocardial infarction) I21.4 MIKEY (acute kidney injury) N17.9 Small bowel obstruction K56.609 Aspiration pneumonia J69.0 Hypoxia R09.02 Lactic acidosis E87.20 Septic shock A41.9; R65.21
[2023-02-07 16:52] LABS: Glucose Point of Care 127 mg/dL (70-110)
--- NOTE | 2023-02-07 17:28 | XRR_ITS ---
PROCEDURE INFORMATION: Exam: XR Chest Exam date and time: 02/07/2023 5:38 PM Age: 87 years old Clinical indication: Device placement; Ng tube TECHNIQUE: Imaging protocol: Radiologic exam of the chest. Views: 1 view. COMPARISON: CT chest abdpel [id number] 02/07/2023 2:24 AM FINDINGS: Tubes, catheters and devices: NG tube is seen with catheter in the upper left abdomen with tip directed superiorly and laterally, at the expected level of the fundus of the stomach. Lungs: Apical emphysematous change. Mild basilar atelectasis. No consolidation. Pleural spaces: No significant effusion or pneumothorax. Heart/Mediastinum: Mild cardiac prominence. Bones/joints: Visualized osseous structures show no acute abnormality. XR/XR chest 1V portable [id number] IMPRESSION: NG tube appears at the expected level of the fundus of the stomach in the left upper quadrant..
--- NOTE | 2023-02-07 19:27 | PM.CONSULT ---
Providers/Reason For Consult Consulting Physician/Specialty*: Lonnie Boyd MD general surgery Reason for Consult*: partial SBO Requesting Physician: see below Attending Physician: Herbert Dang MD History of Present Illness History of Present Illness Lissa Pete is a 87 year old female admitted a few days ago with tachy arrhythmia on amiodarone. She has had some N/V and had coffee grounds out of NG tube. She is demented but can answer questions. She pulled out her NG and another was inserted with coffee ground material output. She is on restraints. CT scan does not show transition point of possible partial SBO Review of Systems Narrative: Difficult to get because of mental status and dementia Medications/Allergies Home Medications Medication Instructions Recorded Confirmed Last Taken Type acetaminophen 325 mg tablet 650 mg PO Q4H PRN Pain 02/07/23 02/07/23 Unknown History albuterol sulfate 0.63 mg/3 mL 0.63 mg inhalation Q4H PRN 02/07/23 02/07/23 Unknown History solution for nebulization Shortness Of Breath Or Wheezing amlodipine 5 mg tablet 5 mg PO DAILY 02/07/23 02/07/23 Unknown History aspirin 81 mg tablet,delayed 81 mg PO DAILY 02/07/23 02/07/23 Unknown History release atorvastatin 10 mg tablet 10 mg PO QPM 02/07/23 02/07/23 Unknown History codeine 10 mg-guaifenesin 100 mg/5 5 ml PO Q6H PRN Cough 02/07/23 02/07/23 Unknown History mL oral liquid (Virtussin AC) docusate sodium 100 mg capsule 100 mg PO BID 02/07/23 02/07/23 Unknown History furosemide 20 mg tablet 20 mg PO DAILY 02/07/23 02/07/23 Unknown History lactulose 10 gram/15 mL oral 15 ml PO QPM 02/07/23 02/07/23 Unknown History solution losartan 25 mg tablet 25 mg PO DAILY 02/07/23 02/07/23 Unknown History magnesium hydroxide 400 mg/5 mL 30 ml PO DAILY PRN Constipation 02/07/23 02/07/23 Unknown History oral suspension (Milk of Magnesia) oxybutynin chloride 5 mg tablet 2.5 mg PO DAILY 02/07/23 02/07/23 Unknown History potassium chloride 10 mEq 10 meq PO DAILY 02/07/23 02/07/23 Unknown History tablet,extended release(part/cryst) Allergies Allergy/AdvReac Type Severity Reaction Status Date / Time No Known Allergies Allergy Verified 02/06/23 15:25 Current Medications Generic Name Dose Route Start Last Admin Trade Name Freq PRN Reason Stop Dose Admin Albuterol/Ipratropium 3 ml 02/07/23 08:00 02/07/23 15:48 Ipratropium-Albuterol 3 Ml Neb INHALATION 3 ml QID.RESPIRATORY ZURDO Administration Albuterol/Ipratropium 3 ml 02/07/23 05:16 02/07/23 05:41 Ipratropium-Albuterol 3 Ml Neb INHALATION 3 ml Q4H PRN Administration SHORTNESS OF BREATH Budesonide 0.5 mg 02/07/23 08:00 02/07/23 08:00 Budesonide 0.5 Mg/2 Ml Neb INHALATION 0.5 mg BID.RESPIRATORY ZURDO Administration Haloperidol Lactate 1 mg 02/07/23 08:58 02/07/23 09:26 Haloperidol Inj 5 Mg/Ml Inj 1 Ml IM 1 mg Q4H PRN Administration AGITATION Norepinephrine Bitartrate 4 mg 254 mls @ 0 mls/hr 02/06/23 23:15 02/06/23 23:55 / Dextrose IV 0 mcg/min .Q0M ZURDO 0 mls/hr Titration Protocol Per Protocol Piperacillin Sod/Tazobactam 50 mls @ 12.5 mls/hr 02/07/23 00:30 02/07/23 17:48 Sod 3.375 gm/ Sodium Chloride IV 12.5 mls/hr Q8H ZURDO Administration Vancomycin HCl 750 mg/ Sodium 250 mls @ 250 mls/hr 02/07/23 01:30 02/07/23 03:47 Chloride IV Infused Q36H ZURDO Infusion Amiodarone HCl 900 mg/ 518 mls @ 0 mls/hr 02/07/23 09:00 02/07/23 18:15 Dextrose/ IV Miscellaneous IV 0.5 mg/min Supplies .Q0M ZURDO 17.27 mls/hr Titration Protocol Per Protocol Insulin Human Lispro 0 unit 02/07/23 08:00 02/07/23 18:04 Insulin Lispro 100 Unit/1 Ml SUBCUT Not Given TIDWM [facility] Protocol Pantoprazole Sodium 40 mg 02/06/23 23:15 02/07/23 12:03 Pantoprazole 40 Mg Sdv IVP 40 mg Q12H ZURDO Administration PFSH Acute PFSH: Medical History Dementia Social History Smoking and tobacco status: never smoked Alcohol intake: never Substance/Drug Use: never Vitals/I&O/Wt Last Vital Signs Temp 99.2 F 02/07/23 07:36 Pulse 103 H 02/07/23 18:00 Resp 37 H 02/07/23 18:00 BP 145/45 02/07/23 17:30 Pulse Ox 93 02/07/23 18:00 O2 Del Method Nasal Cannula 02/07/23 15:49 O2 Flow Rate 2 02/07/23 15:49 02/07/23 02/07/23 02/07/23 06:59 14:59 22:59 Intake Total 1458.433 / 1482.309 117.334 / 117.334 0 / 117.334 Output Total 275 / 275 350 / 350 Balance 1183.433 / 1207.309 117.334 / 117.334 -350 / -232.666 Weight last 48 hrs Weight 110 lb Physical Exam Narrative: Patient is a well developed well nourished and in NAD and is afebrile with vitals stable and is answering questions appropriately with a normal affect and is alert and oriented x3 HEENT: normocephalic with normal external ears and nonicteric, oral mucosa moist and dentition normal for age, trachea midline with no large masses visualized Heart: RRR, no gallops murmurs or rubs, normal PMI with no thrills Lungs: normal excursions, no loud audible wheezing, no subcutaneous emphysema Abdomen: distended, no gross hepatosplenomegaly, no masses, no rigidity or rebound, no loud borborygmi Neuro: nonfocal, AIKEN, grossly normal sensation Musculoskeletal: good muscle tone, no fasciculations, normal gait Skin: pink warm and dry with no rashes or ecchymosis Vascular: good radial pulses, no ulceration, less than 2 second capillary refill in hand : deferred Urinary Catheter Management: Nelson: Cath Placed During This Visit: yes Reason for Continuing Indwelling Catheter: Accurate Measurement of Urinary Output in Critically Ill Patients Urinary Catheter Date of Insertion: 02/07/23 Urinary Catheter Time of Insertion: 00:20 Data 02/07/23 05:23 02/07/23 05:23 Micro: Microbiology 02/06/23 23:29 Blood Culture - Preliminary Blood SPECIMEN COLLECTED 02/06/23 23:22 Blood Culture - Preliminary Blood SPECIMEN COLLECTED 02/06/23 20:20 Blood Culture - Preliminary Blood SPECIMEN COLLECTED 02/06/23 20:17 Blood Culture - Preliminary Blood SPECIMEN COLLECTED A&P Assessment and plan (1) Small bowel obstruction: Patient with NG tube down with coffee ground output. On PPI and likely has tube trauma as cause of coffee grounds. Clean out from below and eventually above. Treat any infections which could led to ileus making partial SBO worse. Consider TPN to providee calories that will help bowels function better. Ambulation with assistance will help get bowels to work once patient is in better shape and can be helped and to prevent her from pulling out NG. Septal harness can be placed to prevent her from pulling out NG if she does this again. Coding Level of Care Code 47881 Diagnoses Small bowel obstruction K56.609
[2023-02-07] MEDS: acetaminophen 325 mg Tablet 650 MG PO (19:45)
[2023-02-07] MEDS: simethicone 80 mg Chew PO (19:56)
[2023-02-07 20:00] LABS: Urine Appearance Clear (CLEAR); Urine Color Yellow (Yellow); pH Urine 5 (5-7)
[2023-02-07 20:01] LABS: Add Urine Microscopic? YES; Bilirubin Urine Neg (Negative); Blood Urine 3+ (Negative); Glucose Urine UA Norm (Normal); Ketones Urine Negative (Negative); Leukocyte Esterase Urine 1+ (Negative); Nitrate Urine Negative (Negative); Protein Urine 1+ (Negative); Urobilinogen Urine 1 mg/dL (Negative); WBC Urine 25-40 /hpf (0-5)
[2023-02-07 20:03] LABS: Add Urine Culture? Yes; Amorphous Sediment Urine 1+ /hpf; Fine Granular Casts Urine 0-4 /lpf; Mucus Urine 2+ /hpf; Squamous Epithelial Cell Urine 0-4 /hpf (0-5)
[2023-02-07 20:56] LABS: Glucose Point of Care 189 mg/dL (70-110)
[2023-02-07] MEDS: mineral oil ENEMA 133 mL PR (20:57)
--- NOTE | 2023-02-07 23:11 | USCV_ITS ---
Lissa Pete Age: 87 Gender: F : 1935 Exam Date: 02/07/2023 01:24 Ordering Phys: Razia Harris MD Technologist: BOBBY [place] [facility] [place]ication: afib, BLE swelling. Patient has severe dementia, incoherent in ICU-3 BP: 148 / 70 HR: 93 Rhythm: mostly sinus rhythm with occasional Atrial flutter Technical Quality: Adequate MEASUREMENTS (Male / Female) Normal Values 2D ECHO LVOT Diameter 1.5 cm LV Ejection Fraction MOD 2C 66.9 % LV Ejection Fraction 2C AL 68.8 % LA Diameter 3.3 cm LA Width 3.5 cm LA Height 5.1 cm RA Width 2.9 cm RA Height 4.3 cm Aorta at Sinotubular Diameter 2.6 cm IVC Diameter 1.3 cm M-MODE Aortic Annulus Diameter 2.7 cm LA Ao Ratio MM 1.3 MV E Point Septal Separation 0.5 cm DOPPLER AV Peak Velocity 208.0 cm/s LVOT Peak Velocity 136.0 cm/s AV Area Cont Eq vti 1.2 cm squared AV Area Cont Eq pk 1.2 cm squared MV Area PHT 2.9 cm squared Mitral E to A Ratio 0.7 MV E' Velocity 46.5 cm/s Mitral E to MV E' Ratio 7.5 Mitral E to LV E' Lateral Ratio 5.2 Mitral E to LV E' Septal Ratio 13.6 TR Peak Velocity 317.0 cm/s TR Peak Gradient 40.2 mmHg TV Peak E Velocity 46.0 cm/s Right Atrial Pressure 5.0 mmHg Pulmonary Artery Systolic Pressu 45.2 mmHg PV Peak Velocity 123.0 cm/s RV Acceleration Time 0.1 s RV Ejection Time 0.3 s RV AcT/ET 0.3 FINDINGS Left Ventricle Left ventricle is normal in size. LV systolic function is normal with EF 55 to 60%. No regional wall motion abnormalities are seen. Grade 1 diastolic dysfunction Right Ventricle Normal in size and function Right Atrium Normal in size Left Atrium Normal in size Mitral Valve Mitral valve is thickened. Mild mitral regurgitation. Aortic Valve Aortic valve is thickened. Mild aortic stenosis with aortic valve area 1.2 cm2 and mean gradient across aortic valve of 6 mmHg. Mild aortic regurgitation. Tricuspid Valve Mild tricuspid regurgitation. RVSP is 45 to 50 mmHg. This is consistent with moderate pulmonary hypertension. Pulmonic Valve Not well visualized. Mild pulmonic regurgitation. Pericardium Normal Aorta Normal in size IVC Appears to be normal CONCLUSIONS LV systolic function is normal with EF of 55 to 60%. Grade 1 diastolic dysfunction Mild mitral regurgitation Mild aortic stenosis. Mild aortic regurgitation Mild tricuspid regurgitation Moderate pulmonary hypertension Mild pulmonic regurgitation No comparison studies are available Francisco Javier Miles MD (Electronically Signed) Final Date: 07 February 2023 09:17 S
[2023-02-08] VITALS (28 sets, daily range): BP systolic 116–186; BP diastolic 59–96; PULSE 70–162; RESP 14–31; TEMP 36.6–37.8; O2SAT 92–100
[2023-02-08] MEDS: lanolin oint 7 gm 1 APPLIC TOPICAL (00:29)
[2023-02-08] MEDS: piperacillin-tazobactam 3.375 GM in sodium chloride 0.9% (plus) 50 ML IV ×4 (00:29→23:58)
[2023-02-08 04:57] LABS: Basophils # 0.1 10^3/uL (0.0-0.1); Basophils % 0.6 %; Eosinophils # 0.2 10^3/uL (0.0-0.8); Eosinophils % 1.7 %; Hematocrit 37.2 % (37.0-47.0); Hemoglobin 11.6 g/dL (11.5-15.3); Lymphocytes % 8.3 %; Mean Corpuscular HGB Conc 31.2 g/dL (30.0-36.0); Mean Corpuscular Hemoglobin 27.8 pg (28.0-34.0); Mean Platelet Volume 11.3 fL (7.4-10.4); Monocytes # 1.4 10^3/uL (0.2-0.9); Monocytes % 11.5 %; Neutrophils # 9.22 10^3/uL (1.8-7.7); Neutrophils % 77.6 %; Nucleated Red Blood Cells % 0 %; Platelet Count 247 10^3/cmm (130-400); Red Blood Count 4.18 10^6/uL (4.1-5.3); Red Cell Distribution Width 13.2 % (12.1-15.1); White Blood Count 11.9 10^3/uL (4.0-10.0)
[2023-02-08 05:30] LABS: Alanine Aminotransferase 12 U/L (0-33); Albumin Level 2.4 g/dL (3.5-5.2); Alkaline Phosphatase 79 U/L (35-105); Blood Urea Nitrogen 35 mg/dL (8-23); C Reactive Protein 202.3 mg/L (0.0-4.9); Calcium 8.3 mg/dL (8.5-10.5); Carbon Dioxide 23 mmol/L (22-29); Chloride 102 mmol/L (98-107); Globulin 3.3 g/dL (1.3-4.6); Glucose 165 mg/dL (65-115); Lactate (Lactic Acid level) 1.3 mmol/L (0.5-2.2); Magnesium 2.3 mg/dL (1.7-2.3); Osmolality Calculated 290 mOsm/kg (285-295); Sodium 134 mmol/L (136-145); Total Bilirubin 0.9 mg/dL (0.15-1.2); Total Protein 5.7 g/dL (6.6-8.7)
[2023-02-08 05:32] LABS: Slide Review Slide Review Perform
[2023-02-08 05:36] LABS: Anion Gap 13.6 (5-19); Potassium 4.6 mmol/L (3.5-5.1)
[2023-02-08 05:37] LABS: Aspartate Amino Transferase 27 U/L (0-32)
[2023-02-08 05:53] LABS: NT Pro B Type Natriuretic Pept 1365 pg/mL (0-450)
[2023-02-08 07:29] LABS: Glucose Point of Care 144 mg/dL (70-110)
[2023-02-08] MEDS: bisacodyl 10 mg Supp PR (08:36)
[2023-02-08] MEDS: simethicone 80 mg Chew PO ×4 (08:37→20:00)
[2023-02-08] MEDS: insulin lispro 100 unit/1 mL SUBCUT ×2 (08:37→16:43)
[2023-02-08] MEDS: budesonide 0.5 mg/2 mL Neb INHALATION ×2 (09:04→20:13)
[2023-02-08] MEDS: ipratropium-albuterol 3 mL Neb INHALATION ×3 (09:04→20:13)
[2023-02-08 11:06] LABS: Glucose Point of Care 112 mg/dL (70-110)
[2023-02-08] MEDS: glycerin adult supp 1 EACH PR (11:42)
[2023-02-08] MEDS: vancomycin 750 MG in sodium chloride 0.9% 250 ML 250 MG IV (11:43)
[2023-02-08] MEDS: mineral oil 30 mL UDC NG-TUBE ×2 (11:43→18:36)
[2023-02-08] MEDS: pantoprazole 40 mg SDV IVP ×2 (11:44→23:52)
--- NOTE | 2023-02-08 14:32 | PC.NUTR ---
Recommend consideration of PPN. If medically appropriate, begin PPN @ 12 mls/hr and increase 10 mls Q8H until goal rate of 42 mls/hr is reached. Suggest including MV 10 mls/day, standard electrolytes, and fat emulsion 20 grams/200 mls with PPN. Details in RD assessment.
--- NOTE | 2023-02-08 14:41 | PM.PN ---
Subjective Subjective: - Patient was seen this morning -She remains off pressors -She remains in A-fib on amiodarone -No bowel movement reported -On examination she is much more alert and awake to person, not to place, not to time -She is able to follow some commands such as squeezing my fingers smiling for me, I tell her that she is here in the hospital, she denies any pain complaints, denies any abdominal pain, no nausea, no vomiting -No fevers overnight Vitals/I&O/Wt Last Vital Signs Temp 99.1 F 02/08/23 04:00 Pulse 91 02/08/23 12:00 Resp 31 H 02/08/23 12:00 BP 179/73 02/08/23 12:00 Pulse Ox 92 02/08/23 12:00 O2 Del Method Nasal Cannula 02/08/23 11:28 O2 Flow Rate 2 02/08/23 11:28 02/07/23 02/08/23 02/08/23 22:59 06:59 14:59 Intake Total 150 / 267.334 50 / 317.334 Output Total 350 / 350 300 / 650 Balance -200 / -82.666 -250 / -332.666 Weight last 48 hrs Weight 65.045 kg Weight 49.895 kg Physical Exam Const: COMMON NORMALS: no acute distress EXAM LIMITATIONS: altered mental status ORIENTATION/CONSCIOUSNESS: Yes awake, Yes oriented to person and Yes confused; not oriented to place and not oriented to time Eye: COMMON NORMALS: Equal, round and reactive pupils present PUPIL: Yes Equal, round and reactive pupils present Resp: COMMON NORMALS: normal respiratory effort, No retractions, No use of accessory muscles and clear to auscultation bilaterally AUSCULTATION: clear to auscultation bilaterally Cardio: COMMON NORMALS: regular rate, S1 normal heart sound present and S2 normal heart sound present RATE: regular rate RHYTHM: abnormal rhythm irregularly irregular HEART SOUNDS: S1 normal heart sound present and S2 normal heart sound present GI: OTHER: Abdomen soft, distended, decreased bowel sounds, no guarding, no rebound, no rigidity, no palpable tenderness Extremity: COMMON NORMALS: no pedal edema Neuro: SENSORIUM/ORIENTATION: Yes oriented to person, No oriented to place and No oriented to time Urinary Catheter Management: Nelson: Cath Placed During This Visit: yes Reason for Continuing Indwelling Catheter: Accurate Measurement of Urinary Output in Critically Ill Patients Urinary Catheter Date of Insertion: 02/07/23 Urinary Catheter Time of Insertion: 00:20 Data 02/08/23 04:27 02/08/23 04:27 Micro: Microbiology 02/06/23 23:29 Blood Culture - Preliminary Blood NEGATIVE TO DATE 02/06/23 23:22 Blood Culture - Preliminary Blood NEGATIVE TO DATE 02/06/23 20:20 Blood Culture - Preliminary Blood NEGATIVE TO DATE 02/06/23 20:17 Blood Culture - Preliminary Blood NEGATIVE TO DATE A&P Assessment and plan (1) Atrial fibrillation with rapid ventricular response: (2) Dementia: (3) UGIB (upper gastrointestinal bleed): (4) Fracture of distal end of humerus: Qualifiers: Encounter type: initial encounter Fracture alignment: nondisplaced Fracture type: closed Laterality: left (5) Sepsis: (6) NSTEMI (non-ST elevated myocardial infarction): (7) MIKEY (acute kidney injury): (8) Small bowel obstruction: (9) Aspiration pneumonia: (10) Hypoxia: (11) Lactic acidosis: (12) Septic shock: (13) Altered mental status: (14) Protein calorie malnutrition: (15) Physical deconditioning: Plan Altered mental status -With underlying dementia -Likely secondary to sepsis, septic encephalopathy, aspiration ammonia, bowel obstruction -We will monitor closely -Neurochecks, aspiration precautions Small bowel obstruction CT scan 3. ? Long segment mild diffuse small bowel distension with no obvious abrupt transition or pneumatosis. Findings suggest distal small bowel obstruction and follow-up should be obtained. Surgical consultation should also be considered. Moderate fluid-filled gastric lumen. Prior CT exam June 2017 demonstrated small-bowel obstruction with higher grade than prior exam. Gastroenteritis/ileus should also be excluded clinically. No free air or obvious drainable abscess. Bowel wall assessment is limited due to lack of contrast. 4. ? Moderate proximal colonic liquid stool and moderate-large solid rectal/sigmoid colon stool which may represent early fecal impaction. There is also probable mild stercoral proctitis. Colonic diverticulosis without diverticulitis. -No bowel movement as of yet, Plan -Keep n.p.o. -Concerns for fluid overload, hold off on fluid therapy -Serial abdominal exams -General surgery consulted, NG tube placed -We will start her on peripheral nutrition Concerns for aspiration pneumonia -Given patient's initial septic shock, clinical presentation -Given patient small bowel obstruction, concerns for aspiration event Plan -Continue to monitor respiratory status closely -Follow blood cultures -Respiratory viral panel -Continue Zosyn, continue vancomycin Septic shock -Currently off Levophed -Likely combination of sepsis from aspiration pneumonia, and from Cardizem -Continue to monitor Lactic acidosis, resolved A-fib with RVR -Continue amiodarone, will transition to p.o. metoprolol we will consider p.o. amiodarone -Hold off on an anticoagulation due to concerns for upper GI bleed, obtain stool studies Episodes of hematemesis -Hold off on anticoagulation -NG tube in Place -Zofran for nausea -Monitor hemoglobin -Protonix, NSTEMI -Likely supply demand ischemia from sepsis as above, atrial fibrillation -LV systolic function is normal with EF of 55 to 60%. ?Grade 1 diastolic dysfunction ?Mild mitral regurgitation ?Mild aortic stenosis.? Mild aortic regurgitation ?Mild tricuspid regurgitation ?Moderate pulmonary hypertension ?Mild pulmonic regurgitation ?No comparison studies are available Distal humeral fracture, conservative management Hypoxia, continue oxygen as above History of diabetes, A1c, low-dose sliding scale Physical deconditioning PT OT Protein calorie malnutrition,, moderate, on examination has peripheral muscle wasting, temporal muscle wasting, consulted dietary we will start on peripheral nutrition Attestations Medical Necessity Statement*: Patient requires hospitalization, due to altered mental status, small bowel obstruction, aspiration pneumonia, septic shock, lactic acidosis, A-fib with RVR, episodes of hematemesis, NSTEMI, distal humeral fracture, physical deconditioning, protein calorie malnutrition, moderate Diagnoses Atrial fibrillation with rapid ventricular response I48.91 Dementia F03.90 UGIB (upper gastrointestinal bleed) K92.2 Fracture of distal end of humerus S42.409A Encounter type: initial encounter Fracture alignment: nondisplaced Fracture type: closed Laterality: left Sepsis A41.9 NSTEMI (non-ST elevated myocardial infarction) I21.4 MIKEY (acute kidney injury) N17.9 Small bowel obstruction K56.609 Aspiration pneumonia J69.0 Hypoxia R09.02 Lactic acidosis E87.20 Septic shock A41.9; R65.21 Altered mental status R41.82 Protein calorie malnutrition E46 Physical deconditioning R53.81
[2023-02-08] MEDS: metoprolol tartrate 25 mg Tablet PO (15:11)
[2023-02-08 16:18] LABS: Glucose Point of Care 161 mg/dL (70-110)
--- NOTE | 2023-02-08 17:54 | P.PN_ITS ---
Subjective Subjective: No complaints Vitals/I&O/Wt Last Vital Signs Temp 99.6 F 02/08/23 09:15 Pulse 70 02/08/23 17:00 Resp 24 H 02/08/23 17:00 BP 165/76 02/08/23 17:00 Pulse Ox 93 02/08/23 13:00 O2 Del Method Nasal Cannula 02/08/23 11:28 O2 Flow Rate 2 02/08/23 11:28 02/08/23 02/08/23 02/08/23 06:59 14:59 22:59 Intake Total 50 / 317.334 50 / 50 Output Total 300 / 650 425 / 425 Balance -250 / -332.666 50 / 50 -425 / -375 Weight last 48 hrs Weight 143 lb 6.4 oz Physical Exam Const: COMMON NORMALS: no acute distress EXAM LIMITATIONS: altered mental s tatus ORIENTATION/CONSCIOUSNESS: Yes awake, Yes oriented to person and Yes confused; not oriented to place and not oriented to time Eye: COMMON NORMALS: Equal, round and reactive pupils present PUPIL: Yes Equal, round and reactive pupils present Resp: COMMON NORMALS: normal respiratory effort, No retractions, No use of accessory muscles and clear to auscultation bilaterally AUSCULTATION: clear to auscultation bilaterally Cardio: COMMON NORMALS: regular rate, S1 normal heart sound present and S2 normal heart sound present RATE: regular rate RHYTHM: abnormal rhythm irregularly irregular HEART SOUNDS: S1 normal heart sound present and S2 normal heart sound present GI: OTHER: Abdomen soft, distended, decreased bowel sounds, no guarding, no rebound, no rigidity, no palpable tenderness Extremity: COMMON NORMALS: no pedal edema Neuro: SENSORIUM/ORIENTATION: Yes oriented to person, No oriented to place and No oriented to time Urinary Catheter Management: Nelson: Cath Placed During This Visit: yes Reason for Continuing Indwelling Catheter: Accurate Measurement of Urinary Output in Critically Ill Patients Urinary Catheter Date of Insertion: 02/07/23 Urinary Catheter Time of Insertion: 00:20 Data 02/08/23 04:27 02/08/23 04:27 Micro: Microbiology 02/06/23 23:29 Blood Culture - Preliminary Blood NEGATIVE TO DATE 02/06/23 23:22 Blood Culture - Preliminary Blood NEGATIVE TO DATE 02/06/23 20:20 Blood Culture - Preliminary Blood NEGATIVE TO DATE 02/06/23 20:17 Blood Culture - Preliminary Blood NEGATIVE TO DATE A&P Assessment and plan (1) Small bowel obstruction: Plan Keep NG down and continue to clean GI tract out from above and below. Attestations Medical Necessity Statement*: see hospitalist note Coding Level of Care Code Acute Code for Chg Fwd Diagnoses Small bowel obstruction K56.609
[2023-02-08] MEDS: polyethylene glycol 3350 Pkt 17 gm NG-TUBE (18:36)
[2023-02-08] MEDS: haloperidol inj 5 mg/mL INJ 1 mL 1 MG IM ×2 (19:54→23:54)
[2023-02-08] MEDS: acetaminophen 325 mg Tablet 650 MG PO (19:55)
[2023-02-08 20:44] LABS: Glucose Point of Care 157 mg/dL (70-110)
[2023-02-09] VITALS (33 sets, daily range): BP systolic 97–180; BP diastolic 48–78; PULSE 69–99; RESP 17–38; TEMP 36.6–37.3; O2SAT 82–100; BMI 27.1
[2023-02-09] MEDS: ipratropium-albuterol 3 mL Neb INHALATION ×5 (02:59→19:28)
[2023-02-09 03:02] LABS: Basophils # 0.1 10^3/uL (0.0-0.1); Basophils % 0.5 %; Eosinophils # 0.4 10^3/uL (0.0-0.8); Eosinophils % 2.7 %; Hematocrit 38.3 % (37.0-47.0); Hemoglobin 11.9 g/dL (11.5-15.3); Lymphocytes # 1.3 10^3/uL (0.8-4.8); Mean Corpuscular HGB Conc 31.1 g/dL (30.0-36.0); Mean Corpuscular Hemoglobin 27.9 pg (28.0-34.0); Mean Corpuscular Volume 89.9 fl (81-99); Mean Platelet Volume 10.7 fL (7.4-10.4); Monocytes % 12.5 %; Neutrophils # 12.14 10^3/uL (1.8-7.7); Neutrophils % 75.7 %; Nucleated Red Blood Cells % 0 %; Platelet Count 285 10^3/cmm (130-400); Red Blood Count 4.26 10^6/uL (4.1-5.3); Red Cell Distribution Width 13.5 % (12.1-15.1)
[2023-02-09] MEDS: metoprolol tartrate 25 mg Tablet PO ×2 (03:05→13:07)
[2023-02-09 03:23] LABS: Alanine Aminotransferase 18 U/L (0-33); Alkaline Phosphatase 86 U/L (35-105); Anion Gap 15.1 (5-19); Aspartate Amino Transferase 37 U/L (0-32); Blood Urea Nitrogen 29 mg/dL (8-23); C Reactive Protein 162.6 mg/L (0.0-4.9); Calcium 8.6 mg/dL (8.5-10.5); Carbon Dioxide 23 mmol/L (22-29); Chloride 103 mmol/L (98-107); Globulin 3.1 g/dL (1.3-4.6); Glucose 158 mg/dL (65-115); Magnesium 2.3 mg/dL (1.7-2.3); NT Pro B Type Natriuretic Pept 624 pg/mL (0-450); Osmolality Calculated 293 mOsm/kg (285-295); Potassium 4.1 mmol/L (3.5-5.1); Procalcitonin 0.76 ng/mL (0-0.5); Sodium 137 mmol/L (136-145); Total Protein 6.1 g/dL (6.6-8.7)
[2023-02-09 07:21] LABS: Glucose Point of Care 159 mg/dL (70-110)
[2023-02-09] MEDS: budesonide 0.5 mg/2 mL Neb INHALATION ×2 (08:06→19:28)
--- NOTE | 2023-02-09 08:59 | XRR_ITS ---
PROCEDURE INFORMATION: Exam: XR Abdomen Exam date and time: 02/09/2023 9:15 AM Age: 87 years old Clinical indication: Other: Sbo; Additional info: Sbo, portable upright TECHNIQUE: Imaging protocol: Radiologic exam of the abdomen. Views: 2 Views. Upright and supine views. COMPARISON: 1. CR XR KUB portable [id number] 02/07/2023 8:[address] [place] [id number] 02/07/2023 2:24 AM 3. CR XR acute abdomen series [id number] 07/06/2017 8:29 AM FINDINGS: Tubes, catheters and devices: Enteric tube terminates in the stomach. Lungs: Bibasilar atelectasis. Gastrointestinal tract: Multiple air-filled dilated small bowel loops measuring up to 5.5 cm. Intraperitoneal space: Normal. No free air. Organs: Multiple calcified uterine fibroids. Bones/joints: Degenerative changes along the spine. XR/XR abdomen min 2V [id number] IMPRESSION: Similar degree of multiple dilated small bowel loops with interval placement of enteric tube terminating in the stomach.
[2023-02-09] MEDS: simethicone 80 mg Chew PO ×4 (09:03→21:29)
[2023-02-09] MEDS: piperacillin-tazobactam 3.375 GM in sodium chloride 0.9% (plus) 50 ML IV ×3 (09:03→23:39)
[2023-02-09] MEDS: amiodarone 200 mg Tablet PO (09:03)
[2023-02-09] MEDS: bisacodyl 10 mg Supp PR (09:03)
[2023-02-09] MEDS: insulin lispro 100 unit/1 mL SUBCUT ×2 (09:25→12:58)
[2023-02-09] MEDS: pantoprazole 40 mg SDV IVP ×2 (11:14→23:41)
[2023-02-09] MEDS: mineral oil 30 mL UDC NG-TUBE ×2 (11:15→11:26)
[2023-02-09] MEDS: polyethylene glycol 3350 Pkt 17 gm NG-TUBE (11:16)
[2023-02-09] MEDS: vancomycin 750 MG in sodium chloride 0.9% 250 ML 250 MG IV (11:17)
[2023-02-09 11:52] LABS: Glucose Point of Care 145 mg/dL (70-110)
[2023-02-09] MEDS: glycerin adult supp 1 EACH PR (12:04)
--- NOTE | 2023-02-09 12:22 | PC.SOCIAL ---
imm update Imm updated with guardian with copy of page 2 provided. Copy in chart initialed, dated and timed.
[2023-02-09 12:48] LABS: Glucose Point of Care 143 mg/dL (70-110)
--- NOTE | 2023-02-09 13:07 | PC.NURSE ---
Patient is hypertensive, BP: 181/103. Nurse alerted Dr kennedy and was ordered to give 1500 metoprolol now.
[2023-02-09 14:29] LABS: Adenovirus Not Detected (NOT DETECT); Chlamydia Pneumoniae Not Detected (NOT DETECT); Coronavirus 229E,HKU1,NL63,OC4 Not Detected (NOT DETECT); Human Metapneumovirus Not Detected (NOT DETECT); Human Rhinovirus/Enterovirus Not Detected (NOT DETECT); Influenza A Not Detected (NOT DETECT); Influenza A H1 Not Detected (NOT DETECT); Influenza A H1-2009 Not Detected (NOT DETECT); Influenza A H3 Not Detected (NOT DETECT); Influenza B Not Detected (NOT DETECT); Mycoplasma Pneumoniae Not Detected (NOT DETECT); Parainfluenza Virus Type 1 Not Detected (NOT DETECT); Parainfluenza Virus Type 2 Not Detected (NOT DETECT); Parainfluenza Virus Type 3 Not Detected (NOT DETECT); Parainfluenza Virus Type 4 Not Detected (NOT DETECT); Respiratory Syncytial Virus A Not Detected (NOT DETECT); Respiratory Syncytial Virus B Not Detected (NOT DETECT); SARS-COV-2 Not Detected (NOT DETECT)
--- NOTE | 2023-02-09 15:03 | PM.PN ---
Subjective Subjective: Patient was seen this morning she is much more alert and awake to person, not to place, not to time she can follow some commands, she did have febrile episodes throughout the night, she has no complaints, she remains in A-fib, heart rates are well controlled, normotensive, according to nursing staff, she had a small bowel movement this morning Vitals/I&O/Wt Last Vital Signs Temp 98.6 F 02/09/23 10:00 Pulse 81 02/09/23 14:00 Resp 27 H 02/09/23 14:00 BP 154/48 02/09/23 14:00 Pulse Ox 94 02/09/23 14:00 O2 Del Method Nasal Cannula 02/09/23 11:25 O2 Flow Rate 3 02/09/23 11:25 02/09/23 02/09/23 02/09/23 06:59 14:59 22:59 Intake Total 172.2 / 1042.437 50 / 50 Output Total 275 / 700 175 / 175 Balance -102.8 / 342.437 -125 / -125 Weight last 48 hrs Weight 65.045 kg Weight 65.045 kg Physical Exam Const: COMMON NORMALS: no acute distress Resp: COMMON NORMALS: normal respiratory effort, No retractions, No use of accessory muscles and clear to auscultation bilaterally AUSCULTATION: clear to auscultation bilaterally Cardio: COMMON NORMALS: regular rate, regular rhythm, S1 normal heart sound present and S2 normal heart sound present RATE: regular rate RHYTHM: regular rhythm HEART SOUNDS: S1 normal heart sound present and S2 normal heart sound present GI: COMMON NORMALS: Normal to inspection, nondistended, normoactive bowel sounds present and non-tender Extremity: COMMON NORMALS: no pedal edema Urinary Catheter Management: Nelson: Cath Placed During This Visit: yes Reason for Continuing Indwelling Catheter: Accurate Measurement of Urinary Output in Critically Ill Patients Urinary Catheter Date of Insertion: 02/07/23 Urinary Catheter Time of Insertion: 00:20 Data 02/09/23 02:22 02/09/23 02:22 Micro: Microbiology 02/07/23 19:39 Urine Culture - Preliminary Urine,Clean Catch A&P Assessment and plan (1) Atrial fibrillation with rapid ventricular response: (2) Dementia: (3) UGIB (upper gastrointestinal bleed): (4) Fracture of distal end of humerus: Qualifiers: Encounter type: initial encounter Fracture alignment: nondisplaced Fracture type: closed Laterality: left (5) Sepsis: (6) NSTEMI (non-ST elevated myocardial infarction): (7) MIKEY (acute kidney injury): (8) Small bowel obstruction: (9) Aspiration pneumonia: (10) Hypoxia: (11) Lactic acidosis: (12) Septic shock: (13) Altered mental status: (14) Protein calorie malnutrition: (15) Physical deconditioning: Plan Altered mental status, improving -With underlying dementia -Likely secondary to sepsis, septic encephalopathy, aspiration ammonia, bowel obstruction -We will monitor closely -Neurochecks, aspiration precautions Small bowel obstruction CT scan 3. ? Long segment mild diffuse small bowel distension with no obvious abrupt transition or pneumatosis. Findings suggest distal small bowel obstruction and follow-up should be obtained. Surgical consultation should also be considered. Moderate fluid-filled gastric lumen. Prior CT exam June 2017 demonstrated small-bowel obstruction with higher grade than prior exam. Gastroenteritis/ileus should also be excluded clinically. No free air or obvious drainable abscess. Bowel wall assessment is limited due to lack of contrast. 4. ? Moderate proximal colonic liquid stool and moderate-large solid rectal/sigmoid colon stool which may represent early fecal impaction. There is also probable mild stercoral proctitis. Colonic diverticulosis without diverticulitis. -Had a movement this morning Plan -Keep n.p.o., will await surgery's recommendation to advance -Concerns for fluid overload, hold off on fluid therapy -Serial abdominal exams -General surgery consulted, NG tube placed -Continue peripheral nutrition, for now we will consider weaning off if she could receive an oral diet -We will have speech therapy see her due to aspiration Concerns for aspiration pneumonia -Given patient's initial septic shock, clinical presentation -Given patient small bowel obstruction, concerns for aspiration event Plan -Continue to monitor respiratory status closely -Follow blood cultures -Respiratory viral panel -Continue Zosyn, continue vancomycin Septic shock -Currently off Levophed -Likely combination of sepsis from aspiration pneumonia, and from Cardizem -Continue to monitor Lactic acidosis, resolved A-fib with RVR -Continue p.o. amiodarone, continue p.o. metoprolol -Hold off on an anticoagulation due to concerns for upper GI bleed, obtain stool studies Episodes of hematemesis -Hold off on anticoagulation -NG tube in Place -Zofran for nausea -Monitor hemoglobin -Protonix, NSTEMI -Likely supply demand ischemia from sepsis as above, atrial fibrillation -LV systolic function is normal with EF of 55 to 60%. ?Grade 1 diastolic dysfunction ?Mild mitral regurgitation ?Mild aortic stenosis.? Mild aortic regurgitation ?Mild tricuspid regurgitation ?Moderate pulmonary hypertension ?Mild pulmonic regurgitation ?No comparison studies are available Distal humeral fracture, conservative management Hypoxia, continue oxygen as above History of diabetes, A1c, low-dose sliding scale Physical deconditioning PT OT Protein calorie malnutrition,, moderate, on examination has peripheral muscle wasting, temporal muscle wasting, consulted dietary we will start on peripheral nutrition, spoke to nursing staff, Attestations Medical Necessity Statement*: Patient requires hospitalization for bowel obstruction and altered mental status, A-fib with RVR, lactic acidosis, hematemesis, NSTEMI Diagnoses Atrial fibrillation with rapid ventricular response I48.91 Dementia F03.90 UGIB (upper gastrointestinal bleed) K92.2 Fracture of distal end of humerus S42.409A Encounter type: initial encounter Fracture alignment: nondisplaced Fracture type: closed Laterality: left Sepsis A41.9 NSTEMI (non-ST elevated myocardial infarction) I21.4 MIKEY (acute kidney injury) N17.9 Small bowel obstruction K56.609 Aspiration pneumonia J69.0 Hypoxia R09.02 Lactic acidosis E87.20 Septic shock A41.9; R65.21 Altered mental status R41.82 Protein calorie malnutrition E46 Physical deconditioning R53.81
--- NOTE | 2023-02-09 17:01 | PM.PN ---
Subjective Subjective: No complaints Vitals/I&O/Wt Last Vital Signs Temp 98.6 F 02/09/23 10:00 Pulse 83 02/09/23 16:00 Resp 17 02/09/23 16:00 BP 180/69 02/09/23 16:00 Pulse Ox 100 02/09/23 16:00 O2 Del Method Nasal Cannula 02/09/23 15:15 O2 Flow Rate 2 02/09/23 15:15 02/09/23 02/09/23 02/09/23 06:59 14:59 22:59 Intake Total 272.2 / 1142.437 50 / 50 Output Total 275 / 700 175 / 175 Balance -2.8 / 442.437 -125 / -125 Weight last 48 hrs Weight 143 lb 6.4 oz Weight 143 lb 6.4 oz Physical Exam Narrative: Patient is a well developed well nourished and in NAD and is afebrile with vitals stable and is answering questions appropriately with a normal affect and is alert and oriented x3 HEENT: normocephalic with normal external ears and nonicteric, oral mucosa moist and dentition normal for age, trachea midline with no large masses visualized Heart: RRR, no gallops murmurs or rubs, normal PMI with no thrills Lungs: normal excursions, no loud audible wheezing, no subcutaneous emphysema Abdomen: not as distended, no gross hepatosplenomegaly, no masses, no rigidity or rebound, no loud borborygmi Neuro: nonfocal, AIKEN, grossly normal sensation Musculoskeletal: good muscle tone, no fasciculations, normal gait Skin: pink warm and dry with no rashes or ecchymosis Vascular: good radial pulses, no ulceration, less than 2 second capillary refill in hand : deferred Urinary Catheter Management: Nelson: Cath Placed During This Visit: yes Reason for Continuing Indwelling Catheter: Accurate Measurement of Urinary Output in Critically Ill Patients Urinary Catheter Date of Insertion: 02/07/23 Urinary Catheter Time of Insertion: 00:20 Data 02/09/23 02:22 02/09/23 02:22 Micro: Microbiology 02/07/23 19:39 Urine Culture - Preliminary Urine,Clean Catch A&P Assessment and plan (1) Small bowel obstruction: Patient on AXR showing significant SB dilation. Will keep NG down. Consider TPN to help patient recover and bowel function to recover. Attestations Medical Necessity Statement*: see hospitalist note Coding Level of Care Code Acute Code for Chg Fwd Diagnoses Small bowel obstruction K56.609
[2023-02-09 17:15] LABS: Glucose Point of Care 142 mg/dL (70-110)
--- NOTE | 2023-02-09 17:56 | XRR_ITS ---
PROCEDURE INFORMATION: Exam: XR Abdomen Exam date and time: 02/09/2023 6:04 PM Age: 87 years old Clinical indication: Constipation; Additional info: Bowel obstruction TECHNIQUE: Imaging protocol: Radiologic exam of the abdomen. Views: Frontal supine view of the abdomen. 1 View. COMPARISON: CR (ABDOMEN, ) 02/09/2023 9:15 AM FINDINGS: Gastrointestinal tract: Dilated loops of small bowel up to 4.9 cm in diameter consistent with obstruction versus ileus versus enteritis. Organs: Multiple large calcified uterine fibroids. Bones/joints: Unremarkable. XR/XR KUB portable [id number] IMPRESSION: 1. Multiple large calcified uterine fibroids. 2. Dilated loops of small bowel up to 4.9 cm in diameter consistent with obstruction versus ileus versus enteritis.
--- NOTE | 2023-02-09 19:16 | PC.NURSE ---
Late note.... TPN infiltrated. Nurse aspirated site, elevated Arm, applied warm compress, alerted pharmacy and was advised that no antidote is available and that it is a low strength TPN being received so it likely will not be an issue. Nurse alerted Dr kennedy. Ordered to discontinue TPN, will continue to monitor site.
--- NOTE | 2023-02-09 19:17 | PC.NURSE ---
Uneventful shift. Patient rested in bed throughout the day, has been in controlled AFIB. REstraints have been required in the past, but were not necessary today, concealing the lines was sufficient. Patient has had multiple IVs infiltrate, obtaining and maintaining IV access has been difficult, probably due to loose skin. One small bowel movement this morning.
[2023-02-09 21:15] LABS: Glucose Point of Care 142 mg/dL (70-110)
[2023-02-09 21:52] LABS: Glucose Point of Care 167 mg/dL (70-110)
[2023-02-10] VITALS (26 sets, daily range): BP systolic 94–167; BP diastolic 47–85; PULSE 71–133; RESP 16–30; TEMP 37–37.5; O2SAT 88–100; BMI 27.1
--- NOTE | 2023-02-10 | PC.NURSE ---
TPN Upon assessment of patient at beginning of shift, TPN noted to be paused. Pharmacy contacted to verify concentration of TPN. Dr. Harris contacted and order received to hold order.
--- NOTE | 2023-02-10 00:59 | XRR_ITS ---
PROCEDURE INFORMATION: Exam: XR Chest Exam date and time: 02/10/2023 1:03 AM Age: 87 years old Clinical indication: Shortness of breath; Patient HX: Sudden onset of hypoxia. ; Additional info: Oxygen desaturation TECHNIQUE: Imaging protocol: Radiologic exam of the chest. Views: 1 view. COMPARISON: CR (CHEST, ) 02/07/2023 5:38 PM FINDINGS: Lungs: Calcified left hilar nodes and/or mediastinal nodes and/or lung granulomas consistent with old granulomatous disease. Mild right perihilar and right basilar pneumonia. Pleural spaces: Unremarkable. No pleural effusion. No pneumothorax. Heart/Mediastinum: Unremarkable. No cardiomegaly. Vasculature: Calcification of the thoracic aorta and/or great vessels consistent with atherosclerotic vessel disease. Bones/joints: Mild thoracic spondylosis. XR/XR chest 1V portable [id number] IMPRESSION: Mild right perihilar and right basilar pneumonia.
--- NOTE | 2023-02-10 01:31 | PC.NURSE ---
NT suction Upon beginning of shift, Patient noted to have a loose, moist, nonproductive, persistent cough. While coughing, patient's oxygen saturation decreases intermittently into the low 80s and breathing is labored. Patient unable to expectorate, but sputum noted in the back of throat. Dr. Harris contacted and order received to NT suction as needed. At approximately 0045, patient's oxygen saturation decreased, this time into the 70s, while coughing. NT suctioning performed. Thick red sputum removed. Dr. Harris contacted and order received for chest xray.
[2023-02-10] MEDS: metoprolol tartrate 25 mg Tablet PO ×3 (02:30→17:34)
--- NOTE | 2023-02-10 04:21 | PC.NURSE ---
Nystatin Dr. Harris notified of red, moist, excoriated rash in patient's groin folds. Order received for nystatin.
[2023-02-10 04:50] LABS: Basophils # 0.1 10^3/uL (0.0-0.1); Basophils % 0.5 %; Eosinophils # 0.6 10^3/uL (0.0-0.8); Hematocrit 36.6 % (37.0-47.0); Hemoglobin 10.9 g/dL (11.5-15.3); Lymphocytes # 1.3 10^3/uL (0.8-4.8); Lymphocytes % 6.7 %; Mean Corpuscular HGB Conc 29.8 g/dL (30.0-36.0); Mean Corpuscular Hemoglobin 27.6 pg (28.0-34.0); Mean Corpuscular Volume 92.7 fl (81-99); Mean Platelet Volume 10.9 fL (7.4-10.4); Monocytes # 2.3 10^3/uL (0.2-0.9); Monocytes % 12.1 %; Nucleated Red Blood Cells % 0 %; Platelet Count 269 10^3/cmm (130-400); Red Blood Count 3.95 10^6/uL (4.1-5.3); Red Cell Distribution Width 13.6 % (12.1-15.1); White Blood Count 18.6 10^3/uL (4.0-10.0)
[2023-02-10 05:15] LABS: NT Pro B Type Natriuretic Pept 1045 pg/mL (0-450); Procalcitonin 0.35 ng/mL (0-0.5)
[2023-02-10 05:17] LABS: Alanine Aminotransferase 19 U/L (0-33); Albumin Level 2.6 g/dL (3.5-5.2); Alkaline Phosphatase 80 U/L (35-105); Aspartate Amino Transferase 38 U/L (0-32); Blood Urea Nitrogen 21 mg/dL (8-23); C Reactive Protein 90.3 mg/L (0.0-4.9); Calcium 8.3 mg/dL (8.5-10.5); Carbon Dioxide 21 mmol/L (22-29); Chloride 102 mmol/L (98-107); Globulin 3.3 g/dL (1.3-4.6); Glucose 136 mg/dL (65-115); Magnesium 2.2 mg/dL (1.7-2.3); NT Pro B Type Natriuretic Pept 1025 pg/mL (0-450); Osmolality Calculated 281 mOsm/kg (285-295); Sodium 133 mmol/L (136-145); Total Bilirubin 1.1 mg/dL (0.15-1.2); Total Protein 5.9 g/dL (6.6-8.7)
[2023-02-10 05:20] LABS: Anion Gap 14.2 (5-19); Potassium 4.2 mmol/L (3.5-5.1)
[2023-02-10] MEDS: ipratropium-albuterol 3 mL Neb INHALATION ×4 (08:00→20:10)
[2023-02-10] MEDS: budesonide 0.5 mg/2 mL Neb INHALATION (08:00)
[2023-02-10 08:28] LABS: Glucose Point of Care 137 mg/dL (70-110)
[2023-02-10] MEDS: amiodarone 200 mg Tablet PO (08:36)
[2023-02-10] MEDS: simethicone 80 mg Chew 160 MG PO ×4 (08:37→22:08)
[2023-02-10] MEDS: piperacillin-tazobactam 3.375 GM in sodium chloride 0.9% (plus) 50 ML IV ×2 (08:58→17:20)
[2023-02-10] MEDS: glycerin adult supp 1 EACH PR (08:59)
[2023-02-10] MEDS: bisacodyl 10 mg Supp PR (08:59)
[2023-02-10] MEDS: nystatin powder 15 gm Btl 1 APPLIC TOPICAL ×2 (09:09→17:34)
[2023-02-10 11:01] LABS: Vancomycin Trough < 4.0 ug/mL (10-15)
--- NOTE | 2023-02-10 12:10 | PM.PN ---
Subjective Subjective: Patient is alert and talking now Vitals/I&O/Wt Last Vital Signs Temp 99.5 F 02/10/23 09:00 Pulse 91 02/10/23 11:10 Resp 22 H 02/10/23 11:00 BP 127/55 02/10/23 10:00 Pulse Ox 95 02/10/23 11:00 O2 Del Method Nasal Cannula 02/10/23 11:00 O2 Flow Rate 2 02/10/23 11:00 02/09/23 02/10/23 02/10/23 22:59 06:59 14:59 Intake Total 480.630 / 530.630 50 / 580.630 Output Total 275 / 450 250 / 700 75 / 75 Balance 205.630 / 80.630 -200 / -119.370 -75 / -75 Weight last 48 hrs Weight 143 lb 9.6 oz Weight 143 lb 6.4 oz Physical Exam Narrative: Patient is a well developed well nourished and in NAD and is afebrile with vitals stable and is answering questions appropriately with a normal affect and is alert and oriented x3 HEENT: normocephalic with normal external ears and nonicteric, oral mucosa moist and dentition normal for age, trachea midline with no large masses visualized Heart: RRR, no gallops murmurs or rubs, normal PMI with no thrills Lungs: normal excursions, no loud audible wheezing, no subcutaneous emphysema Abdomen: not as distended, no gross hepatosplenomegaly, no masses, no rigidity or rebound, no loud borborygmi Neuro: nonfocal, AIKEN, grossly normal sensation Musculoskeletal: good muscle tone, no fasciculations, normal gait Skin: pink warm and dry with no rashes or ecchymosis Vascular: good radial pulses, no ulceration, less than 2 second capillary refill in hand : deferred Urinary Catheter Management: Nelson: Cath Placed During This Visit: yes Reason for Continuing Indwelling Catheter: Accurate Measurement of Urinary Output in Critically Ill Patients Urinary Catheter Date of Insertion: 02/07/23 Urinary Catheter Time of Insertion: 00:20 Data 02/10/23 03:29 02/10/23 03:29 Micro: Microbiology 02/07/23 19:39 Urine Culture - Final Urine,Clean Catch A&P Assessment and plan (1) Small bowel obstruction: Although abdomen is less distended she still has a signficant amount of air in small bowel on xray. With her general clinical situation improving I would expect bowel function to return as well. If eating or tube feedings are started too soon and aggressively she may aspirate causing a pneumonia leading to and ileus and worsening of her GI function. I will place her NG off suction to gravity drainage trying to force more fluid downstream. I feel if less than 200 cc comes out NG in a 24 hours period then consider clamping NG for 24 hours then removing it. If over 800 cc comes out in 24 period then consider placing back on LIS. If at any time you feel patient needs tube feedings than post pyloric tube feedings would be better to prevent vomiting and aspiration with residuals check. I feel there would be less chance of aspiration with NG tube out and patient on clear liquid or full liquid diet. She is awake now and her gag reflex should prevent aspiration. If she gets sicker and not alert again she is at higher risk of aspiration with feedings of any kind. Attestations Medical Necessity Statement*: see hospitalist note Coding Level of Care Code Acute Code for Chg Fwd Diagnoses Small bowel obstruction K56.609
[2023-02-10] MEDS: pantoprazole 40 mg SDV IVP ×2 (12:18→22:08)
[2023-02-10] MEDS: vancomycin 750 MG in sodium chloride 0.9% 250 ML 250 MG IV (12:19)
[2023-02-10 12:57] LABS: Glucose Point of Care 132 mg/dL (70-110)
--- NOTE | 2023-02-10 14:21 | XRR_ITS ---
PROCEDURE INFORMATION: Exam: XR Chest Exam date and time: 02/10/2023 2:29 PM Age: 87 years old Clinical indication: Device placement; Picc; Additional info: Picc line confirmation TECHNIQUE: Imaging protocol: Radiologic exam of the chest. Views: 1 view. COMPARISON: CR (CHEST, ) 02/10/2023 1:03 AM FINDINGS: Tubes, catheters and devices: Right PICC line tip is in the right atrium. The nasogastric tube is appropriately positioned with the tip in the stomach, well beyond the diaphragmatic hiatus. Lungs: Patchy ill-defined opacity in the right mid to lower lung is stable. Pleural spaces: There is no pleural effusion or pneumothorax. Heart/Mediastinum: Cardiomediastinal contours are unremarkable. Bones/joints: Bones are unremarkable. Gastrointestinal tract: Dilated gas-filled small bowel is visible in the upper abdomen. XR/XR chest 1V portable [id number] IMPRESSION: 1. PICC line tip is in the right atrium. 2. NG tube tip is in the stomach well beyond diaphragmatic hiatus. 3. Stable mild nonspecific opacity in the right mid to lower lung. 4. Small bowel dilation in the upper abdomen.
--- NOTE | 2023-02-10 14:56 | PC.NURSE ---
Addendum entered by Kell Espitia RN 02/10/23 16:02: Per radiologist: PICC tip remains in R atrium following 1cm retraction. Retracted PICC to 3cm exposed and performed sterile dressing change per protocol. Reported to primary nurse Fidel SAUER. Addendum entered by Kell Espitia RN 02/10/23 15:18: Per radiologist: PICC tip in R atrium. Primary nurse reported verbal order from Dr. Dang to retract PICC 1cm and recheck x-ray. Retracted PICC 1cm and performed sterile dressing change per protocol; new biopatch and securement device applied. New X-ray obtained; pending radiologist review. Reported to primary nurse, Fidel SAUER. Original Note: PICC Insertion Consulted by house charge for PICC insertion for IV abx, TPN and poor venous access. Upon arrival to room, discussed procedure with patient and primary nurse. Written consent already obtained by nursing staff and verified in bedside chart. LUE limb alert. Assessed RUE using US guidance and determined cephalic vein best target for cannulation, due to size and lack of evidence of thrombus or stenosis. Using US guidance, MST and sterile technique, accessed vein x1 stick. Advanced device without resistance. Positive blood return. Flushed easily. Device secured. EBL <5mL. Obtained chest X-Ray and visualized PICC tip in SVC; pending radiologist review. Patient tolerated well. Reported off to primary nurse, Fidel SAUER.
--- NOTE | 2023-02-10 14:59 | PM.PN ---
Subjective Subjective: - Patient was examined this morning -Nursing staff tell me that she did have a very minimal bowel movement overnight, but not significant to collect -No nausea, no vomiting -Afebrile overnight -This morning she is alert to person, not to place, not to time she is able to smile for me follow commands, no significant NG tube output -Abdomen soft, slightly distended, has bowel sounds present in all 4 quadrants although diminished -She is on 2 L -She was reexamined in the afternoon she is working with physical therapy she was gotten up to a chair - Vitals/I&O/Wt Last Vital Signs Temp 98.9 F 02/10/23 14:00 Pulse 96 02/10/23 14:00 Resp 21 H 02/10/23 14:00 BP 110/85 02/10/23 14:00 Pulse Ox 100 02/10/23 14:00 O2 Del Method Nasal Cannula 02/10/23 14:00 O2 Flow Rate 2 02/10/23 14:00 02/09/23 02/10/23 02/10/23 22:59 06:59 14:59 Intake Total 480.630 / 530.630 50 / 580.630 Output Total 275 / 450 250 / 700 175 / 175 Balance 205.630 / 80.630 -200 / -119.370 -175 / -175 Weight last 48 hrs Weight 63.957 kg Weight 65.136 kg Weight 65.045 kg Physical Exam Const: COMMON NORMALS: no acute distress OTHER: Nasogastric tube in place Resp: COMMON NORMALS: normal respiratory effort, No retractions, No use of accessory muscles and clear to auscultation bilaterally AUSCULTATION: clear to auscultation bilaterally Cardio: COMMON NORMALS: regular rate, regular rhythm, S1 normal heart sound present and S2 normal heart sound present RATE: regular rate RHYTHM: regular rhythm HEART SOUNDS: S1 normal heart sound present and S2 normal heart sound present GI: OTHER: Abdomen soft, slightly distended, bowel sounds present in all 4 quadrants although diminished no guarding, no rebound, no rigidity, no diffuse tenderness Extremity: COMMON NORMALS: no pedal edema Urinary Catheter Management: Nelson: Cath Placed During This Visit: yes Reason for Continuing Indwelling Catheter: Accurate Measurement of Urinary Output in Critically Ill Patients Urinary Catheter Date of Insertion: 02/07/23 Urinary Catheter Time of Insertion: 00:20 Data 02/10/23 03:29 07/09/23 03:29 Micro: Microbiology 02/07/23 19:39 Urine Culture - Final Urine,Clean Catch A&P Assessment and plan (1) Atrial fibrillation with rapid ventricular response: (2) Dementia: (3) UGIB (upper gastrointestinal bleed): (4) Fracture of distal end of humerus: Qualifiers: Encounter type: initial encounter Fracture alignment: nondisplaced Fracture type: closed Laterality: left (5) Sepsis: (6) NSTEMI (non-ST elevated myocardial infarction): (7) MIKEY (acute kidney injury): (8) Small bowel obstruction: (9) Aspiration pneumonia: (10) Hypoxia: (11) Lactic acidosis: (12) Septic shock: (13) Altered mental status: (14) Protein calorie malnutrition: (15) Physical deconditioning: Plan Altered mental status, improving -With underlying dementia -Likely secondary to sepsis, septic encephalopathy, aspiration ammonia, bowel obstruction -We will monitor closely -Neurochecks, aspiration precautions Small bowel obstruction CT scan 3. ? Long segment mild diffuse small bowel distension with no obvious abrupt transition or pneumatosis. Findings suggest distal small bowel obstruction and follow-up should be obtained. Surgical consultation should also be considered. Moderate fluid-filled gastric lumen. Prior CT exam June 2017 demonstrated small-bowel obstruction with higher grade than prior exam. Gastroenteritis/ileus should also be excluded clinically. No free air or obvious drainable abscess. Bowel wall assessment is limited due to lack of contrast. 4. ? Moderate proximal colonic liquid stool and moderate-large solid rectal/sigmoid colon stool which may represent early fecal impaction. There is also probable mild stercoral proctitis. Colonic diverticulosis without diverticulitis. -Had 1 small bowel movement Saturday morning Plan -Currently n.p.o. -Concerns for fluid overload, hold off on fluid therapy -Serial abdominal exams -General surgery consulted -NG tube in place 200 cc output -As she remains n.p.o. for the fourth day, concerns for high risk of aspiration with TPN, I would resume peripheral nutrition through PICC line, given her evidence of protein calorie malnutrition -We will have speech therapy see her due to aspiration, once were able to resume p.o. feeds Aspiration pneumonia -Given patient's initial septic shock, clinical presentation -Given patient small bowel obstruction, concerns for aspiration event -Seen on chest x-ray Mild right perihilar and right basilar pneumonia. -Her white blood cell count continues to elevate, possible recurrent aspiration? Plan -Continue to monitor respiratory status closely -Follow blood cultures -Keep n.p.o., aspiration precautions -Continue Zosyn, continue vancomycin Septic shock -Currently off Levophed -Likely combination of sepsis from aspiration pneumonia, and from Cardizem -Continue to monitor Lactic acidosis, resolved A-fib with RVR -Continue p.o. amiodarone, continue p.o. metoprolol -Hold off on an anticoagulation due to concerns for upper GI bleed, obtain stool studies Episodes of hematemesis -Hold off on anticoagulation -NG tube in Place -Zofran for nausea -Monitor hemoglobin -Protonix, NSTEMI -Likely supply demand ischemia from sepsis as above, atrial fibrillation -LV systolic function is normal with EF of 55 to 60%. ?Grade 1 diastolic dysfunction ?Mild mitral regurgitation ?Mild aortic stenosis.? Mild aortic regurgitation ?Mild tricuspid regurgitation ?Moderate pulmonary hypertension ?Mild pulmonic regurgitation ?No comparison studies are available Distal humeral fracture, conservative management Hypoxia, continue oxygen as above History of diabetes, A1c, low-dose sliding scale Physical deconditioning PT OT Protein calorie malnutrition,, moderate, on examination has peripheral muscle wasting, temporal muscle wasting, consulted dietary we will start on peripheral nutrition today through PICC line, spoke to nursing staff, Plan for today continue antibiotic treatments, Place PICC line start peripheral nutrition, up out of bed, to a chair, monitor for bowel movement Attestations Medical Necessity Statement*: Patient requires hospitalization due to aspiration pneumonia, small bowel obstruction Diagnoses Atrial fibrillation with rapid ventricular response I48.91 Dementia F03.90 UGIB (upper gastrointestinal bleed) K92.2 Fracture of distal end of humerus S42.409A Encounter type: initial encounter Fracture alignment: nondisplaced Fracture type: closed Laterality: left Sepsis A41.9 NSTEMI (non-ST elevated myocardial infarction) I21.4 MIKEY (acute kidney injury) N17.9 Small bowel obstruction K56.609 Aspiration pneumonia J69.0 Hypoxia R09.02 Lactic acidosis E87.20 Septic shock A41.9; R65.21 Altered mental status R41.82 Protein calorie malnutrition E46 Physical deconditioning R53.81
--- NOTE | 2023-02-10 15:02 | XRR_ITS ---
PROCEDURE INFORMATION: Exam: XR Chest Exam date and time: 02/10/2023 3:13 PM Age: 87 years old Clinical indication: Device placement; Picc; Additional info: Picc line verifaction - repositioned after initial xray TECHNIQUE: Imaging protocol: Radiologic exam of the chest. Views: 1 view. COMPARISON: CR (CHEST, ) 02/10/2023 2:29 PM FINDINGS: Tubes, catheters and devices: Enteric tube terminates in the stomach. Right PICC line terminates in the proximal right atrium. Lungs: No consolidation. Pleural spaces: No pleural effusion. No pneumothorax. Heart/Mediastinum: Stable heart size. Bones/joints: Visualized osseous structures are intact. XR/XR chest 1V portable [id number] IMPRESSION: Right PICC line terminates in the proximal right atrium.
--- NOTE | 2023-02-10 16:28 | PC.NURSE ---
450mL of Milk and molasses enema administered. Patient dwelled for about 30 minutes. Patient had a large bowel movement. Nurse is unsure of exact volume due to large liquid amount spilling over chucks and saturating bed, however there were multiple large formed pieces of stool mixed in with liquid which is presumed to be the milk and molassess.
--- NOTE | 2023-02-10 16:58 | PC.NUTR ---
Consult for malnutrition received. With PICC line placement today, recommend consideration of TPN. If medically appropriate, begin TPN @ 12 mls/hr and increase 10 mls Q8H until goal rate of 42 mls/hr is reached. Suggest including MV 10 mls/day, standard electrolytes, and fat emulsion 20 grams/[address] assessment.
[2023-02-10 17:58] LABS: Glucose Point of Care 150 mg/dL (70-110)
[2023-02-10] MEDS: insulin lispro 100 unit/1 mL SUBCUT (17:59)
--- NOTE | 2023-02-10 18:14 | PC.NURSE ---
SHift SUmmary: Patient was up to the chair for about 4 hours today. REquires 2 person assist and is very weak and has trouble following instructions. Patient has had a picc line placed and TPN restarted. Near end of shift, patient went back into AFIB with RVR, rate as high as 140's. Physician ordered PO metprolol and it has started to reduce heart rate at the time of this note. Total urine output has been 375mL, and patient has had one large bowel movement consisting of milk and molasses enema contents and large pieces of formed stool.
--- NOTE | 2023-02-10 21:24 | PC.NURSE ---
Received patient from ICU at this time. Patient has NG to gravity presently. TPN at 12ml/hr to right upper arm PICC. Patient is pleasant. Nelson in place.
[2023-02-10 21:29] LABS: Glucose Point of Care 133 mg/dL (70-110)
[2023-02-10] MEDS: metoprolol tartrate 1 mg/1 mL SDV 5 mL 5 MG IVP (22:08)
--- NOTE | 2023-02-10 22:28 | XRR_ITS ---
PROCEDURE INFORMATION: Exam: XR Chest Exam date and time: 02/10/2023 10:39 PM Age: 87 years old Clinical indication: Device placement; Picc; Additional info: Verifiy picc placement after adjustment TECHNIQUE: Imaging protocol: Radiologic exam of the chest. Views: 1 view. COMPARISON: CR (CHEST, ) 02/10/2023 3:13 PM FINDINGS: Tubes, catheters and devices: Stable positioning enteric tube. Interval retraction of the right PICC line now terminating in the SVC. Lungs: No significant interval change. Pleural spaces: No pleural effusion. No pneumothorax. Heart/Mediastinum: No significant change. Bones/joints: No significant interval change. XR/XR chest 1V portable [id number] IMPRESSION: Interval retraction of the right PICC line noted terminating in the SVC.
[2023-02-11] VITALS (15 sets, daily range): BP systolic 112–167; BP diastolic 56–78; PULSE 62–125; RESP 16–28; TEMP 36.8–37.6; O2SAT 81–100
[2023-02-11] MEDS: vancomycin 750 MG in sodium chloride 0.9% 250 ML 250 MG IV ×2 (00:17→12:03)
[2023-02-11] MEDS: piperacillin-tazobactam 3.375 GM in sodium chloride 0.9% (plus) 50 ML IV ×4 (00:17→23:38)
[2023-02-11 02:45] LABS: Basophils # 0.1 10^3/uL (0.0-0.1); Basophils % 0.5 %; Eosinophils # 0.5 10^3/uL (0.0-0.8); Eosinophils % 2.7 %; Hematocrit 34.2 % (37.0-47.0); Hemoglobin 10.7 g/dL (11.5-15.3); Lymphocytes # 1.7 10^3/uL (0.8-4.8); Mean Corpuscular HGB Conc 31.3 g/dL (30.0-36.0); Mean Corpuscular Hemoglobin 28.2 pg (28.0-34.0); Mean Corpuscular Volume 90.2 fl (81-99); Mean Platelet Volume 10.7 fL (7.4-10.4); Monocytes % 15.4 %; Neutrophils # 12.84 10^3/uL (1.8-7.7); Nucleated Red Blood Cells % 0 %; Platelet Count 350 10^3/cmm (130-400); Red Blood Count 3.79 10^6/uL (4.1-5.3); Red Cell Distribution Width 13.7 % (12.1-15.1); White Blood Count 19.2 10^3/uL (4.0-10.0)
[2023-02-11 03:04] LABS: Slide Review Slide Review Perform
[2023-02-11 03:08] LABS: Alanine Aminotransferase 19 U/L (0-33); Albumin Level 2.8 g/dL (3.5-5.2); Alkaline Phosphatase 86 U/L (35-105); Anion Gap 14.1 (5-19); Aspartate Amino Transferase 33 U/L (0-32); Blood Urea Nitrogen 19 mg/dL (8-23); Calcium 8.6 mg/dL (8.5-10.5); Carbon Dioxide 25 mmol/L (22-29); Chloride 105 mmol/L (98-107); Glucose 151 mg/dL (65-115); Magnesium 2.1 mg/dL (1.7-2.3); Osmolality Calculated 295 mOsm/kg (285-295); Potassium 4.1 mmol/L (3.5-5.1); Sodium 140 mmol/L (136-145); Total Bilirubin 0.9 mg/dL (0.15-1.2); Total Protein 5.8 g/dL (6.6-8.7)
[2023-02-11 03:14] LABS: C Reactive Protein 54.9 mg/L (0.0-4.9)
[2023-02-11 03:21] LABS: NT Pro B Type Natriuretic Pept 1276 pg/mL (0-450); Procalcitonin 0.25 ng/mL (0-0.5)
[2023-02-11] MEDS: metoprolol tartrate 25 mg Tablet PO (05:33)
[2023-02-11 06:46] LABS: Glucose Point of Care 160 mg/dL (70-110)
--- NOTE | 2023-02-11 07:00 | XR_ITS ---
WS: [id number] XR abdomen min 2V [id number] REASON FOR EXAM: sbo FINDINGS: No free air. Multiple gas-filled dilated loops of small bowel in the central abdomen. There is increased dilatation of the small bowel compared to 02/09/2023. Nasogastric tube in place overlying the fundus of the stomach. XR/XR abdomen min 2V [id number] IMPRESSION: Distal small bowel obstruction as above.
[2023-02-11] MEDS: insulin lispro 100 unit/1 mL SUBCUT ×3 (07:25→17:56)
[2023-02-11] MEDS: ipratropium-albuterol 3 mL Neb INHALATION ×4 (07:52→22:04)
[2023-02-11] MEDS: budesonide 0.5 mg/2 mL Neb INHALATION ×2 (07:52→22:03)
[2023-02-11] MEDS: amiodarone 200 mg Tablet PO (09:48)
[2023-02-11] MEDS: bisacodyl 10 mg Supp PR (09:48)
[2023-02-11] MEDS: mineral oil 30 mL UDC NG-TUBE (09:48)
[2023-02-11] MEDS: glycerin adult supp 1 EACH PR (09:48)
[2023-02-11] MEDS: polyethylene glycol 3350 Pkt 17 gm NG-TUBE (09:49)
[2023-02-11] MEDS: potassium phosphate (mEq K) 20 MEQ in sodium chloride 0.9% (100 ml) 104.5454 ML 27.25 MEQ IV (09:49)
[2023-02-11] MEDS: simethicone 80 mg Chew 160 MG PO ×2 (09:50→20:35)
--- NOTE | 2023-02-11 09:56 | XRR_ITS ---
PROCEDURE INFORMATION: Exam: XR Left Shoulder Exam date and time: 02/11/2023 10:18 AM Age: 87 years old Clinical indication: Pain; Shoulder; Left TECHNIQUE: Imaging protocol: Radiologic exam of the left shoulder. Views: 2 or more views. COMPARISON: 1. CR XR shoulder LT min 2V* [id number] 05/09/2022 7:06 PM 2[place] [id number] 02/06/2023 4:04 PM 3[place] [id number] 05/09/2022 7:08 PM FINDINGS: Bones/joints: Diffusely demineralized bones. No acute fracture or dislocation. Mild degenerative changes. Soft tissues: Normal. XR/XR shoulder LT min 2V* [id number] IMPRESSION: No acute findings.
--- NOTE | 2023-02-11 09:57 | XRR_ITS ---
PROCEDURE INFORMATION: Exam: XR Left Forearm Exam date and time: 02/11/2023 10:30 AM Age: 87 years old Clinical indication: Pain; Lower or forearm; Left TECHNIQUE: Imaging protocol: Radiologic exam of the left forearm. Views: 2 views. COMPARISON: 1. CR (UP EXM, ) 02/05/2023 6:02 PM 2. CR (UP EXM, ) 02/05/2023 5:57 PM 3. CR XR elbow LT min 3V* [id number] 02/11/2023 10:27 AM FINDINGS: Bones/joints: Diffusely decreased bony mineralization. Displaced distal humeral fracture. Joints are maintained. Soft tissues: Regional soft tissue swelling. XR/XR forearm LT 2V [id number] IMPRESSION: Known displaced distal humerus fracture.
--- NOTE | 2023-02-11 09:57 | XRR_ITS ---
PROCEDURE INFORMATION: Exam: XR Left Humerus Exam date and time: 02/11/2023 10:23 AM Age: 87 years old Clinical indication: Pain; Upper arm; Left TECHNIQUE: Imaging protocol: Radiologic exam of the left humerus. Views: 2 or more views. COMPARISON: 1[place] [id number] 02/06/2023 4:04 PM 2[place] [id number] 05/09/2022 7:08 PM 3. CR XR shoulder LT min 2V* [id number] 02/11/2023 10:18 AM FINDINGS: Bones/joints: Diffusely decreased bony mineralization. Mildly displaced distal humeral fracture similar to mildly increased displacement. Shoulder degenerative changes. Soft tissues: Normal. XR/XR humerus LT IMPRESSION: Mildly displaced left distal humerus fracture.
--- NOTE | 2023-02-11 09:57 | XRR_ITS ---
PROCEDURE INFORMATION: Exam: XR Left Elbow Exam date and time: 02/11/2023 10:27 AM Age: 87 years old Clinical indication: Pain; Elbow; Left TECHNIQUE: Imaging protocol: Radiologic exam of the left elbow. Views: 3 or more views. COMPARISON: 1. CR XR elbow LT min 3V* [id number] 02/06/2023 4:05 PM 2[place] [id number] 02/11/2023 10:23 AM FINDINGS: Bones/joints: Diffusely decreased bony mineralization. Appearance of mildly increased displacement of known transverse distal humerus fracture with mild foreshortening and ulnar displacement of the distal fragment. Radiocapitellar joint appears overlapped on frontal views but appropriately position on lateral view. Soft tissues: Surrounding soft tissue swelling. XR/XR elbow LT min 3V* [id number] IMPRESSION: Possible mildly increased displacement of transverse humeral fracture versus differences in positioning.
[2023-02-11] MEDS: FUROsemide 10 mg/mL SDV 2mL 20 MG IVP (10:50)
--- NOTE | 2023-02-11 11:18 | PC.SOCIAL ---
IMM Update pg 2 of IMM updated and reviewed w/ patient's guardian Luciano Batista, copy left @ bedside and Copy in chart dated and initialed.
[2023-02-11 11:32] LABS: Glucose Point of Care 148 mg/dL (70-110)
[2023-02-11] MEDS: pantoprazole 40 mg SDV IVP ×2 (12:02→23:38)
--- NOTE | 2023-02-11 13:09 | PM.PN ---
Subjective Subjective: Patient passing gas and having bowel movements. Pain controlled Vitals/I&O/Wt Last Vital Signs Temp 99.5 F 02/11/23 08:00 Pulse 81 02/11/23 11:33 Resp 22 H 02/11/23 11:33 BP 140/56 02/11/23 08:00 Pulse Ox 92 02/11/23 11:33 O2 Del Method Room Air 02/11/23 11:33 O2 Flow Rate 2 02/11/23 11:19 02/10/23 02/11/23 02/11/23 22:59 06:59 14:59 Intake Total 600 / 600 2518.4 / 3118.4 120 / 120 Output Total 900 / 1075 250 / 1325 750 / 750 Balance -300 / -475 2268.4 / 1793.4 -630 / -630 Weight last 48 hrs Weight 141 lb Weight 143 lb 9.6 oz Physical Exam Narrative: General: No acute distress, oriented to person only Abdomen: Soft, nontender, mild distention, no guarding rebound or masses Urinary Catheter Management: Nelson: Cath Placed During This Visit: yes Reason for Continuing Indwelling Catheter: Acute Urinary Retention or Obstruction Urinary Catheter Date of Insertion: 02/07/23 Urinary Catheter Time of Insertion: 00:20 Data 02/11/23 01:57 02/11/23 01:57 Micro: Microbiology 02/10/23 09:14 MRSA Culture - Final Nose 02/07/23 19:39 Urine Culture - Final Urine,Clean Catch A&P Assessment and plan (1) Small bowel obstruction: (2) Aspiration pneumonia: (3) Physical deconditioning: (4) Protein calorie malnutrition: Plan NG tube was removed Swallow eval by speech was failed Recommend Dobbhoff with tube feeding versus PEG tube. Continue TPN Medical management per hospitalist Attestations Medical Necessity Statement*: Per primary Coding Level of Care Code Acute Code for Chg Fwd Diagnoses Small bowel obstruction K56.609 Aspiration pneumonia J69.0 Physical deconditioning R53.81 Protein calorie malnutrition E46
[2023-02-11 17:16] LABS: Glucose Point of Care 178 mg/dL (70-110)
--- NOTE | 2023-02-11 17:42 | PM.PN ---
Subjective Subjective: - Patient was seen this morning -Nursing staff at bedside -She is alert to person, not to place, not to time, she does follow some commands such as squeezing my fingers smiling for me -She did get up into a chair with physical therapy yesterday -She continues to be a high aspiration risk, speech therapy work with her, continues to have high aspiration as she does not have the mentation to swallow, given her elevated white count I believe that she likely is continuing to aspirate microaspiration -Spoke to general surgery, she has been n.p.o. for the last 5 days, given reported, infiltration and deconditioning, she has a high risk of further worsening, recommend some sort of feeding given her aspiration, Dobbhoff would be the best option to decrease risk of aspiration and allow for feeding, allow her to gain weight have speech therapy to work with her and see how she does -Patient is awarded guardianship of the [facility], spoke to Luciano Valdez -Discussed patient's current hospitalization for A-fib with RVR which is improving, her ICU mission for septic shock secondary to aspiration pneumonia, she overall is improving but she continues to aspirate given elevated white count I think is likely due to her respiratory contents, her obstruction, she has had a bowel movement, but in terms of feeding she has a high risk of aspiration due to poor mentation, we need some sort of feeding as she continues to lose muscle mass, she is a high risk of morbidity mortality without feeding, discussed options available to her she is DNR/DNI she is 87 options that included were hospice versus Dobbhoff tube to allow to feed her, allow her to gain weight, avoid muscle mass loss, to have speech therapy work with her to continue physical therapy, although there is no significant movement of her quality of life, and there still was a risk of aspiration, this would allow us to at least feed her, give give her time for physical therapy, speech therapy, to see if she were to regain swallowing function some of her lack of mentation might be due to persistent hospitalization, ICU syndrome, possibly metabolic, found to have aspiration pneumonia but will have to monitor mentation -After discussing the risk and benefits of all options, he voiced understanding, all all questions answered, agreed to proceed with Dobbhoff placement -Spoke to general surgery, will consider placement on Saturday Vitals/I&O/Wt Last Vital Signs Temp 99.0 F 02/11/23 16:00 Pulse 89 02/11/23 16:00 Resp 28 H 02/11/23 16:00 BP 138/74 02/11/23 16:00 Pulse Ox 83 L 02/11/23 16:00 O2 Del Method Nasal Cannula 02/11/23 16:00 O2 Flow Rate 1 02/11/23 16:00 02/11/23 02/11/23 02/11/23 06:59 14:59 22:59 Intake Total 2518.4 / 3118.4 529.0909 / 529.0909 Output Total 250 / 1325 750 / 750 Balance 2268.4 / 1793.4 -220.9091 / -220.9091 Weight last 48 hrs Weight 63.957 kg Weight 65.136 kg Physical Exam Const: COMMON NORMALS: no acute distress ORIENTATION/CONSCIOUSNESS: Yes awake and Yes oriented to person; not oriented to place and not oriented to time Resp: COMMON NORMALS: normal respiratory effort, No retractions, No use of accessory muscles and clear to auscultation bilaterally AUSCULTATION: clear to auscultation bilaterally Cardio: COMMON NORMALS: regular rate, regular rhythm, S1 normal heart sound present and S2 normal heart sound present RATE: regular rate RHYTHM: regular rhythm HEART SOUNDS: S1 normal heart sound present and S2 normal heart sound present GI: COMMON NORMALS: Normal to inspection, nondistended, normoactive bowel sounds present and non-tender Extremity: COMMON NORMALS: no pedal edema Neuro: SENSORIUM/ORIENTATION: Yes oriented to person, No oriented to place and No oriented to time Urinary Catheter Management: Nelson: Cath Placed During This Visit: yes Reason for Continuing Indwelling Catheter: Acute Urinary Retention or Obstruction Urinary Catheter Date of Insertion: 02/07/23 Urinary Catheter Time of Insertion: 00:20 Data 02/11/23 01:57 02/11/23 01:57 Micro: Microbiology 02/10/23 09:14 MRSA Culture - Final Nose A&P Assessment and plan (1) Atrial fibrillation with rapid ventricular response: (2) Dementia: (3) UGIB (upper gastrointestinal bleed): (4) Fracture of distal end of humerus: Qualifiers: Encounter type: initial encounter Fracture alignment: nondisplaced Fracture type: closed Laterality: left (5) Sepsis: (6) NSTEMI (non-ST elevated myocardial infarction): (7) MIKEY (acute kidney injury): (8) Small bowel obstruction: (9) Aspiration pneumonia: (10) Hypoxia: (11) Lactic acidosis: (12) Septic shock: (13) Altered mental status: (14) Protein calorie malnutrition: (15) Physical deconditioning: (16) Recurrent aspiration events: (17) Aspiration pneumonitis: Plan Altered mental status, improving -Persistent confusion could be due to underlying dementia, could be ICU syndrome, persistent encephalopathy due to metabolic, aspiration pneumonia -With underlying dementia -We will monitor closely -Neurochecks, aspiration precautions Small bowel obstruction CT scan 3. ? Long segment mild diffuse small bowel distension with no obvious abrupt transition or pneumatosis. Findings suggest distal small bowel obstruction and follow-up should be obtained. Surgical consultation should also be considered. Moderate fluid-filled gastric lumen. Prior CT exam June 2017 demonstrated small-bowel obstruction with higher grade than prior exam. Gastroenteritis/ileus should also be excluded clinically. No free air or obvious drainable abscess. Bowel wall assessment is limited due to lack of contrast. 4. ? Moderate proximal colonic liquid stool and moderate-large solid rectal/sigmoid colon stool which may represent early fecal impaction. There is also probable mild stercoral proctitis. Colonic diverticulosis without diverticulitis. -Has had 1 bowel movement Plan -Currently n.p.o. due to high aspiration risk -Concerns for fluid overload, hold off on fluid therapy -Serial abdominal exams -General surgery consulted -NG tube removed -Plans on Dobbhoff placement for nutrition -Continue speech therapy eval -Currently on on peripheral neutral and Aspiration pneumonia -Continues to have evidence of aspiration pneumonitis, aspiration pneumonia due to elevated white count -Given patient's initial septic shock, clinical presentation -Given patient small bowel obstruction, concerns for aspiration event -Seen on chest x-ray Mild right perihilar and right basilar pneumonia. -Her white blood cell count continues to elevate, Plan -Continue to monitor respiratory status closely -Follow blood cultures -Keep n.p.o., aspiration precautions -Continue Zosyn Septic shock -Currently off Levophed -Likely combination of sepsis from aspiration pneumonia, and from Cardizem -Continue to monitor Lactic acidosis, resolved A-fib with RVR -Continue p.o. amiodarone, continue p.o. metoprolol -Hold off on an anticoagulation due to concerns for upper GI bleed, obtain stool studies Episodes of hematemesis -Hold off on anticoagulation -NG tube in Place -Zofran for nausea -Monitor hemoglobin -Protonix, NSTEMI -Likely supply demand ischemia from sepsis as above, atrial fibrillation -LV systolic function is normal with EF of 55 to 60%. ?Grade 1 diastolic dysfunction ?Mild mitral regurgitation ?Mild aortic stenosis.? Mild aortic regurgitation ?Mild tricuspid regurgitation ?Moderate pulmonary hypertension ?Mild pulmonic regurgitation ?No comparison studies are available Distal humeral fracture, conservative management Hypoxia, continue oxygen as above History of diabetes, A1c, low-dose sliding scale Physical deconditioning PT OT Protein calorie malnutrition,, moderate, on examination has peripheral muscle wasting, temporal muscle wasting PICC line placed, for peripheral nutrition Plan for today continue antibiotic treatments, peripheral nutrition, spoke to general surgery, spoke to patient's guardianship of the [facility], spoke to nursing staff, Attestations Medical Necessity Statement*: Patient requires hospital for recurrent aspiration pneumonia, aspiration pneumonitis, bowel obstruction, poor nutrition, encephalopathy Diagnoses Atrial fibrillation with rapid ventricular response I48.91 Dementia F03.90 UGIB (upper gastrointestinal bleed) K92.2 Fracture of distal end of humerus S42.409A Encounter type: initial encounter Fracture alignment: nondisplaced Fracture type: closed Laterality: left Sepsis A41.9 NSTEMI (non-ST elevated myocardial infarction) I21.4 MIKEY (acute kidney injury) N17.9 Small bowel obstruction K56.609 Aspiration pneumonia J69.0 Hypoxia R09.02 Lactic acidosis E87.20 Septic shock A41.9; R65.21 Altered mental status R41.82 Protein calorie malnutrition E46 Physical deconditioning R53.81 Recurrent aspiration events Aspiration pneumonitis J69.0
[2023-02-11] MEDS: OLANZapine 5 mg TABLET PO (20:35)
[2023-02-11 21:13] LABS: Glucose Point of Care 205 mg/dL (70-110)
[2023-02-12] VITALS (14 sets, daily range): BP systolic 129–162; BP diastolic 59–83; PULSE 74–106; RESP 17–29; TEMP 37.2–38.1; O2SAT 93–99; BMI 27.0
[2023-02-12 00:08] LABS: Vancomycin Trough 10.5 ug/mL (10-15)
--- NOTE | 2023-02-12 01:13 | PC.NURSE ---
Patient up to chair this night. Patient refusing to return to bed when offered. Denies pain. Performed bedside swallow evaluation. Patient able to swallow small bites of applesauce with medication and sip from straw with minimal distress observed. Will continue to monitor.
[2023-02-12] MEDS: morphine 4 mg/mL SDV 1 mL 1 MG IVP ×2 (03:53→19:08)
[2023-02-12 05:35] LABS: Hematocrit 37.6 % (37.0-47.0); Hemoglobin 11.2 g/dL (11.5-15.3); Mean Corpuscular HGB Conc 29.8 g/dL (30.0-36.0); Mean Corpuscular Hemoglobin 27.4 pg (28.0-34.0); Mean Corpuscular Volume 91.9 fl (81-99); Mean Platelet Volume 10.8 fL (7.4-10.4); Platelet Count 342 10^3/cmm (130-400); Red Blood Count 4.09 10^6/uL (4.1-5.3); Red Cell Distribution Width 13.6 % (12.1-15.1); White Blood Count 24.2 10^3/uL (4.0-10.0)
[2023-02-12 06:19] LABS: Absolute Eosinophils 1.2 10^3/cmm (0.0-0.7); Absolute Segmented Neutrophil 16.2 10/cmm (1.6-7.1); Eosinophils 5 %; Lymphocytes 9 %; Monocytes Absolute 2.4 10^3/cmm (0.1-0.6); Segmented Neutrophils 67 %; Slide Review Slide Review Perform; Total Cells Counted 100 (0-100)
[2023-02-12 06:20] LABS: Platelet Estimate Normal (Normal)
[2023-02-12 06:25] LABS: Alanine Aminotransferase 31 U/L (0-33); Albumin Level 2.9 g/dL (3.5-5.2); Alkaline Phosphatase 81 U/L (35-105); Anion Gap 16.1 (5-19); Aspartate Amino Transferase 74 U/L (0-32); Blood Urea Nitrogen 21 mg/dL (8-23); Calcium 8.7 mg/dL (8.5-10.5); Carbon Dioxide 24 mmol/L (22-29); Chloride 103 mmol/L (98-107); Globulin 3.3 g/dL (1.3-4.6); Glucose 185 mg/dL (65-115); Magnesium 2.2 mg/dL (1.7-2.3); Osmolality Calculated 296 mOsm/kg (285-295); Potassium 4.1 mmol/L (3.5-5.1); Sodium 139 mmol/L (136-145); Total Bilirubin 1.1 mg/dL (0.15-1.2); Total Protein 6.2 g/dL (6.6-8.7)
[2023-02-12 06:26] LABS: NT Pro B Type Natriuretic Pept 403 pg/mL (0-450); Procalcitonin 0.18 ng/mL (0-0.5)
[2023-02-12 06:29] LABS: C Reactive Protein 39.4 mg/L (0.0-4.9)
[2023-02-12 06:43] LABS: Glucose Point of Care 196 mg/dL (70-110)
[2023-02-12] MEDS: ipratropium-albuterol 3 mL Neb INHALATION ×4 (08:00→19:42)
[2023-02-12] MEDS: budesonide 0.5 mg/2 mL Neb INHALATION ×2 (08:00→19:42)
--- NOTE | 2023-02-12 08:00 | XRR_ITS ---
PROCEDURE INFORMATION: Exam: XR Chest Exam date and time: 02/12/2023 8:18 AM Age: 87 years old Clinical indication: Shortness of breath; Additional info: SOB TECHNIQUE: Imaging protocol: Radiologic exam of the chest. Views: 1 view. COMPARISON: CR (CHEST, ) 02/10/2023 10:39 PM FINDINGS: Tubes, catheters and devices: Right-sided PICC line tip in place. Lungs: Chronic changes in the lower lobes. Pleural spaces: Unremarkable. No pleural effusion. No pneumothorax. Heart/Mediastinum: Unremarkable. No cardiomegaly. Bones/joints: Unremarkable. XR/XR chest 1V portable [id number] IMPRESSION: Chronic changes in the lung bases. No acute process
--- NOTE | 2023-02-12 09:12 | PC.CHAP ---
Pastoral Care Encounter/Spiritual Assessment Type of Contact [] Declined window shade ring coverer visit [] Patient/Family/Request visit [] Outpatient visit [] Follow-up visit [] Physician referral [] Code/Alert [] Routine visit [] Staff referral [] Actively dying [x] Patient sleeping [] Family support [] [] Out of room [] Palliative care [] [] Receiving care in room [] Pre-surgical visit [] Trauma [] Long length of stay [] ICU visit [] Other: Relational/Emotional Strength [] Patient feels connected with others/family/visitors/staff [] Distress [] Loneliness/isolation [] Abandonment Spirituality of Patient [] Person of Yanira [] Attends Yazidi of their Yanira [] Believes in Prayer [] Reads Bible or Buddhism materials [] There are Spiritual issues to be addressed Agronomy Professor Interventions [] Prayer [] Active listening [] Non-anxious presence [] Spiritual/emotional support [] Crisis/trauma care [] Spiritual counseling [] Bereavement support [] Provided bereavement packet [] Provided Bible/devotional materials [] Provided toy/stuffed animal, coloring book to patient or family member [] Provided Communion [] Anointing/[place] [] Salvation [] Completed spiritual assessment [] Other: Impact on Illness or Injury [] Angry [] Fearful [] Anxious [] Often cries [] Exhaustion [] Unable to work [] Unable to attend yazdanism [] Unable to walk/stand [] Unable to read [] Unable to drive [] Unable to eat/drink [] Unable to sleep [] Unable to be with family [] Patient intubated [] Other: Summary Time spent with patient
--- NOTE | 2023-02-12 09:53 | PC.SLP ---
Patient was not seen due to alertness level. Continue NPO diet until PEG tube is placed.
[2023-02-12] MEDS: pantoprazole 40 mg SDV IVP ×2 (10:44→21:20)
[2023-02-12] MEDS: insulin lispro 100 unit/1 mL SUBCUT ×3 (10:44→18:36)
[2023-02-12] MEDS: vancomycin 750 MG in sodium chloride 0.9% 250 ML 250 MG IV ×2 (10:45→21:09)
[2023-02-12] MEDS: nystatin powder 15 gm Btl 1 APPLIC TOPICAL ×2 (10:47→18:36)
[2023-02-12] MEDS: bisacodyl 10 mg Supp PR (10:47)
[2023-02-12] MEDS: glycerin adult supp 1 EACH PR (10:47)
[2023-02-12 11:33] LABS: Glucose Point of Care 201 mg/dL (70-110)
--- NOTE | 2023-02-12 11:53 | PC.OT ---
TREATMENT ATTEMPTED AT 11:00. NURSING REPORTS THAT PT RECEIVED SUPPOSITORIES AND NEEDS TO REMAIN STILL. WILL REATTEMPT LATER.
[2023-02-12] MEDS: meropenem 1,000 MG in sodium chloride 0.9% (plus) 50 ML 100 MG IV ×3 (12:52→23:48)
[2023-02-12] MEDS: magnesium sulfate premix 2 GM/50 ML PIGGYBACK IV (15:26)
--- NOTE | 2023-02-12 15:52 | PC.OT ---
OT TREATMENT ATTEMPTED. AT THIS TIME, NURSING REQUESTS OT TREATMENT BE WITHHELD D/T INCIDENT OF SOB EARLIER TODAY. OT TREATMENT TO BE REATTEMPTED TOMORROW.
[2023-02-12 17:29] LABS: Glucose Point of Care 182 mg/dL (70-110)
--- NOTE | 2023-02-12 18:51 | P.PN_ITS ---
Subjective Subjective: - Patient was seen early this morning, she is alert to person, not to place, not to time she follows commands such as squeezing my fingers smiling for for me, s she has no complaints, -I was urgently paged by nursing staff early in the afternoon, as patient was in mild respiratory distress with wheezing -Upon examination, patient's airways were tight, she was not moving air, on 4 L her O2 sats were in the high 80s, in acute respiratory distress with tachypnea, tachycardia nursing staff at bedside, it sounded as if she was having a bronchospasm as she was not moving air, she was sitting up in chair she was back into bed -She was given a nebulizer treatment, given 2 g of mag -Reexamined thereafter, her airways open equal breath sounds bilaterally, alert and awake -She is reexamined early in the evening, she is alert awake, follows commands such as smiling, I asked her how she is doing she tells me she is doing okay, equal sounds bilaterally, does not look like she is in respiratory distress, resting comfortably Vitals/I&O/Wt Last Vital Signs Temp 98.9 F 02/12/23 18:10 Pulse 92 02/12/23 18:10 Resp 23 H 02/12/23 18:10 BP 162/80 02/12/23 18:10 Pulse Ox 98 02/12/23 18:10 O2 Del Method Nasal Cannula 02/12/23 15:03 O2 Flow Rate 3 02/12/23 15:03 02/12/23 02/12/23 02/12/23 06:59 14:59 22:59 Intake Total 300 / 1508.2579 400 / 400 100 / 500 Output Total 100 / 850 Balance 200 / 658.2579 400 / 400 100 / 500 Weight last 48 hrs Weight 64.818 kg Weight 64.818 kg Physical Exam Const: COMMON NORMALS: no acute distress Resp: COMMON NORMALS: normal respiratory effort, No retractions, No use of accessory muscles and clear to auscultation bilaterally AUSCULTATION: clear to auscultation bilaterally Cardio: COMMON NORMALS: regular rate, regular rhythm, S1 normal heart sound present and S2 normal heart sound present RATE: regular rate RHYTHM: regular rhythm HEART SOUNDS: S1 normal heart sound present and S2 normal heart sound present GI: COMMON NORMALS: Normal to inspection, nondistended, normoactive bowel sounds present and non-tender Extremity: COMMON NORMALS: no pedal edema Psych: COMMON NORMALS: mental status grossly normal Urinary Catheter Management: Nelson: Cath Placed During This Visit: yes Reason for Continuing Indwelling Catheter: Other Urinary Catheter Date of Insertion: 02/07/23 Urinary Catheter Time of Insertion: 00:20 Data 02/12/23 04:46 02/12/23 04:46 Micro: Microbiology 02/12/23 09:12 Blood Culture - Preliminary Blood SPECIMEN COLLECTED 02/12/23 09:04 Blood Culture - Preliminary Blood SPECIMEN COLLECTED 02/06/23 23:29 Blood Culture - Final Blood NO GROWTH AFTER 5 DAYS 02/06/23 23:22 Blood Culture - Final Blood NO GROWTH AFTER 5 DAYS 02/06/23 20:20 Blood Culture - Final Blood NO GROWTH AFTER 5 DAYS 02/06/23 20:17 Blood Culture - Final Blood NO GROWTH AFTER 5 DAYS A&P Assessment and plan (1) Atrial fibrillation with rapid ventricular response: (2) Dementia: (3) UGIB (upper gastrointestinal bleed): (4) Fracture of distal end of humerus: Qualifiers: Encounter type: initial encounter Fracture alignment: nondisplaced Fracture type: closed Laterality: left (5) Sepsis: (6) NSTEMI (non-ST elevated myocardial infarction): (7) MIKEY (acute kidney injury): (8) Small bowel obstruction: (9) Aspiration pneumonia: (10) Hypoxia: (11) Lactic acidosis: (12) Septic shock: (13) Altered mental status: (14) Protein calorie malnutrition: (15) Physical deconditioning: (16) Recurrent aspiration events: (17) Aspiration pneumonitis: (18) Acute respiratory distress: (19) Bronchospasm: Plan Acute respiratory distress, likely secondary to bronchospasm -Improved with nebulizers, 2 g of mag -Continue DuoNebs as needed, respiratory therapy eval, monitor respiratory status closely -Currently resting comfortably, equal breath sounds bilaterally, no nasal flaring, no intercostal retractions, no tachypnea, on 3 L Altered mental status, improving -Persistent confusion could be due to underlying dementia, could be ICU syndrome, persistent encephalopathy due to metabolic, aspiration pneumonia -With underlying dementia -We will monitor closely -Neurochecks, aspiration precautions Small bowel obstruction CT scan 3. ? Long segment mild diffuse small bowel distension with no obvious abrupt transition or pneumatosis. Findings suggest distal small bowel obstruction and follow-up should be obtained. Surgical consultation should also be considered. Moderate fluid-filled gastric lumen. Prior CT exam June 2017 demonstrated small-bowel obstruction with higher grade than prior exam. Gastroenteritis/ileus should also be excluded clinically. No free air or obvious drainable abscess. Bowel wall assessment is limited due to lack of contrast. 4. ? Moderate proximal colonic liquid stool and moderate-large solid rectal/sigmoid colon stool which may represent early fecal impaction. There is also probable mild stercoral proctitis. Colonic diverticulosis without diverticulitis. -Has had 1 bowel movement Plan -Currently n.p.o. due to high aspiration risk -Concerns for fluid overload, hold off on fluid therapy -Serial abdominal exams -General surgery consulted -NG tube removed -Plans on Dobbhoff placement for nutrition -Continue speech therapy eval -Currently on on peripheral neutral and Aspiration pneumonia, continues to have leukocytosis -Continues to have evidence of aspiration pneumonitis, aspiration pneumonia due to elevated white count -Given patient's initial septic shock, clinical presentation -Given patient small bowel obstruction, concerns for aspiration event -Seen on chest x-ray Mild right perihilar and right basilar pneumonia. -Her white blood cell count continues to elevate, currently 24,000 CRP 39.4 Pro- Tate 0.18 Plan -Continue to monitor respiratory status closely -Follow blood cultures -Keep n.p.o., aspiration precautions -Broaden antibiotic coverage to Primaxin, vancomycin -Repeat blood cultures pending Septic shock -Currently off Levophed -Likely combination of sepsis from aspiration pneumonia, and from Cardizem -Continue to monitor Lactic acidosis, resolved A-fib with RVR -Continue p.o. amiodarone, continue p.o. metoprolol -Hold off on an anticoagulation due to concerns for upper GI bleed, obtain stool studies Episodes of hematemesis -Hold off on anticoagulation -NG tube in Place -Zofran for nausea -Monitor hemoglobin -Protonix, NSTEMI -Likely supply demand ischemia from sepsis as above, atrial fibrillation -LV systolic function is normal with EF of 55 to 60%. ?Grade 1 diastolic dysfunction ?Mild mitral regurgitation ?Mild aortic stenosis.? Mild aortic regurgitation ?Mild tricuspid regurgitation ?Moderate pulmonary hypertension ?Mild pulmonic regurgitation ?No comparison studies are available Distal humeral fracture, conservative management Hypoxia, continue oxygen as above History of diabetes, A1c, low-dose sliding scale Physical deconditioning PT OT Protein calorie malnutrition,, moderate, on examination has peripheral muscle wasting, temporal muscle wasting PICC line placed, for peripheral nutrition Plan for today continue antibiotic treatments, monitor mentation continue peripheral nutrition, continue DuoNeb treatments, monitor respiratory status closely, she will have PEG tube placement tomorrow Attestations Medical Necessity Statement*: Patient requires hospitalization, for bronchospasm, respiratory distress, presents leukocytosis aspiration pneumonia, bowel obstruction, proceeding with PEG tube placement Diagnoses Atrial fibrillation with rapid ventricular response I48.91 Dementia F03.90 UGIB (upper gastrointestinal bleed) K92.2 Fracture of distal end of humerus S42.409A Encounter type: initial encounter Fracture alignment: nondisplaced Fracture type: closed Laterality: left Sepsis A41.9 NSTEMI (non-ST elevated myocardial infarction) I21.4 MIKEY (acute kidney injury) N17.9 Small bowel obstruction K56.609 Aspiration pneumonia J69.0 Hypoxia R09.02 Lactic acidosis E87.20 Septic shock A41.9; R65.21 Altered mental status R41.82 Protein calorie malnutrition E46 Physical deconditioning R53.81 Recurrent aspiration events Aspiration pneumonitis J69.0 Acute respiratory distress R06.03 Bronchospasm J98.01
[2023-02-12 20:23] LABS: Add Urine Microscopic? YES; Bilirubin Urine 1+ (Negative); Blood Urine 3+ (Negative); Glucose Urine UA 2+ (Normal); Ketones Urine 1+ (Negative); Leukocyte Esterase Urine Negative (Negative); Nitrate Urine Negative (Negative); Protein Urine 1+ (Negative); Specific Gravity, Urine 1.025 (1.005-1.030); Urine Appearance Hazy (CLEAR); Urine Color Yellow (Yellow); Urobilinogen Urine 1 mg/dL (Negative); pH Urine 5 (5-7)
[2023-02-12 20:24] LABS: Add Urine Culture? Yes; Bacteria Urine 1+ /hpf; Hyaline Casts Urine 0-4 /lpf; Mucus Urine 3+ /hpf; Squamous Epithelial Cell Urine 0-4 /hpf (0-5); Transitional Epi Cells Urine 0-4 /hpf; WBC Urine 0-4 /hpf (0-5)
[2023-02-12 22:05] LABS: Glucose Point of Care 141 mg/dL (70-110)
[2023-02-13] VITALS (19 sets, daily range): BP systolic 102–160; BP diastolic 57–96; PULSE 60–129; RESP 16–28; TEMP 36.2–37.6; O2SAT 90–98; BMI 26.5
[2023-02-13] MEDS: morphine 4 mg/mL SDV 1 mL 1 MG IVP ×3 (00:37→13:04)
[2023-02-13 04:37] LABS: Basophils # 0.2 10^3/uL (0.0-0.1); Basophils % 0.7 %; Eosinophils # 1.1 10^3/uL (0.0-0.8); Eosinophils % 4.3 %; Hematocrit 34.3 % (37.0-47.0); Hemoglobin 10.4 g/dL (11.5-15.3); Lymphocytes # 2.7 10^3/uL (0.8-4.8); Lymphocytes % 10.7 %; Mean Corpuscular HGB Conc 30.3 g/dL (30.0-36.0); Mean Corpuscular Hemoglobin 27.8 pg (28.0-34.0); Mean Corpuscular Volume 91.7 fl (81-99); Mean Platelet Volume 10.7 fL (7.4-10.4); Monocytes # 2.9 10^3/uL (0.2-0.9); Monocytes % 11.2 %; Neutrophils # 16.97 10^3/uL (1.8-7.7); Neutrophils % 66.2 %; Nucleated Red Blood Cells % 0 %; Platelet Count 270 10^3/cmm (130-400); Red Blood Count 3.74 10^6/uL (4.1-5.3); Red Cell Distribution Width 13.8 % (12.1-15.1); White Blood Count 25.6 10^3/uL (4.0-10.0)
[2023-02-13 05:01] LABS: Alanine Aminotransferase 26 U/L (0-33); Albumin Level 2.7 g/dL (3.5-5.2); Alkaline Phosphatase 87 U/L (35-105); Anion Gap 12.1 (5-19); Aspartate Amino Transferase 50 U/L (0-32); Blood Urea Nitrogen 20 mg/dL (8-23); Calcium 8.5 mg/dL (8.5-10.5); Carbon Dioxide 28 mmol/L (22-29); Chloride 105 mmol/L (98-107); Glucose 150 mg/dL (65-115); Magnesium 2.5 mg/dL (1.7-2.3); Osmolality Calculated 297 mOsm/kg (285-295); Potassium 4.1 mmol/L (3.5-5.1); Sodium 141 mmol/L (136-145); Total Protein 5.7 g/dL (6.6-8.7)
[2023-02-13 05:22] LABS: Slide Review Slide Review Perform
--- NOTE | 2023-02-13 06:14 | PM.PN ---
Vitals/I&O/Wt Last Vital Signs Temp 98.1 F 02/13/23 04:00 Pulse 82 02/13/23 04:54 Resp 19 H 02/13/23 04:00 BP 146/85 02/13/23 04:00 Pulse Ox 95 02/13/23 04:00 O2 Del Method Nasal Cannula 02/13/23 04:00 O2 Flow Rate 3 02/12/23 19:42 02/12/23 02/12/23 02/13/23 14:59 22:59 06:59 Intake Total 400 / 400 1302.6 / 1702.6 150 / 1852.6 Output Total 200 / 200 200 / 400 Balance 400 / 400 1102.6 / 1502.6 -50 / 1452.6 Weight last 48 hrs Weight 140 lb 9.6 oz Weight 142 lb 14.4 oz Weight 142 lb 14.4 oz Physical Exam Urinary Catheter Management: Nelson: Cath Placed During This Visit: yes Reason for Continuing Indwelling Catheter: Acute Urinary Retention or Obstruction Urinary Catheter Date of Insertion: 02/07/23 Urinary Catheter Time of Insertion: 00:20 Data 02/13/23 03:04 02/13/23 03:04 Micro: Microbiology 02/12/23 09:12 Blood Culture - Preliminary Blood SPECIMEN COLLECTED 02/12/23 09:04 Blood Culture - Preliminary Blood SPECIMEN COLLECTED A&P Assessment and plan (1) Aspiration pneumonitis: Plan PEG tube placement today The risks and benefits of the procedure, including bleeding, infection, intestinal perforation requiring surgery, missed lesion were explained to the patient. The patient is understanding of the risks and wishes to proceed. Attestations Medical Necessity Statement*: Per primary Coding Level of Care Code Acute Code for [facility] Diagnoses Aspiration pneumonitis J69.0
[2023-02-13 06:34] LABS: Glucose Point of Care 163 mg/dL (70-110)
[2023-02-13] MEDS: meropenem 1,000 MG in sodium chloride 0.9% (plus) 50 ML 100 MG IV ×2 (07:39→18:40)
[2023-02-13] MEDS: budesonide 0.5 mg/2 mL Neb INHALATION ×2 (07:54→19:36)
[2023-02-13] MEDS: ipratropium-albuterol 3 mL Neb INHALATION ×3 (07:54→19:36)
--- NOTE | 2023-02-13 08:13 | PC.OT ---
OT TREATMENT HELD THIS DATE DUE TO PEG TUBE PLACEMENT THIS A.M. WILL ATTEMPT TREATMENTS TOMORROW.
[2023-02-13] MEDS: amiodarone 200 mg Tablet PO (08:39)
[2023-02-13] MEDS: vancomycin 750 MG in sodium chloride 0.9% 250 ML 250 MG IV ×2 (09:27→21:43)
[2023-02-13] MEDS: nystatin powder 15 gm Btl 1 APPLIC TOPICAL (09:40)
--- NOTE | 2023-02-13 09:55 | PC.NURSE ---
Patient off floor to GI lab for PEG tube placement.
[2023-02-13] MEDS: sodium chloride 0.9% 1,000 ML 30 ML IV (10:13)
--- NOTE | 2023-02-13 10:33 | PC.SOCIAL ---
imm update Imm updated with guardian with copy of page 2 provided. Copy in chart initialed, dated and timed.
--- NOTE | 2023-02-13 10:34 | ANES.PREANE2 ---
Pre-Anesthetic Assessment Height/Weight: Height 1.55 m Weight 63.775 kg Temp Pulse Resp BP Pulse Ox O2 Del Method O2 Flow Rate 97.2 F L 129 H 16 145/72 92 Nasal Cannula 2 02/13/23 10:03 02/13/23 10:03 02/13/23 10:03 02/13/23 10:03 02/13/23 10:03 02/13/23 10:03 02/13/23 07:57 Operation Date: 02/13/23 10:00 Proposed Procedures p PEG Tube Insertion Gastric Tube Insertion(Not Applicable) - Asim Neal DO Last intake: Intake Last Liquid Date 02/12/23 Last Liquid Time 11:59 Social No alcohol and No tobacco Exam alert and oriented x 3 Pulmonary aspiration pnuemonia CV/HEM Myocardial Infarction (NSTEMI) Chronic Renal Insufficiency Hepatic None reported Neuropsych Dementia patient not able to asnwer questions, information gained from chart review. Anesthetic Plan ASA status: 3 Anesthesia: Anesthesia Evaluation, General and MAC Other: consent obtained from nica hair- patients court appointed guardian. Medications/Allergies Home Medications Medication Instructions Recorded Confirmed Last Taken Type acetaminophen 325 mg tablet 650 mg PO Q4H PRN Pain 02/07/23 02/07/23 Unknown History albuterol sulfate 0.63 mg/3 mL 0.63 mg inhalation Q4H PRN 02/07/23 02/07/23 Unknown History solution for nebulization Shortness Of Breath Or Wheezing amlodipine 5 mg tablet 5 mg PO DAILY 02/07/23 02/07/23 Unknown History aspirin 81 mg tablet,delayed 81 mg PO DAILY 02/07/23 02/07/23 Unknown History release atorvastatin 10 mg tablet 10 mg PO QPM 02/07/23 02/07/23 Unknown History codeine 10 mg-guaifenesin 100 mg/5 5 ml PO Q6H PRN Cough 02/07/23 02/07/23 Unknown History mL oral liquid (Virtussin AC) docusate sodium 100 mg capsule 100 mg PO BID 02/07/23 02/07/23 Unknown History furosemide 20 mg tablet 20 mg PO DAILY 02/07/23 02/07/23 Unknown History lactulose 10 gram/15 mL oral 15 ml PO QPM 02/07/23 02/07/23 Unknown History solution losartan 25 mg tablet 25 mg PO DAILY 02/07/23 02/07/23 Unknown History magnesium hydroxide 400 mg/5 mL 30 ml PO DAILY PRN Constipation 02/07/23 02/07/23 Unknown History oral suspension (Milk of Magnesia) oxybutynin chloride 5 mg tablet 2.5 mg PO DAILY 02/07/23 02/07/23 Unknown History potassium chloride 10 mEq 10 meq PO DAILY 02/07/23 02/07/23 Unknown History tablet,extended release(part/cryst) Allergies Allergy/AdvReac Type Severity Reaction Status Date / Time No Known Allergies Allergy Verified 02/06/23 15:25 Current Medications Generic Name Dose Route Start Last Admin Trade Name Freq PRN Reason Stop Dose Admin Acetaminophen 650 mg 02/06/23 20:33 02/08/23 19:55 Acetaminophen 325 Mg Tablet PO 650 mg Q6H PRN Administration Mild/Mod Pain Or Temp >/= 101 Albuterol/Ipratropium 3 ml 02/07/23 08:00 02/13/23 07:54 Ipratropium-Albuterol 3 Ml Neb INHALATION 3 ml QID.RESPIRATORY ZURDO Administration Albuterol/Ipratropium 3 ml 02/07/23 05:16 02/09/23 02:59 Ipratropium-Albuterol 3 Ml Neb INHALATION 3 ml Q4H PRN Administration SHORTNESS OF BREATH Amiodarone HCl 200 mg 02/09/23 09:00 02/13/23 08:39 Amiodarone 200 Mg Tablet PO 200 mg DAILY ZURDO Administration Budesonide 0.5 mg 02/07/23 08:00 02/13/23 07:54 Budesonide 0.5 Mg/2 Ml Neb INHALATION 0.5 mg BID.RESPIRATORY ZURDO Administration Multivitamins 10 ml/ Amino 1,010 mls @ 0 mls/hr 02/08/23 16:00 02/12/23 19:12 Acids/Electrolytes IV 42 mls/hr .Q0M ZURDO Administration Protocol As Directed fat emulsions 20% 100 mls @ 8.333 mls/hr 02/11/23 22:00 02/13/23 09:41 Intralipid 20% IV Infused Q24H ZURDO Infusion Meropenem 1,000 mg/ Sodium 50 mls @ 100 mls/hr 02/12/23 08:30 02/13/23 08:39 Chloride IV Infused Q8H ZUDRO Infusion Protocol Vancomycin HCl 750 mg/ Sodium 250 mls @ 250 mls/hr 02/12/23 09:00 02/13/23 09:27 Chloride IV 250 mls/hr Q12H ZURDO Administration Protocol As Directed Sodium Chloride 1,000 mls @ 30 mls/hr 02/13/23 10:15 02/13/23 10:13 Sodium Chloride 0.9% IV 02/14/23 10:14 30 mls/hr .Q24H ZURDO Administration Insulin Human Lispro 0 unit 02/07/23 08:00 02/13/23 07:23 Insulin Lispro 100 Unit/1 Ml SUBCUT Not Given TIDWM ZURDO Protocol Lanolin 1 applic 02/07/23 22:54 02/08/23 00:29 Lanolin Oint 7 Gm TOPICAL 1 applic PRN PRN Administration DRYNESS Metoprolol Tartrate 25 mg 02/10/23 17:00 02/13/23 05:17 Metoprolol Tartrate 25 Mg Tablet PO Not Given BID@0500,1700 ZURDO Morphine Sulfate 1 mg 02/12/23 18:51 02/13/23 06:48 Morphine 4 Mg/Ml Sdv 1 Ml IVP 1 mg Q4H PRN Administration SEVERE PAIN Nystatin 1 applic 02/10/23 09:00 02/13/23 09:40 Nystatin Powder 15 Gm Btl TOPICAL 1 applic BID ZURDO Administration Olanzapine 5 mg 02/11/23 21:00 02/12/23 19:12 Olanzapine 5 Mg Tablet PO Not Given BEDTIME ZURDO Pantoprazole Sodium 40 mg 02/06/23 23:15 02/12/23 21:20 Pantoprazole 40 Mg Sdv IVP 40 mg Q12H ZURDO Administration Simethicone 160 mg 02/10/23 09:00 02/13/23 09:17 Simethicone 80 Mg Chew PO Not Given QID ZURDO PFSH Anesthesia Medical History Dementia Social History Smoking and tobacco status: never smoked Alcohol intake: never Substance/Drug Use: never Data Anesthesia 02/13/23 03:04 02/13/23 03:04 Short CBC 02/12/23 02/13/23 Range/Units 04:46 03:04 WBC 24.2 H 25.6 H (4.0-10.0) 10^3/uL Hgb 11.2 L 10.4 L (11.5-15.3) g/dL Hct 37.6 34.3 L (37.0-47.0) % MCV 91.9 91.7 (81-99) fl Plt Count 342 270 (130-400) 10^3/cmm Neut % (Auto) 66.2 % Neut # (Auto) 16.97 H (1.8-7.7) 10^3/uL BMP 02/12/23 02/13/23 04:46 03:04 Sodium 139 141 Potassium 4.1 4.1 Chloride 103 105 Carbon Dioxide 24 28 BUN 21 20 Creatinine 0.7 0.6 Glucose 185 H 150 H Calcium 8.7 8.5 Cardiac Enzymes 02/12/23 Range/Units 04:46 NT-Pro-B Natriuret Pep 403 (0-450) pg/mL Liver Function 02/12/23 02/13/23 Range/Units 04:46 03:04 Total Bilirubin 1.1 1.0 (0.15-1.2) mg/dL AST 74 H 50 H (0-32) U/L ALT 31 26 (0-33) U/L Alkaline Phosphatase 81 87 (35-105) U/L Albumin 2.9 L 2.7 L (3.5-5.2) g/dL Urine 02/12/23 Range/Units 20:04 Urine Color Yellow (Yellow) Urine Appearance Hazy A (CLEAR) Urine pH 5 (5-7) Ur Specific [place] 1.025 (1.005-1.030) Urine Protein 1+ H (Negative) Urine Glucose (UA) 2+ H (Normal) Urine Ketones 1+ H (Negative) Urine Nitrate Negative (Negative) Urine Bilirubin 1+ H (Negative) Ur Leukocyte Esterase Negative (Negative) Urine RBC 5-10 H (0-2) /hpf Urine WBC 0-4 H (0-5) /hpf Coags 02/12/23 04:46 C-Reactive Protein 39.4 H Microbiology 02/12/23 09:04 Blood Culture - Preliminary Blood NEGATIVE TO DATE 02/12/23 09:12 Blood Culture - Preliminary Blood NEGATIVE TO DATE Cardiac Studies: Echocardiogram 02/07/23
--- NOTE | 2023-02-13 11:10 | ANES.PAUD2 ---
Documented by User: Genesis Rosado CRNA 02/15/23 06:53 Pre-Anesthetic Update Pre-Anesthetic Assessment: Date of Surgery/Procedure: 02/15/23 Proposed Procedure: Operation Date: 02/13/23 10:00 Proposed Procedures p PEG Tube Insertion Gastric Tube Insertion(Not Applicable) - Asim Neal DO Changes from Pre-Anesthetic Assessment: Afib with RVR. Poor response to Esmolol. Procedure cancelled until further rate control. Last Intake: Intake Last Liquid Date 02/12/23 Last Liquid Time 11:59 Labs Last 48hrs: Short CBC 02/12/23 02/13/23 Range/Units 04:46 03:04 WBC 24.2 H 25.6 H (4.0-10.0) 10^3/ uL Hgb 11.2 L 10.4 L (11.5-15.3) g/dL Hct 37.6 34.3 L (37.0-47.0) % MCV 91.9 91.7 (81-99) fl Plt Count 342 270 (130-400) 10^3/c mm Neut % (Auto) 66.2 % Neut # (Auto) 16.97 H (1.8-7.7) 10^3/u L BMP 02/12/23 02/13/23 04:46 03:04 Sodium 139 141 Potassium 4.1 4.1 Chloride 103 105 Carbon Dioxide 24 28 BUN 21 20 Creatinine 0.7 0.6 Glucose 185 H 150 H Calcium 8.7 8.5 Cardiac Enzymes 02/12/23 Range/Units 04:46 NT-Pro-B Natriuret Pep 403 (0-450) pg/mL Liver Function 02/12/23 02/13/23 Range/Units 04:46 03:04 Total Bilirubin 1.1 1.0 (0.15-1.2) mg/dL AST 74 H 50 H (0-32) U/L ALT 31 26 (0-33) U/L Alkaline Phosphata se 81 87 (35-105) U/L Albumin 2.9 L 2.7 L (3.5-5.2) g/dL Urine 02/12/23 Range/Units 20:04 Urine Color Yellow (Yellow) Urine Appearance Hazy A (CLEAR) Urine pH 5 (5-7) Ur Specific Gravit y 1.025 (1.005-1.030) Urine Protein 1+ H (Negative) Urine Glucose (UA) 2+ H (Normal) Urine Ketones 1+ H (Negative) Urine Nitrate Negative (Negative) Urine Bilirubin 1+ H (Negative) Ur Leukocyte Adina ase Negative (Negative) Urine RBC 5-10 H (0-2) /hpf Urine WBC 0-4 H (0-5) /hpf Coags 02/12/23 04:46 C-Reactive Protein 39.4 H Vitals: Temperature 97.2 F L 02/13/23 10:03 Temperature Source Axillary 02/13/23 07:40 Pulse Rate 129 H 02/13/23 10:03 Pulse Rhythm Irregular 02/12/23 19:26 Pulse Strength 3+ Normal 02/13/23 08:54 Respiratory Rate 16 02/13/23 10:03 Respiratory Effort Spontaneous, Non- Labored 02/13/23 08:54 Respiratory Depth Normal 02/13/23 08:54 Respiratory Patter n Normal 02/13/23 00:37 Blood Pressure 145/72 02/13/23 10:03 Blood Pressure Nicole n 96 02/13/23 10:03 Blood Pressure Pos ition Semi Fowlers 02/13/23 07:40 Pulse Oximetry 92 02/13/23 10:03 Oxygen Delivery Me thod Nasal Cannula 02/13/23 10:03 Oxygen Flow Rate 2 02/13/23 07:57 Sepsis Recent Feve r Within 48 Hours No 02/06/23 15:21 Sepsis New/Unexpla ined Change in Men yanick Status No 02/06/23 15:21 Cardiac Studies: Echocardiogram 02/07/23 Documented by User: Brittany Lanier CRNA 02/13/23 11:12 Pre-Anesthetic Update Pre-Anesthetic Assessment: Date of Surgery/Procedure: 02/13/23 Cardiac Studies: Echocardiogram 02/07/23
--- NOTE | 2023-02-13 11:27 | ANES.PAUD2 ---
Pre-Anesthetic Update Pre-Anesthetic Assessment: Date of Surgery/Procedure: 02/13/23 Proposed Procedure: Operation Date: 02/13/23 10:00 Proposed Procedures p PEG Tube Insertion Gastric Tube Insertion(Not Applicable) - Asim Neal DO Last Intake: Intake Last Liquid Date 02/12/23 Last Liquid Time 11:59 Labs Last 48hrs: Short CBC 02/12/23 02/13/23 Range/Units 04:46 03:04 WBC 24.2 H 25.6 H (4.0-10.0) 10^3/ uL Hgb 11.2 L 10.4 L (11.5-15.3) g/dL Hct 37.6 34.3 L (37.0-47.0) % MCV 91.9 91.7 (81-99) fl Plt Count 342 270 (130-400) 10^3/c mm Neut % (Auto) 66.2 % Neut # (Auto) 16.97 H (1.8-7.7) 10^3/u L BMP 02/12/23 02/13/23 04:46 03:04 Sodium 139 141 Potassium 4.1 4.1 Chloride 103 105 Carbon Dioxide 24 28 BUN 21 20 Creatinine 0.7 0.6 Glucose 185 H 150 H Calcium 8.7 8.5 Cardiac Enzymes 02/12/23 Range/Units 04:46 NT-Pro-B Natriuret Pep 403 (0-450) pg/mL Liver Function 02/12/23 02/13/23 Range/Units 04:46 03:04 Total Bilirubin 1.1 1.0 (0.15-1.2) mg/dL AST 74 H 50 H (0-32) U/L ALT 31 26 (0-33) U/L Alkaline Phosphata se 81 87 (35-105) U/L Albumin 2.9 L 2.7 L (3.5-5.2) g/dL Urine 02/12/23 Range/Units 20:04 Urine Color Yellow (Yellow) Urine Appearance Hazy A (CLEAR) Urine pH 5 (5-7) Ur Specific Gravit y 1.025 (1.005-1.030) Urine Protein 1+ H (Negative) Urine Glucose (UA) 2+ H (Normal) Urine Ketones 1+ H (Negative) Urine Nitrate Negative (Negative) Urine Bilirubin 1+ H (Negative) Ur Leukocyte Adina ase Negative (Negative) Urine RBC 5-10 H (0-2) /hpf Urine WBC 0-4 H (0-5) /hpf Coags 02/12/23 04:46 C-Reactive Protein 39.4 H Vitals: Temperature 97.2 F L 02/13/23 10:03 Temperature Source Axillary 02/13/23 07:40 Pulse Rate 129 H 02/13/23 10:03 Pulse Rhythm Irregular 02/12/23 19:26 Pulse Strength 3+ Normal 02/13/23 08:54 Respiratory Rate 16 02/13/23 10:03 Respiratory Effort Spontaneous, Non- Labored 02/13/23 08:54 Respiratory Depth Normal 02/13/23 08:54 Respiratory Patter n Normal 02/13/23 00:37 Blood Pressure 145/72 02/13/23 10:03 Blood Pressure Nicole n 96 02/13/23 10:03 Blood Pressure Pos ition Semi Fowlers 02/13/23 07:40 Pulse Oximetry 92 02/13/23 10:03 Oxygen Delivery Me thod Nasal Cannula 02/13/23 10:03 Oxygen Flow Rate 2 02/13/23 07:57 Sepsis Recent Feve r Within 48 Hours No 02/06/23 15:21 Sepsis New/Unexpla ined Change in Men yanick Status No 02/06/23 15:21 Other Pertinent Information: Other Pertinent Information: Surgeon and hospitalist at bedside, hospitalist ordered amio bolus and drip to be given by anesthesia in order to proceed with procedure once rate controlled. Cardiac Studies: Echocardiogram 02/07/23
--- NOTE | 2023-02-13 12:00 | PC.NURSE ---
Pt case canceled for today due to Afib w/ RVR. Unable to convert with meds by anesthesia. Dr Dang at bedside and ordered to stop TPN due to swelling and pain at PICC sight. Dr Dang stated he would be placing order for meds for the Afib. Report called to CAMACHO Myers on CSU. Will attempt PEG tube tomorrow, per Dr Neal.
--- NOTE | 2023-02-13 12:42 | USCV_ITS ---
Lissa Pete Age: 87 Gender: F : 1935 Exam Date: 02/13/2023 13:26 Ordering Phys: Herbert Dang MD Technologist: CT Exam Location: [facility] – [place] Indication: rt arm swelling PROCEDURES: Venous duplex imaging was performed in only the right upper extremity. FINDINGS: occluding thrombus in axillary and basillic veins CONCLUSIONS Occlusive thrombus in Rt axillary and basilic veins Remainder Rt arm veins patent D/w Dr Dang at 1643 Amari Calles MD (Electronically Signed) Final Date: 13 February 2023 16:45 S
--- NOTE | 2023-02-13 13:05 | PC.SLP ---
BUILDING SERVICES ENGINEER did not see her today due to her having surgery.
--- NOTE | 2023-02-13 15:46 | PC.NURSE ---
Patient converted back into sinus rhythm from afib with rvr at approx 1507. Amiodarone dose dropped to 0.[address] Dang.
--- NOTE | 2023-02-13 18:01 | P.PN_ITS ---
Subjective Subjective: - Patient was seen this morning, she is a bit more alert and awake, she follows, she is able to smile for me squeeze my fingers, white count up to 25.6,, right arm is swollen, on 3 L -Patient was taken to GI suite for PEG tube placement -GI suite she developed A-fib with RVR, I examined her she was alert and awake, heart rates were in the 120s, normotensive, on instructed nursing staff to give her 150 amiodarone, however heart rates remained in the 120s she was moved back to CSU -Examined in CSU heart rate still in the 120s, she is alert, awake, no respiratory distress, she was managed with amiodarone drip -Heart rates improved into the 70s, then she converted to normal sinus rhythm -Reexamined, continues to right arm swelling ultrasound ordered -Ultrasound of right arm shows upper extremity DVT -Instructed nursing staff to remove PICC line, start heparin drip -She does have history of hematemesis we will have to monitor her for recurrent hematemesis very closely monitor hemoglobin closely Vitals/I&O/Wt Last Vital Signs Temp 97.2 F L 02/13/23 10:03 Pulse 60 02/13/23 16:05 Resp 20 H 02/13/23 16:02 BP 102/57 02/13/23 16:02 Pulse Ox 94 02/13/23 16:02 O2 Del Method Nasal Cannula 02/13/23 15:24 O2 Flow Rate 3.5 02/13/23 15:24 02/13/23 02/13/23 02/13/23 06:59 14:59 22:59 Intake Total 150 / 1852.6 400 / 400 109.92 / 509.92 Output Total 200 / 400 Balance -50 / 1452.6 400 / 400 109.92 / 509.92 Weight last 48 hrs Weight 63.775 kg Weight 64.818 kg Weight 64.818 kg Physical Exam Const: COMMON NORMALS: no acute distress Resp: COMMON NORMALS: normal respiratory effort, No retractions, No use of accessory muscles and clear to auscultation bilaterally AUSCULTATION: clear to auscultation bilaterally Cardio: COMMON NORMALS: regular rate, regular rhythm, S1 normal heart sound present and S2 normal heart sound present RATE: regular rate RHYTHM: regular rhythm HEART SOUNDS: S1 normal heart sound present and S2 normal heart sound present GI: COMMON NORMALS: Normal to inspection, nondistended, normoactive bowel sounds present and non-tender Extremity: COMMON NORMALS: no pedal edema Urinary Catheter Management: Nelson: Cath Placed During This Visit: yes Reason for Continuing Indwelling Catheter: Acute Urinary Retention or Obstruction Urinary Catheter Date of Insertion: 02/07/23 Urinary Catheter Time of Insertion: 00:20 Data 02/13/23 03:04 02/13/23 03:04 Micro: Microbiology 02/12/23 09:04 Blood Culture - Preliminary Blood NEGATIVE TO DATE 02/12/23 09:12 Blood Culture - Preliminary Blood NEGATIVE TO DATE A&P Assessment and plan (1) Atrial fibrillation with rapid ventricular response: (2) Dementia: (3) UGIB (upper gastrointestinal bleed): (4) Fracture of distal end of humerus: Qualifiers: Encounter type: initial encounter Fracture alignment: nondisplaced Fracture type: closed Laterality: left (5) Sepsis: (6) NSTEMI (non-ST elevated myocardial infarction): (7) MIKEY (acute kidney injury): (8) Small bowel obstruction: (9) Aspiration pneumonia: (10) Hypoxia: (11) Lactic acidosis: (12) Septic shock: (13) Altered mental status: (14) Protein calorie malnutrition: (15) Physical deconditioning: (16) Recurrent aspiration events: (17) Aspiration pneumonitis: (18) Acute respiratory distress: (19) Bronchospasm: (20) Acute basilic vein thrombosis: Plan Acute basilic vein thrombosis -Start on heparin drip -Remove PICC line A-fib with RVR -Converted back to normal sinus rhythm -Continue amiodarone drip Acute respiratory distress, likely secondary to bronchospasm, currently resolved -Improved with nebulizers, 2 g of mag -Continue DuoNebs as needed, respiratory therapy eval, monitor respiratory status closely -Currently resting comfortably, equal breath sounds bilaterally, no nasal flaring, no intercostal retractions, no tachypnea, on 3 L Altered mental status, improving -Persistent confusion could be due to underlying dementia, could be ICU syndrome, persistent encephalopathy due to metabolic, aspiration pneumonia -With underlying dementia -We will monitor closely -Neurochecks, aspiration precautions Small bowel obstruction CT scan 3. ? Long segment mild diffuse small bowel distension with no obvious abrupt transition or pneumatosis. Findings suggest distal small bowel obstruction and follow-up should be obtained. Surgical consultation should also be considered. Moderate fluid-filled gastric lumen. Prior CT exam June 2017 demonstrated small-bowel obstruction with higher grade than prior exam. Gastroenteritis/ileus should also be excluded clinically. No free air or obvious drainable abscess. Bowel wall assessment is limited due to lack of contrast. 4. ? Moderate proximal colonic liquid stool and moderate-large solid rectal/sigmoid colon stool which may represent early fecal impaction. There is also probable mild stercoral proctitis. Colonic diverticulosis without diverticulitis. -Has had 1 bowel movement Plan -Currently n.p.o. due to high aspiration risk -Concerns for fluid overload, hold off on fluid therapy -Serial abdominal exams -General surgery consulted -NG tube removed -Plans on Dobbhoff placement for nutrition -Continue speech therapy eval -Currently on on peripheral neutral and Aspiration pneumonia, continues to have leukocytosis up to 25 afebrile overnight -Continues to have evidence of aspiration pneumonitis, aspiration pneumonia due to elevated white count -Given patient's initial septic shock, clinical presentation -Given patient small bowel obstruction, concerns for aspiration event -Seen on chest x-ray Mild right perihilar and right basilar pneumonia. -Her white blood cell count continues to elevate, currently 24,000 CRP 39.4 Pro- Tate 0.18 Plan -Continue to monitor respiratory status closely -Follow blood cultures -Keep n.p.o., aspiration precautions -Broaden antibiotic coverage to Primaxin, vancomycin -Repeat blood cultures pending Septic shock -Currently off Levophed -Likely combination of sepsis from aspiration pneumonia, and from Cardizem -Continue to monitor Lactic acidosis, resolved A-fib with RVR Episodes of hematemesis -Currently on anticoagulation due to basilic vein thrombosis we will start anticoagulation heparin drip -Monitor for for hematemesis, her hemoglobin -Zofran for nausea -Monitor hemoglobin -Protonix, NSTEMI -Likely supply demand ischemia from sepsis as above, atrial fibrillation -LV systolic function is normal with EF of 55 to 60%. ?Grade 1 diastolic dysfunction ?Mild mitral regurgitation ?Mild aortic stenosis.? Mild aortic regurgitation ?Mild tricuspid regurgitation ?Moderate pulmonary hypertension ?Mild pulmonic regurgitation ?No comparison studies are available Distal humeral fracture, conservative management Hypoxia, continue oxygen as above History of diabetes, A1c, low-dose sliding scale Physical deconditioning PT OT Protein calorie malnutrition,, moderate, on examination has peripheral muscle wasting, temporal muscle wasting PICC line placed, for peripheral nutrition Plan for today on amiodarone drip, on heparin drip, monitor hemoglobin, monitor hematemesis, hold TPN Attestations Medical Necessity Statement*: Patient requires hospitalization for A-fib with RVR, basilic vein thrombosis, pursuing PEG tube placement, aspiration pneumonia climbing what leukocytosis Coding Level of Care Code Critical Care >/= 30 minutes Critical care time (in minutes): 40 The high probability of a clinically significant, sudden or life threatening deterioration, as referenced in this documentation, required my full and direct attention, intervention and personal management. The critical care time shown is in addition to time spent performing any reported separately billable procedures and includes the following: [x] Data and vital sign review and interpretation [x ] Patient assessment, examination and intervention [x] Medication orders and management [x] Patient/Family updates as able [x] Care Coordination and Documentation. Diagnoses Atrial fibrillation with rapid ventricular response I48.91 Dementia F03.90 UGIB (upper gastrointestinal bleed) K92.2 Fracture of distal end of humerus S42.409A Encounter type: initial encounter Fracture alignment: nondisplaced Fracture type: closed Laterality: left Sepsis A41.9 NSTEMI (non-ST elevated myocardial infarction) I21.4 MIKEY (acute kidney injury) N17.9 Small bowel obstruction K56.609 Aspiration pneumonia J69.0 Hypoxia R09.02 Lactic acidosis E87.20 Septic shock A41.9; R65.21 Altered mental status R41.82 Protein calorie malnutrition E46 Physical deconditioning R53.81 Recurrent aspiration events Aspiration pneumonitis J69.0 Acute respiratory distress R06.03 Bronchospasm J98.01 Acute basilic vein thrombosis I82.619
[2023-02-13] MEDS: heparin 5,000 unit/mL INJ 1 mL IV (18:29)
[2023-02-13] MEDS: heparin drip 25,000 UNIT/500 ML PREMIX 19 UNIT IV (18:35)
[2023-02-13] MEDS: metoprolol tartrate 25 mg Tablet PO (18:50)
--- NOTE | 2023-02-13 20:02 | PC.NURSE ---
PICC line was removed by nurse at [address] Dang for thrombus in the basilic and axillary veins. Dr. Dang also VOALTED nurse to hold TPN for now.
[2023-02-13 20:51] LABS: Vancomycin Trough 11.5 ug/mL (10-15)
[2023-02-13] MEDS: simethicone 80 mg Chew 160 MG PO (20:51)
[2023-02-13] MEDS: OLANZapine 5 mg TABLET PO (20:51)
[2023-02-13 21:24] LABS: Hematocrit 35.8 % (37.0-47.0); Hemoglobin 10.8 g/dL (11.5-15.3)
--- NOTE | 2023-02-13 22:10 | PC.NURSE ---
per report and multiple notes, TPN is on hold and another note stated to discontinue. currently pt has no extra lines to be used.
[2023-02-13] MEDS: pantoprazole 40 mg SDV IVP (22:59)
[2023-02-14] VITALS (19 sets, daily range): BP systolic 103–186; BP diastolic 47–71; PULSE 66–84; RESP 16–33; TEMP 36.4–38.1; O2SAT 88–100; BMI 28.2
[2023-02-14] MEDS: meropenem 1,000 MG in sodium chloride 0.9% (plus) 50 ML 100 MG IV ×4 (00:03→23:35)
[2023-02-14] MEDS: morphine 4 mg/mL SDV 1 mL 1 MG IVP ×2 (00:31→19:24)
[2023-02-14] MEDS: ipratropium-albuterol 3 mL Neb INHALATION ×5 (00:57→20:09)
[2023-02-14 01:12] LABS: Glucose Point of Care 152 mg/dL (70-110)
[2023-02-14] MEDS: racepinephrine 0.5 mL Neb INHALATION (01:17)
[2023-02-14 01:27] LABS: Hematocrit 36.7 % (37.0-47.0); Hemoglobin 11.2 g/dL (11.5-15.3); Mean Corpuscular HGB Conc 30.5 g/dL (30.0-36.0); Mean Corpuscular Hemoglobin 28.3 pg (28.0-34.0); Mean Corpuscular Volume 92.7 fl (81-99); Mean Platelet Volume 11.2 fL (7.4-10.4); Platelet Count 310 10^3/cmm (130-400); Red Blood Count 3.96 10^6/uL (4.1-5.3); Red Cell Distribution Width 13.8 % (12.1-15.1)
[2023-02-14 01:42] LABS: Alanine Aminotransferase 32 U/L (0-33); Alkaline Phosphatase 85 U/L (35-105); Anion Gap 10.5 (5-19); Aspartate Amino Transferase 43 U/L (0-32); Blood Urea Nitrogen 18 mg/dL (8-23); C Reactive Protein 51.1 mg/L (0.0-4.9); Calcium 8.2 mg/dL (8.5-10.5); Carbon Dioxide 28 mmol/L (22-29); Chloride 105 mmol/L (98-107); Globulin 3.2 g/dL (1.3-4.6); Glucose 135 mg/dL (65-115); Magnesium 2.3 mg/dL (1.7-2.3); Osmolality Calculated 292 mOsm/kg (285-295); Potassium 4.5 mmol/L (3.5-5.1); Sodium 139 mmol/L (136-145); Total Bilirubin 1.2 mg/dL (0.15-1.2); Total Protein 6.2 g/dL (6.6-8.7)
[2023-02-14 01:54] LABS: NT Pro B Type Natriuretic Pept 1070 pg/mL (0-450)
[2023-02-14 01:58] LABS: Partial Thromboplastin Time > 250.0 SECONDS (23.9-36.7)
[2023-02-14 02:13] LABS: Total Cells Counted 100 (0-100)
[2023-02-14 02:14] LABS: Absolute Eosinophils 1.1 10^3/cmm (0.0-0.7); Absolute Segmented Neutrophil 30.3 10/cmm (1.6-7.1); Eosinophils 3 %; Lymphocytes 7 %; Monocytes Absolute 2.8 10^3/cmm (0.1-0.6); Platelet Estimate Normal (Normal); Segmented Neutrophils 76 %
[2023-02-14 02:15] LABS: White Blood Count 39.9 10^3/uL (4.0-10.0)
[2023-02-14] MEDS: metoprolol tartrate 25 mg Tablet PO (05:20)
--- NOTE | 2023-02-14 07:00 | XRR_ITS ---
PROCEDURE INFORMATION: Exam: XR Chest Exam date and time: 02/14/2023 7:44 AM Age: 87 years old Clinical indication: Device placement; Picc TECHNIQUE: Imaging protocol: Radiologic exam of the chest. Views: 1 view. COMPARISON: CR XR chest 1V portable [id number] 02/12/2023 8:18 AM FINDINGS: Lungs: Unremarkable. No consolidation. Pleural spaces: Unremarkable. No pleural effusion. No pneumothorax. Heart/Mediastinum: Unremarkable. No cardiomegaly. Bones/joints: The bones are osteopenic with a dextroconvex curvature of the thoracic spine. XR/XR chest 1V portable [id number] IMPRESSION: No acute cardiopulmonary disease.
[2023-02-14 07:39] LABS: Partial Thromboplastin Time 21.4 SECONDS (23.9-36.7)
[2023-02-14] MEDS: budesonide 0.5 mg/2 mL Neb INHALATION ×2 (08:07→20:09)
--- NOTE | 2023-02-14 08:18 | CTR_ITS ---
PROCEDURE INFORMATION: Exam: CTA Chest With Contrast Exam date and time: 02/14/2023 8:59 AM Age: 87 years old Clinical indication: Condition or disease; Other: Leukocytosis TECHNIQUE: Imaging protocol: Computed tomographic angiography of the chest with contrast. Exam focused on the arteries. 3D rendering (Not supervised by radiologist): MIP and/or 3D reconstructed images were created by the technologist. Radiation optimization: All CT scans at this facility use at least one of these dose optimization techniques: automated exposure control; mA and/or kV adjustment per patient size (includes targeted exams where dose is matched to clinical indication); or iterative reconstruction. Contrast material: OMNI 350; Contrast volume: 100 ml; Contrast route: INTRAVENOUS (IV); REPORTING DATA: Count of CT and Cardiac NM exams in prior 12 months: This patient has received 4 known CTs and 0 known cardiac nuclear medicine studies in the 12 months prior to the current study. COMPARISON: [place] [id number] 02/07/2023 2:24 AM RADIATION DOSE METRICS: Total DLP (mGy-cm): 1216.82 FINDINGS: Pulmonary arteries: Filling defects are noted within right upper lobe pulmonary artery segmental branches compatible with pulmonary embolism. There is no evidence for right heart strain with an RV to LV ratio measures less than 1. Aorta: Unremarkable. No aortic aneurysm. No aortic dissection. Thyroid: The thyroid gland is markedly enlarged, nodular with calcific the thyroid gland is markedly enlarged and heterogeneous with calcific nodules particularly the left lobe which extends inferiorly toward the thoracic inlet. Please correlate with dedicated thyroid ultrasound. Lungs: [place] dependent change is noted elsewhere in the lungs. A calcified pleural-based granuloma is noted in the inferior lateral costophrenic sulcus. Pleural spaces: There is a small right pleural effusion with adjacent atelectasis. Heart: See Pulmonary arteries finding. Lymph nodes: Unremarkable. No enlarged lymph nodes. Bones/joints: Degenerative changes are noted in the bones with ankylosis spine. Soft tissues: Unremarkable. COMMENTS: Consistent with the [employer]'s Incidental Findings Committee white paper (J Am Albert [employer]iol 2015): In patients aged 35 years and older with an incidental thyroid nodule equal to or greater than 1.[address], MRI or extrathyroidal US, further evaluation with dedicated thyroid US is recommended for patients with normal life expectancy and without comorbidities. For smaller nodules without suspicious features, no further evaluation or follow up is recommended. PROCEDURE INFORMATION: Exam: CT Abdomen And Pelvis With Contrast Exam date and time: 02/14/2023 8:59 AM Age: 87 years old Clinical indication: Condition or disease; Other: Leukocytosis TECHNIQUE: Imaging protocol: Computed tomography of the abdomen and pelvis with contrast. Radiation optimization: All CT scans at this facility use at least one of these dose optimization techniques: automated exposure control; mA and/or kV adjustment per patient size (includes targeted exams where dose is matched to clinical indication); or iterative reconstruction. Contrast material: OMNI 350; Contrast volume: 100 ml; Contrast route: INTRAVENOUS (IV); REPORTING DATA: Count of CT and Cardiac NM exams in prior 12 months: This patient has received 4 known CTs and 0 known cardiac nuclear medicine studies in the 12 months prior to the current study. COMPARISON: [place] [id number] 02/07/2023 2:24 AM RADIATION DOSE METRICS: Total DLP (mGy-cm): 1216.82 FINDINGS: Liver: Normal. No mass. Gallbladder and bile ducts: Gallbladder is filled with stones. Pancreas: Normal. No ductal dilation. Spleen: Normal. No splenomegaly. Adrenal glands: Normal. No mass. Kidneys and ureters: The kidneys enhance symmetrically and there is no hydronephrosis. Exophytic cortical cysts are noted arising from the upper poles measuring up to 8.5 x 7 0 cm left. In the posterior left renal midportion there is a 3.2 x 3.9 x 3.4 cm enhancing mass compatible with a renal neoplasm. Stomach and bowel: There are dilated loops of small bowel throughout the abdomen with a transition in the mid abdomen where there is notable swirling of the mesentery, compatible with small bowel obstruction possibly due to an internal hernia. See axial image 51 on series 5, coronal image 21 on series 14. The colon is largely contracted. Appendix: No evidence of appendicitis. Intraperitoneal space: See Stomach and bowel finding. Vasculature: Unremarkable. No abdominal aortic aneurysm. Lymph nodes: Unremarkable. No enlarged lymph nodes. Urinary bladder: The urinary bladder is contracted around a Nelson catheter. Reproductive: The uterus is bulky due to multiple calcified fibroids. Bones/joints: Degenerative changes are noted in the bones with ankylosis of the thoracolumbar spine. Soft tissues: Unremarkable. CT/CT angio chest w abd pel w con IMPRESSION: Pulmonary embolism. No evidence for right heart strain. Small right pleural effusion with adjacent atelectasis. Nodular goiter. Please correlate with dedicated thyroid ultrasound. IMPRESSION: High-grade small bowel obstruction with a transition in the mid abdomen possibly due to an internal hernia. 3.9 cm left renal neoplasm unchanged in caliber when compared with the prior noncontrast CT examination. Please correlate with tissue sampling. Cholelithiasis. Renal cysts. Leiomyomatous uterus.
[2023-02-14] MEDS: vancomycin 750 MG in sodium chloride 0.9% 250 ML 250 MG IV ×2 (08:24→20:32)
[2023-02-14] MEDS: nystatin powder 15 gm Btl 1 APPLIC TOPICAL ×2 (08:25→18:31)
[2023-02-14] MEDS: iohexol 350 mg/mL 500 mL Btl (per mL) IV (09:17)
--- NOTE | 2023-02-14 10:43 | PC.SLP ---
Peg tube placement was postponed to today. Pt not seen.
[2023-02-14] MEDS: pantoprazole 40 mg SDV IVP ×2 (11:32→22:16)
[2023-02-14 15:03] LABS: Partial Thromboplastin Time 44.3 SECONDS (23.9-36.7)
[2023-02-14] MEDS: heparin 5,000 unit/mL INJ 1 mL IV ×2 (16:21→22:38)
--- NOTE | 2023-02-14 18:41 | P.PN_ITS ---
Subjective Subjective: - Patient was examined multiple times throughout the morning -Early this morning, she was examined, she did look as if she was a bit short of breath, she is alert to person, not to place, to time she is able to smile for me squeeze my fingers, she is on 3 L, -Concerns for pulmonary embolism -CT angiogram of the chest was ordered, confirmed pulmonary embolism, she is already on a heparin drip for PICC line associated DVT -She also has radiographic evidence of renal neoplasm -CT of the abdomen did show concerns for high-grade bowel obstruction, with transition point, with internal hernia -Spoke to V RADS -Spoke to general surgery, NG tube order placed -Spoke to nursing staff -My concern is is that her stools are positive for blood, and she has had hematemesis earlier on in in her admission, I am quite concerned for the risk of GI bleed, and hematemesis, will have to watch her quite closely, -Spoke to general surgery, concerns for high-grade bowel obstruction, she might require surgery, will continue to monitor, if she does need surgery to high risk, especially as she has pulmonary emboli, high risk of morbidity mortality, especially as anticoagulation will have to be held -We will need to discuss with patient's guardian of the state -PEG tube placement has been delayed for now -Hemoglobin 11.2 -Remains on amiodarone drip, normal sinus rhythm -On heparin drip Vitals/I&O/Wt Last Vital Signs Temp 97.6 F 02/14/23 16:00 Pulse 79 02/14/23 16:00 Resp 20 H 02/14/23 16:00 BP 103/60 02/14/23 16:00 Pulse Ox 95 02/14/23 16:00 O2 Del Method Nasal Cannula 02/14/23 16:00 O2 Flow Rate 3 02/14/23 15:07 02/14/23 02/14/23 02/14/23 06:59 14:59 22:59 Intake Total 1000 / 1799.92 300 / 300 822.597 / 1122.597 Output Total 180 / 280 315 / 315 Balance 820 / 1519.92 300 / 300 507.597 / 807.597 Weight last 48 hrs Weight 67.784 kg Weight 67.784 kg Weight 63.645 kg Weight 63.775 kg Physical Exam Const: COMMON NORMALS: no acute distress Resp: COMMON NORMALS: normal respiratory effort, No retractions and No use of accessory muscles AUSCULTATION: crackles and wheezes Cardio: COMMON NORMALS: regular rate, regular rhythm, S1 normal heart sound present and S2 normal heart sound present RATE: regular rate RHYTHM: regular rhythm HEART SOUNDS: S1 normal heart sound present and S2 normal heart sound present GI: COMMON NORMALS: Normal to inspection, nondistended, normoactive bowel sounds present and non-tender Extremity: COMMON NORMALS: no pedal edema Psych: COMMON NORMALS: mental status grossly normal Urinary Catheter Management: Nelson: Cath Placed During This Visit: yes Reason for Continuing Indwelling Catheter: Acute Urinary Retention or Obstruction Urinary Catheter Date of Insertion: 02/07/23 Urinary Catheter Time of Insertion: 00:20 Data 02/14/23 00:46 02/14/23 00:46 Micro: Microbiology 02/12/23 20:04 Urine Culture - Preliminary Urine,Clean Catch 02/14/23 06:30 Occult Blood (FIT) - Final Stool Routine Collection A&P Assessment and plan (1) Atrial fibrillation with rapid ventricular response: (2) Dementia: (3) UGIB (upper gastrointestinal bleed): (4) Fracture of distal end of humerus: Qualifiers: Encounter type: initial encounter Fracture alignment: nondisplaced Fracture type: closed Laterality: left (5) Sepsis: (6) NSTEMI (non-ST elevated myocardial infarction): (7) MIKEY (acute kidney injury): (8) Small bowel obstruction: (9) Aspiration pneumonia: (10) Hypoxia: (11) Lactic acidosis: (12) Septic shock: (13) Altered mental status: (14) Protein calorie malnutrition: (15) Physical deconditioning: (16) Recurrent aspiration events: (17) Aspiration pneumonitis: (18) Acute respiratory distress: (19) Bronchospasm: (20) Acute basilic vein thrombosis: Plan Pulmonary embolism -Currently on 2 to 3 L -Monitor respiratory status closely -Currently on heparin drip -Monitor hemoglobin closely Acute basilic vein thrombosis -Currently on heparin drip -PICC line removed History of upper GI bleed, now concern for lower GI bleed given Hemoccult positive stools -Early in her admission patient was on pressors, with hematemesis -Concerns for upper GI bleed, anticoagulation was on hold -However now she has pulmonary emboli, basilic vein thrombus and has to be placed on anticoagulation -Hand her Hemoccult is positive for blood -Hemoglobin is stable at 11.2 -No recurrent bloody or black stools on examination, no hemodynamic compromise no recurrent hematemesis -This is certainly a very difficult to situation on the one hand she has a risk of morbidity and mortality associate with worsening pulmonary emboli, basilic vein thrombosis but on the other hand she has morbidity mortality associate with a GI bleed -The other workaround would be an IVC filter but she has now an upper extremity DVT that also has a risk of embolization certainly the IVC filter could prevent further embolization from lower DVTs, but it would not take care of the upper DVT -This is certainly a very difficult situation -For now she is tolerating a heparin drip, will monitor hemoglobin -We will have to monitor closely in CICU A-fib with RVR -Converted back to normal sinus rhythm -Continue amiodarone drip, due to concerns for conversion back to A-fib with RVR -Once NG tube is placed we will start her on p.o. medications Acute respiratory distress, likely secondary to bronchospasm, pulmonary embolism, currently resolved -Improved with nebulizers, 2 g of mag -Continue DuoNebs as needed, respiratory therapy eval, monitor respiratory status closely -Currently resting comfortably, equal breath sounds bilaterally, no nasal flaring, no intercostal retractions, no tachypnea, on 3 L Altered mental status, improving -Persistent confusion could be due to underlying dementia, could be ICU syndrome, persistent encephalopathy due to metabolic, aspiration pneumonia -With underlying dementia -We will monitor closely -Neurochecks, aspiration precautions High-grade bowel obstruction CT scan -CT scan of the abdomen pelvis shows high-grade small bowel obstruction with transition point in the mid abdomen possibly due to internal hernia -Will place NG tube -Spoke to general surgery, will conservatively manage, but there is a significant likelihood that she will need surgical intervention which will carry a significant morbidity and mortality given her complications as noted Plan -Currently n.p.o. due to high aspiration risk -Concerns for fluid overload, hold off on fluid therapy -Serial abdominal exams -General surgery consulted -NG tube order placed -Continue speech therapy eval Aspiration pneumonia, continues to have leukocytosis up to 39,000 afebrile overnight -Continues to have evidence of aspiration pneumonitis, aspiration pneumonia due to elevated white count -Given patient's initial septic shock, clinical presentation -Given patient small bowel obstruction, concerns for aspiration event -Seen on chest x-ray Mild right perihilar and right basilar pneumonia. Plan -Continue to monitor respiratory status closely -Follow blood cultures -Keep n.p.o., aspiration precautions -Broaden antibiotic coverage to Primaxin, vancomycin -Repeat blood cultures pending Septic shock -Currently off Levophed -Likely combination of sepsis from aspiration pneumonia, and from Cardizem -Continue to monitor Lactic acidosis, resolved A-fib with RVR Episodes of hematemesis -Currently on anticoagulation due to basilic vein thrombosis we will start anticoagulation heparin drip -Monitor for for hematemesis, her hemoglobin -Zofran for nausea -Monitor hemoglobin -Protonix, NSTEMI -Likely supply demand ischemia from sepsis as above, atrial fibrillation -LV systolic function is normal with EF of 55 to 60%. ?Grade 1 diastolic dysfunction ?Mild mitral regurgitation ?Mild aortic stenosis.? Mild aortic regurgitation ?Mild tricuspid regurgitation ?Moderate pulmonary hypertension ?Mild pulmonic regurgitation ?No comparison studies are available Distal humeral fracture, conservative management Hypoxia, continue oxygen as above History of diabetes, A1c, low-dose sliding scale Physical deconditioning PT OT Protein calorie malnutrition,, moderate, on examination has peripheral muscle wa sting, temporal muscle wasting PICC line placed, for peripheral nutrition Plan for today on amiodarone drip, on heparin drip, monitor hemoglobin, monitor hematemesis, spoke to general surgery, spoke to nursing staff, place NG tube, CT of the chest CT angiogram of the chest was ordered, confirmed pulmonary embolism, she is already on a heparin drip for PICC line associated DVT -She also has radiographic evidence of renal neoplasm -CT of the abdomen did show concerns for high-grade bowel obstruction, with transition point, with internal hernia -Spoke to V RADS -Spoke to general surgery, NG tube order placed -Spoke to nursing staff -My concern is is that her stools are positive for blood, and she has had hematemesis earlier on in in her admission, I am quite concerned for the risk of GI bleed, and hematemesis, will have to watch her quite closely, -Spoke to general surgery, concerns for high-grade bowel obstruction, she might require surgery, will continue to monitor, if she does need surgery to high risk, especially as she has pulmonary emboli, high risk of morbidity mortality, especially as anticoagulation will have to be held -We will need to discuss with patient's guardian of the state -PEG tube placement has been delayed for now -Hemoglobin 11.2 -Remains on amiodarone drip, normal sinus rhythm -On heparin drip Attestations Medical Necessity Statement*: Patient requires hospitalization for pulmonary embolism, upper extremity DVT, high-grade bowel obstruction, Coding Level of Care Code Critical Care >/= 30 minutes Critical care time (in minutes): 60 The high probability of a clinically significant, sudden or life threatening deterioration, as referenced in this documentation, required my full and direct attention, intervention and personal management. The critical care time shown is in addition to time spent performing any reported separately billable procedures and includes the following: [x] Data and vital sign review and interpretation [x ] Patient assessment, examination and intervention [x] Medication orders and management [x] Patient/Family updates as able [x] Care Coordination and Documentation. Diagnoses Atrial fibrillation with rapid ventricular response I48.91 Dementia F03.90 UGIB (upper gastrointestinal bleed) K92.2 Fracture of distal end of humerus S42.409A Encounter type: initial encounter Fracture alignment: nondisplaced Fracture type: closed Laterality: left Sepsis A41.9 NSTEMI (non-ST elevated myocardial infarction) I21.4 MIKEY (acute kidney injury) N17.9 Small bowel obstruction K56.609 Aspiration pneumonia J69.0 Hypoxia R09.02 Lactic acidosis E87.20 Septic shock A41.9; R65.21 Altered mental status R41.82 Protein calorie malnutrition E46 Physical deconditioning R53.81 Recurrent aspiration events Aspiration pneumonitis J69.0 Acute respiratory distress R06.03 Bronchospasm J98.01 Acute basilic vein thrombosis I82.619
[2023-02-14] MEDS: OLANZapine 5 mg TABLET PO (20:25)
[2023-02-14] MEDS: acetaminophen 325 mg Tablet 650 MG PO (20:25)
[2023-02-14] MEDS: simethicone 80 mg Chew 160 MG PO (20:25)
[2023-02-14] MEDS: heparin drip 25,000 UNIT/500 ML PREMIX 22 UNIT IV (20:52)
[2023-02-14 21:07] LABS: Glucose Point of Care 140 mg/dL (70-110)
[2023-02-14 22:21] LABS: Partial Thromboplastin Time 52.9 SECONDS (23.9-36.7)
[2023-02-14] MEDS: LORazepam 2 mg/mL INJ 1 mL 0.5 MG IVP (23:35)
[2023-02-15] VITALS (19 sets, daily range): BP systolic 100–175; BP diastolic 50–124; PULSE 67–97; RESP 16–39; TEMP 36.6–37.8; O2SAT 92–99; BMI 26.7
--- NOTE | 2023-02-15 00:31 | PC.NURSE ---
Made aware the patient on a heparin gtt with NG tube drainage turning from green to brownish red. wanted a stool for occult blood but made her aware that the patient already had a positive occult blood that was sent 02/14 and that was aware of the positive occult blood. No further orders at this time. The patients vital signs remain stable, will continue to monitor.
[2023-02-15] MEDS: acetaminophen 325 mg Tablet 650 MG PO (03:52)
[2023-02-15] MEDS: metoprolol tartrate 25 mg Tablet PO (04:00)
[2023-02-15 05:08] LABS: Basophils # 0.2 10^3/uL (0.0-0.1); Basophils % 0.5 %; Eosinophils % 2.8 %; Hematocrit 35.5 % (37.0-47.0); Hemoglobin 10.8 g/dL (11.5-15.3); Lymphocytes % 5.6 %; Mean Corpuscular HGB Conc 30.4 g/dL (30.0-36.0); Mean Platelet Volume 10.4 fL (7.4-10.4); Monocytes # 2.6 10^3/uL (0.2-0.9); Monocytes % 7.6 %; Neutrophils # 28.01 10^3/uL (1.8-7.7); Neutrophils % 80.2 %; Nucleated Red Blood Cells % 0 %; Platelet Count 290 10^3/cmm (130-400); Red Blood Count 3.86 10^6/uL (4.1-5.3); Red Cell Distribution Width 13.8 % (12.1-15.1)
[2023-02-15 05:29] LABS: Alanine Aminotransferase 27 U/L (0-33); Albumin Level 2.8 g/dL (3.5-5.2); Alkaline Phosphatase 71 U/L (35-105); Anion Gap 13.5 (5-19); Aspartate Amino Transferase 41 U/L (0-32); Blood Urea Nitrogen 13 mg/dL (8-23); C Reactive Protein 63.1 mg/L (0.0-4.9); Calcium 8.3 mg/dL (8.5-10.5); Carbon Dioxide 26 mmol/L (22-29); Chloride 104 mmol/L (98-107); Globulin 3.1 g/dL (1.3-4.6); Glucose 121 mg/dL (65-115); Magnesium 2.2 mg/dL (1.7-2.3); Osmolality Calculated 289 mOsm/kg (285-295); Phosphorus 2.6 mg/dL (2.5-4.5); Potassium 4.5 mmol/L (3.5-5.1); Sodium 139 mmol/L (136-145); Total Bilirubin 1.2 mg/dL (0.15-1.2); Total Protein 5.9 g/dL (6.6-8.7)
[2023-02-15 05:31] LABS: Partial Thromboplastin Time 92.9 SECONDS (23.9-36.7)
[2023-02-15 05:40] LABS: NT Pro B Type Natriuretic Pept 852 pg/mL (0-450)
--- NOTE | 2023-02-15 06:00 | XRR_ITS ---
PROCEDURE INFORMATION: Exam: XR Abdomen Exam date and time: 02/15/2023 5:18 AM Age: 87 years old Clinical indication: Other: Small bowel obstruction; Additional info: Sbo TECHNIQUE: Imaging protocol: Radiologic exam of the abdomen. Views: Frontal supine view of the abdomen. 1 View. COMPARISON: CR XR abdomen min 2V [id number] 02/11/2023 7:17 AM FINDINGS: Tubes, catheters and devices: An enteric catheter is noted with its tip projected over the left upper quadrant. Gastrointestinal tract: There are dilated loops of small bowel throughout the abdomen compatible with obstruction. High density in the pelvis may represent retained enteric contrast. Bones/joints: The bones are osteopenic with degenerative change. XR/XR KUB portable [id number] IMPRESSION: Persistent small bowel obstruction.
[2023-02-15 06:24] LABS: Glucose Point of Care 127 mg/dL (70-110)
[2023-02-15] MEDS: budesonide 0.5 mg/2 mL Neb INHALATION (08:06)
[2023-02-15] MEDS: ipratropium-albuterol 3 mL Neb INHALATION ×3 (08:06→16:26)
[2023-02-15] MEDS: meropenem 1,000 MG in sodium chloride 0.9% (plus) 50 ML 100 MG IV (09:18)
[2023-02-15] MEDS: vancomycin 750 MG in sodium chloride 0.9% 250 ML 250 MG IV (09:19)
[2023-02-15] MEDS: nystatin powder 15 gm Btl 1 APPLIC TOPICAL (09:20)
--- NOTE | 2023-02-15 09:41 | PC.SOCIAL ---
IMM IMM updated with patient's guardian Luciano Batista. Verbalized an understanding. Initialled, dated, timed, and placed in chart.
[2023-02-15] MEDS: morphine 4 mg/mL SDV 1 mL 1 MG IVP (11:16)
[2023-02-15 12:14] LABS: Partial Thromboplastin Time 50.1 SECONDS (23.9-36.7)
--- NOTE | 2023-02-15 17:26 | P.PN_ITS ---
Subjective Subjective: - Patient was examined multiple times throughout the morning in the afternoon -Examined early in the morning, she sitting up in a chair alert to person, not to place, not to time she is able to smile for me able to squeeze my fingers -She has an NG tube in place roughly 1 L output in the last 24 hours -Abdomen soft, distended, decreased bowel sounds, evidence of high-grade bowel obstruction -Currently on 3 L she is on a heparin drip for her pulmonary emboli, and her upper extremity DVT -Remains on amiodarone -Given her elevated white blood cell count, her high NG tube output I am highly suspicious that she has been aspirating developing aspiration pneumonia, aspiration pneumonitis -I had a long and detailed discussion with general surgery about options yesterday and again today -Given her CT scan findings of high-grade bowel obstruction, concern for internal hernia, and then we have managed this conservatively and medically for the last 9 days if she continues to have recurrent or a bowel obstruction she is likely going to need surgical correction -Surgery in her given her pulmonary emboli carry significant surgical risk, increased morbidity and mortality -Especially as we need to hold heparin before surgery and potentially after surgery given her recent pulm antibiotic carry significant morbidity and mortality -And given that she is DNR/DNI, the surgery itself would carry significant morbidity and mortality, given her PE and her current status or nutrition status, her aspiration pneumonia, aspiration pneumonitis her elevated white count -And after surgery the wound healing, the prolonged n.p.o., the feeding status, she likely will need a PEG tube artificial fleeting -Given her respiratory status and very worried that she would likely require prolonged mechanical ventilation after surgery and she is DNR/DNI -Given her aspiration pneumonia aspiration pneumonitis elevated white count she has a high risk of sepsis, septicemia -Currently I am quite worried about her risk of sepsis, septic shock, given elevated white count, her current condition, and that she is already been on Levophed for sepsis septic shock sec to aspiration pneumonia secondary to a bowel obstruction aspiration -She r has been having issues with A-fib which will continue to be an issue I am worried about the cardiac stress, her high risk of cardiac arrest, cardiac arrhythmia during and after her surgery -Currently she has severe dementia she is alert to person, not to place, not to time she can follow commands such as smiling for me, squeezing fingers but she does not carry out conversations, -According to nursing staff all she has been asking for his NG tube to be removed she does not want to be in the hospital, she tells nursing staff and she wants to have fried chicken -She has already failed conservative intervention now twice -Spoke to surgery in detail -But certainly surgery is an option if her healthcare power of trade mark attorney is willing to accept the risks -After discussing with general surgery, all options, I discussed this with patient's healthcare power of trade mark attorney Luciano Valdez who is her public guardian -I discussed all options, including comfort care and hospice versus pursuing medical intervention versus surgical intervention -Discussed our concerns in detail as above -He said that he was going to discuss with patient's mcc, discussed with nursing staff -I met with Luciano Valdez the evening of 02/15/2023, with nursing staff present roughly at 4:30 PM, discussed everything as above, -After discussing the risk and benefits of all options, he voiced understanding, all questions answered, agreed to proceed with hospice and comfort care -He tells me that she went well live like this, he just wants her to be comfortable for us to ease her pain ease her suffering and allow her to pass away comfortably, and allow her to leave the remaining days of her life being comfortable, -Spoke to nursing staff in detail, will place comfort care orders -Pursuing comfort care Vitals/I&O/Wt Last Vital Signs Temp 98.0 F 02/15/23 07:38 Pulse 82 02/15/23 16:32 Resp 16 02/15/23 16:26 BP 144/50 02/15/23 14:55 Pulse Ox 92 02/15/23 16:26 O2 Del Method Room Air 02/15/23 16:26 O2 Flow Rate 3 02/15/23 11:34 02/15/23 02/15/23 02/15/23 06:59 14:59 22:59 Intake Total 275.6 / 1882.547 300 / 300 Output Total 675 / 1340 1025 / 1025 Balance -399.4 / 542.547 -725 / -725 Weight last 48 hrs Weight 64.183 kg Weight 64.183 kg Weight 67.784 kg Weight 67.784 kg Weight 63.645 kg Physical Exam Const: COMMON NORMALS: no acute distress EXAM LIMITATIONS: altered mental status ORIENTATION/CONSCIOUSNESS: Yes awake, Yes oriented to person and Yes confused; not oriented to place and not oriented to time Resp: COMMON NORMALS: normal respiratory effort, No retractions and No use of accessory muscles AUSCULTATION: wheezes OTHER: Tachypnea rr20 Cardio: COMMON NORMALS: regular rate, regular rhythm, S1 normal heart sound present and S2 normal heart sound present RATE: regular rate RHYTHM: regular rhythm HEART SOUNDS: S1 normal heart sound present and S2 normal heart sound present GI: OTHER: Abdomen soft, distended, no guarding, no rebound, no rigidity, today she does have diffuse tenderness, no bowel sounds heard Extremity: COMMON NORMALS: no pedal edema Neuro: SENSORIUM/ORIENTATION: Yes oriented to person, No oriented to place and No oriented to time Urinary Catheter Management: Nelson: Cath Placed During This Visit: yes Reason for Continuing Indwelling Catheter: Acute Urinary Retention or Obstruction Urinary Catheter Date of Insertion: 02/07/23 Urinary Catheter Time of Insertion: 00:20 Data 02/15/23 04:57 02/15/23 04:57 Micro: Microbiology 02/12/23 20:04 Urine Culture - Final Urine,Clean Catch A&P Assessment and plan (1) Atrial fibrillation with rapid ventricular response: (2) Dementia: (3) UGIB (upper gastrointestinal bleed): (4) Fracture of distal end of humerus: Qualifiers: Encounter type: initial encounter Fracture alignment: nondisplaced Fracture type: closed Laterality: left (5) Sepsis: (6) NSTEMI (non-ST elevated myocardial infarction): (7) MIKEY (acute kidney injury): (8) Small bowel obstruction: (9) Aspiration pneumonia: (10) Hypoxia: (11) Lactic acidosis: (12) Septic shock: (13) Altered mental status: (14) Protein calorie malnutrition: (15) Physical deconditioning: (16) Recurrent aspiration events: (17) Aspiration pneumonitis: (18) Acute respiratory distress: (19) Bronchospasm: (20) Acute basilic vein thrombosis: (21) Need for comfort care: (22) Goals of care, counseling/discussion: Plan Proceeding with comfort care, comfort care orders placed Pulmonary embolism -Currently on 2 to 3 L -Monitor respiratory status closely -Currently on heparin drip -Monitor hemoglobin closely Acute basilic vein thrombosis -Currently on heparin drip -PICC line removed History of upper GI bleed, now concern for lower GI bleed given Hemoccult positive stools -Early in her admission patient was on pressors, with hematemesis -Concerns for upper GI bleed, anticoagulation was on hold -However now she has pulmonary emboli, basilic vein thrombus and has to be placed on anticoagulation -Hand her Hemoccult is positive for blood -Hemoglobin is stable at 11.2 -No recurrent bloody or black stools on examination, no hemodynamic compromise no recurrent hematemesis -This is certainly a very difficult to situation on the one hand she has a risk of morbidity and mortality associate with worsening pulmonary emboli, basilic vein thrombosis but on the other hand she has morbidity mortality associate with a GI bleed -The other workaround would be an IVC filter but she has now an upper extremity DVT that also has a risk of embolization certainly the IVC filter could prevent further embolization from lower DVTs, but it would not take care of the upper DVT -This is certainly a very difficult situation -For now she is tolerating a heparin drip, will monitor hemoglobin -We will have to monitor closely in CICU A-fib with RVR -Converted back to normal sinus rhythm -Continue amiodarone drip, due to concerns for conversion back to A-fib with RVR -Once NG tube is placed we will start her on p.o. medications Acute respiratory distress, likely secondary to bronchospasm, pulmonary embolism, currently resolved -Improved with nebulizers, 2 g of mag -Continue DuoNebs as needed, respiratory therapy eval, monitor respiratory status closely -Currently resting comfortably, equal breath sounds bilaterally, no nasal flaring, no intercostal retractions, no tachypnea, on 3 L Altered mental status, improving -Persistent confusion could be due to underlying dementia, could be ICU syndrome, persistent encephalopathy due to metabolic, aspiration pneumonia -With underlying dementia -We will monitor closely -Neurochecks, aspiration precautions High-grade bowel obstruction CT scan -CT scan of the abdomen pelvis shows high-grade small bowel obstruction with transition point in the mid abdomen possibly due to internal hernia -Will place NG tube -Spoke to general surgery, will conservatively manage, but there is a significant likelihood that she will need surgical intervention which will carry a significant morbidity and mortality given her complications as noted Plan -Currently n.p.o. due to high aspiration risk -Concerns for fluid overload, hold off on fluid therapy -Serial abdominal exams -General surgery consulted -NG tube order placed -Continue speech therapy eval Aspiration pneumonia, continues to have leukocytosis up to 39,000 afebrile overnight -Continues to have evidence of aspiration pneumonitis, aspiration pneumonia due to elevated white count -Given patient's initial septic shock, clinical presentation -Given patient small bowel obstruction, concerns for aspiration event -Seen on chest x-ray Mild right perihilar and right basilar pneumonia. Plan -Continue to monitor respiratory status closely -Follow blood cultures -Keep n.p.o., aspiration precautions -Broaden antibiotic coverage to Primaxin, vancomycin -Repeat blood cultures pending Septic shock -Currently off Levophed -Likely combination of sepsis from aspiration pneumonia, and from Cardizem -Continue to monitor Lactic acidosis, resolved A-fib with RVR Episodes of hematemesis -Currently on anticoagulation due to basilic vein thrombosis we will start anticoagulation heparin drip -Monitor for for hematemesis, her hemoglobin -Zofran for nausea -Monitor hemoglobin -Protonix, NSTEMI -Likely supply demand ischemia from sepsis as above, atrial fibrillation -LV systolic function is normal with EF of 55 to 60%. ?Grade 1 diastolic dysfunction ?Mild mitral regurgitation ?Mild aortic stenosis.? Mild aortic regurgitation ?Mild tricuspid regurgitation ?Moderate pulmonary hypertension ?Mild pulmonic regurgitation ?No comparison studies are available Distal humeral fracture, conservative management Hypoxia, continue oxygen as above History of diabetes, A1c, low-dose sliding scale Physical deconditioning PT OT Protein calorie malnutrition,, moderate, on examination has peripheral muscle wasting, temporal muscle wasting PICC line placed, for peripheral nutrition Plan for today, currently on heparin drip, amiodarone drip, NG tube in place, spoke to surgery, spoke to nursing staff, spoke to Luciano Valdez Patient was examined multiple times throughout the morning in the afternoon -Examined early in the morning, she sitting up in a chair alert to person, not to place, not to time she is able to smile for me able to squeeze my fingers -She has an NG tube in place roughly 1 L output in the last 24 hours -Abdomen soft, distended, decreased bowel sounds, evidence of high-grade bowel obstruction -Currently on 3 L she is on a heparin drip for her pulmonary emboli, and her upper extremity DVT -Remains on amiodarone -Given her elevated white blood cell count, her high NG tube output I am highly suspicious that she has been aspirating developing aspiration pneumonia, aspiration pneumonitis -I had a long and detailed discussion with general surgery about options yesterday and again today -Given her CT scan findings of high-grade bowel obstruction, concern for internal hernia, and then we have managed this conservatively and medically for the last 9 days if she continues to have recurrent or a bowel obstruction she is likely going to need surgical correction -Surgery in her given her pulmonary emboli carry significant surgical risk, increased morbidity and mortality -Especially as we need to hold heparin before surgery and potentially after surg william given her recent pulm antibiotic carry significant morbidity and mortality -And given that she is DNR/DNI, the surgery itself would carry significant morbidity and mortality, given her PE and her current status or nutrition status, her aspiration pneumonia, aspiration pneumonitis her elevated white count -And after surgery the wound healing, the prolonged n.p.o., the feeding status, she likely will need a PEG tube artificial fleeting -Given her respiratory status and very worried that she would likely require prolonged mechanical ventilation after surgery and she is DNR/DNI -Given her aspiration pneumonia aspiration pneumonitis elevated white count she has a high risk of sepsis, septicemia -Currently I am quite worried about her risk of sepsis, septic shock, given elevated white count, her current condition, and that she is already been on Levophed for sepsis septic shock sec to aspiration pneumonia secondary to a bowel obstruction aspiration -She r has been having issues with A-fib which will continue to be an issue I am worried about the cardiac stress, her high risk of cardiac arrest, cardiac arrhythmia during and after her surgery -Currently she has severe dementia she is alert to person, not to place, not to time she can follow commands such as smiling for me, squeezing fingers but she does not carry out conversations, -According to nursing staff all she has been asking for his NG tube to be removed she does not want to be in the hospital, she tells nursing staff and she wants to have fried chicken -She has already failed conservative intervention now twice -Spoke to surgery in detail -But certainly surgery is an option if her healthcare power of trade mark attorney is will ing to accept the risks -After discussing with general surgery, all options, I discussed this with donald zavala's healthcare power of trade mark attorney Luciano Valdez who is her public guardian -I discussed all options, including comfort care and hospice versus pursuing medical intervention versus surgical intervention -Discussed our concerns in detail as above -He said that he was going to discuss with patient's mcc, discussed with nursing staff -I met with Luciano Gascauitt the evening of 02/15/2023, with nursing staff present roughly at 4:30 PM, discussed everything as above, -After discussing the risk and benefits of all options, he voiced understanding, all questions answered, agreed to proceed with hospice and comfort care -He tells me that she went well live like this, he just wants her to be comf ortable for us to ease her pain ease her suffering and allow her to pass away comfortably, and allow her to leave the remaining days of her life being comfortable, -Spoke to nursing staff in detail, will place comfort care orders -Pursuing comfort care Attestations Medical Necessity Statement*: Patient requires hospitalization for comfort care Coding Level of Care Code 26667 High Time for a total of 90 minutes, includes reviewing past or interval history, examining/interviewing patient, placing orders, counseling patient/family/other support, updating patient/family/other support, discussing plan of care with staff, communicating with other healthcare providers, documenting encounter and coordinating care Diagnoses Atrial fibrillation with rapid ventricular response I48.91 Dementia F03.90 UGIB (upper gastrointestinal bleed) K92.2 Fracture of distal end of humerus S42.409A Encounter type: initial encounter Fracture alignment: nondisplaced Fracture type: closed Laterality: left Sepsis A41.9 NSTEMI (non-ST elevated myocardial infarction) I21.4 MIKEY (acute kidney injury) N17.9 Small bowel obstruction K56.609 Aspiration pneumonia J69.0 Hypoxia R09.02 Lactic acidosis E87.20 Septic shock A41.9; R65.21 Altered mental status R41.82 Protein calorie malnutrition E46 Physical deconditioning R53.81 Recurrent aspiration events Aspiration pneumonitis J69.0 Acute respiratory distress R06.03 Bronchospasm J98.01 Acute basilic vein thrombosis I82.619 Need for comfort care Goals of care, counseling/discussion Z71.89
[2023-02-15] MEDS: morphine 4 mg/mL SDV 1 mL 0.5 MG IVP ×2 (19:37→19:52)
[2023-02-15] MEDS: morphine 10 mg/0.5 mL oral liq UD 2 MG SUBLINGUAL (20:32)
[2023-02-15] MEDS: LORazepam 2 mg/mL INJ 1 mL 1 MG IVP (21:14)
[2023-02-16 03:14] VITALS: RESP 14
[2023-02-16] MEDS: morphine 4 mg/mL SDV 1 mL 0.5 MG IVP (03:14)
[2023-02-16] MEDS: LORazepam 2 mg/mL INJ 1 mL 0.5 MG IVP (03:14)
[2023-02-16 06:00] VITALS: TEMP 36.8
[2023-02-16] MEDS: morphine 10 mg/0.5 mL oral liq UD 2 MG SUBLINGUAL ×4 (06:06→21:31)
[2023-02-16 10:00] VITALS: BMI 28.1
--- NOTE | 2023-02-16 12:08 | PM.PN ---
Subjective Subjective: Patient was seen this morning she is not responsive, she does not respond to her name, overnight to nursing staff she has become less responsive, crackles on exam tachypneic, tachycardic Vitals/I&O/Wt Last Vital Signs Temp 98.2 F 02/16/23 06:00 Pulse 87 02/15/23 20:00 Resp 14 02/16/23 03:14 BP 175/105 02/15/23 20:00 Pulse Ox 92 02/15/23 20:00 O2 Del Method Room Air 02/16/23 09:19 O2 Flow Rate 3 02/15/23 11:34 02/15/23 02/16/23 02/16/23 22:59 06:59 14:59 Intake Total 888.367 / 1188.367 Output Total 300 / 1325 100 / 1425 Balance 588.367 / -136.633 -100 / -236.633 Weight last 48 hrs Weight 67.585 kg Weight 68.039 kg Weight 64.183 kg Weight 64.183 kg Physical Exam Const: COMMON NORMALS: no acute distress Resp: COMMON NORMALS: normal respiratory effort, No retractions and No use of accessory muscles AUSCULTATION: crackles and wheezes Cardio: COMMON NORMALS: S1 normal heart sound present and S2 normal heart sound present RATE: tachycardic HEART SOUNDS: S1 normal heart sound present and S2 normal heart sound present GI: COMMON NORMALS: Normal to inspection, nondistended, normoactive bowel sounds present and non-tender Extremity: COMMON NORMALS: no pedal edema Urinary Catheter Management: Nelson: Cath Placed During This Visit: yes Reason for Continuing Indwelling Catheter: Acute Urinary Retention or Obstruction Urinary Catheter Date of Insertion: 02/07/23 Urinary Catheter Time of Insertion: 00:20 Data 02/15/23 04:57 02/15/23 04:57 Micro: Microbiology 02/12/23 20:04 Urine Culture - Final Urine,Clean Catch A&P Assessment and plan (1) Goals of care, counseling/discussion: (2) Need for comfort care: (3) UGIB (upper gastrointestinal bleed): (4) Fracture of distal end of humerus: Qualifiers: Encounter type: initial encounter Fracture alignment: nondisplaced Fracture type: closed Laterality: left (5) Sepsis: (6) NSTEMI (non-ST elevated myocardial infarction): (7) MIKEY (acute kidney injury): (8) Small bowel obstruction: (9) Aspiration pneumonia: (10) Hypoxia: (11) Lactic acidosis: (12) Septic shock: (13) Altered mental status: (14) Protein calorie malnutrition: (15) Physical deconditioning: (16) Recurrent aspiration events: (17) Aspiration pneumonitis: (18) Acute respiratory distress: (19) Bronchospasm: (20) Acute basilic vein thrombosis: Plan Currently on inpatient comfort care Pulmonary embolism -Currently on 2 to 3 L -Monitor respiratory status closely -Currently on heparin drip -Monitor hemoglobin closely Acute basilic vein thrombosis -Currently on heparin drip -PICC line removed History of upper GI bleed, now concern for lower GI bleed given Hemoccult positive stools -Early in her admission patient was on pressors, with hematemesis -Concerns for upper GI bleed, anticoagulation was on hold -However now she has pulmonary emboli, basilic vein thrombus and has to be placed on anticoagulation -Hand her Hemoccult is positive for blood -Hemoglobin is stable at 11.2 -No recurrent bloody or black stools on examination, no hemodynamic compromise no recurrent hematemesis -This is certainly a very difficult to situation on the one hand she has a risk of morbidity and mortality associate with worsening pulmonary emboli, basilic vein thrombosis but on the other hand she has morbidity mortality associate with a GI bleed -The other workaround would be an IVC filter but she has now an upper extremity DVT that also has a risk of embolization certainly the IVC filter could prevent further embolization from lower DVTs, but it would not take care of the upper DVT -This is certainly a very difficult situation -For now she is tolerating a heparin drip, will monitor hemoglobin -We will have to monitor closely in CICU A-fib with RVR -Converted back to normal sinus rhythm -Continue amiodarone drip, due to concerns for conversion back to A-fib with RVR -Once NG tube is placed we will start her on p.o. medications Acute respiratory distress, likely secondary to bronchospasm, pulmonary embolism, currently resolved -Improved with nebulizers, 2 g of mag -Continue DuoNebs as needed, respiratory therapy eval, monitor respiratory status closely -Currently resting comfortably, equal breath sounds bilaterally, no nasal flaring, no intercostal retractions, no tachypnea, on 3 L Altered mental status, improving -Persistent confusion could be due to underlying dementia, could be ICU syndrome, persistent encephalopathy due to metabolic, aspiration pneumonia -With underlying dementia -We will monitor closely -Neurochecks, aspiration precautions High-grade bowel obstruction CT scan -CT scan of the abdomen pelvis shows high-grade small bowel obstruction with transition point in the mid abdomen possibly due to internal hernia -Will place NG tube -Spoke to general surgery, will conservatively manage, but there is a significant likelihood that she will need surgical intervention which will carry a significant morbidity and mortality given her complications as noted Plan -Currently n.p.o. due to high aspiration risk -Concerns for fluid overload, hold off on fluid therapy -Serial abdominal exams -General surgery consulted -NG tube order placed -Continue speech therapy eval Aspiration pneumonia, continues to have leukocytosis up to 39,000 afebrile overnight -Continues to have evidence of aspiration pneumonitis, aspiration pneumonia due to elevated white count -Given patient's initial septic shock, clinical presentation -Given patient small bowel obstruction, concerns for aspiration event -Seen on chest x-ray Mild right perihilar and right basilar pneumonia. Plan -Continue to monitor respiratory status closely -Follow blood cultures -Keep n.p.o., aspiration precautions -Broaden antibiotic coverage to Primaxin, vancomycin -Repeat blood cultures pending Septic shock -Currently off Levophed -Likely combination of sepsis from aspiration pneumonia, and from Cardizem -Continue to monitor Lactic acidosis, resolved A-fib with RVR Episodes of hematemesis -Currently on anticoagulation due to basilic vein thrombosis we will start anticoagulation heparin drip -Monitor for for hematemesis, her hemoglobin -Zofran for nausea -Monitor hemoglobin -Protonix, NSTEMI -Likely supply demand ischemia from sepsis as above, atrial fibrillation -LV systolic function is normal with EF of 55 to 60%. ?Grade 1 diastolic dysfunction ?Mild mitral regurgitation ?Mild aortic stenosis.? Mild aortic regurgitation ?Mild tricuspid regurgitation ?Moderate pulmonary hypertension ?Mild pulmonic regurgitation ?No comparison studies are available Distal humeral fracture, conservative management Hypoxia, continue oxygen as above History of diabetes, A1c, low-dose sliding scale Physical deconditioning PT OT Protein calorie malnutrition,, moderate, on examination has peripheral muscle wasting, temporal muscle wasting PICC line placed, for peripheral nutrition Plan for today, currently on heparin drip, amiodarone drip, NG tube in place, spoke to surgery, spoke to nursing staff, spoke to Luciano Valdez Patient was examined multiple times throughout the morning in the afternoon -Examined early in the morning, she sitting up in a chair alert to person, not to place, not to time she is able to smile for me able to squeeze my fingers -She has an NG tube in place roughly 1 L output in the last 24 hours -Abdomen soft, distended, decreased bowel sounds, evidence of high-grade bowel obstruction -Currently on 3 L she is on a heparin drip for her pulmonary emboli, and her upper extremity DVT -Remains on amiodarone -Given her elevated white blood cell count, her high NG tube output I am highly suspicious that she has been aspirating developing aspiration pneumonia, aspiration pneumonitis -I had a long and detailed discussion with general surgery about options yesterday and again today -Given her CT scan findings of high-grade bowel obstruction, concern for internal hernia, and then we have managed this conservatively and medically for the last 9 days if she continues to have recurrent or a bowel obstruction she is likely going to need surgical correction -Surgery in her given her pulmonary emboli carry significant surgical risk, increased morbidity and mortality -Especially as we need to hold heparin before surgery and potentially after surgery given her recent pulm antibiotic carry significant morbidity and mortality -And given that she is DNR/DNI, the surgery itself would carry significant morbidity and mortality, given her PE and her current status or nutrition status, her aspiration pneumonia, aspiration pneumonitis her elevated white count -And after surgery the wound healing, the prolonged n.p.o., the feeding status, she likely will need a PEG tube artificial fleeting -Given her respiratory status and very worried that she would likely require prolonged mechanical ventilation after surgery and she is DNR/DNI -Given her aspiration pneumonia aspiration pneumonitis elevated white count she has a high risk of sepsis, septicemia -Currently I am quite worried about her risk of sepsis, septic shock, given elevated white count, her current condition, and that she is already been on Levophed for sepsis septic shock sec to aspiration pneumonia secondary to a bowel obstruction aspiration -She r has been having issues with A-fib which will continue to be an issue I am worried about the cardiac stress, her high risk of cardiac arrest, cardiac arrhythmia during and after her surgery -Currently she has severe dementia she is alert to person, not to place, not to time she can follow commands such as smiling for me, squeezing fingers but she does not carry out conversations, -According to nursing staff all she has been asking for his NG tube to be removed she does not want to be in the hospital, she tells nursing staff and she wants to have fried chicken -She has already failed conservative intervention now twice -Spoke to surgery in detail -But certainly surgery is an option if her healthcare power of associate attorney is willing to accept the risks -After discussing with general surgery, all options, I discussed this with patient's healthcare power of associate attorney Luciano Gascauitt who is her public guardian -I discussed all options, including comfort care and hospice versus pursuing medical intervention versus surgical intervention -Discussed our concerns in detail as above -He said that he was going to discuss with patient's senior care, discussed with nursing staff -I met with Luciano Valdez the evening of 02/15/2023, with nursing staff present roughly at 4:30 PM, discussed everything as above, -After discussing the risk and benefits of all options, he voiced understanding, all questions answered, agreed to proceed with hospice and comfort care -He tells me that she went well live like this, he just wants her to be comfortable for us to ease her pain ease her suffering and allow her to pass away comfortably, and allow her to leave the remaining days of her life being comfortable, -Spoke to nursing staff in detail, will place comfort care orders -Pursuing comfort care Attestations Medical Necessity Statement*: Currently requires hospitalization for inpatient comfort care Diagnoses Goals of care, counseling/discussion Z71.89 Need for comfort care UGIB (upper gastrointestinal bleed) K92.2 Fracture of distal end of humerus S42.409A Encounter type: initial encounter Fracture alignment: nondisplaced Fracture type: closed Laterality: left Sepsis A41.9 NSTEMI (non-ST elevated myocardial infarction) I21.4 MIKEY (acute kidney injury) N17.9 Small bowel obstruction K56.609 Aspiration pneumonia J69.0 Hypoxia R09.02 Lactic acidosis E87.20 Septic shock A41.9; R65.21 Altered mental status R41.82 Protein calorie malnutrition E46 Physical deconditioning R53.81 Recurrent aspiration events Aspiration pneumonitis J69.0 Acute respiratory distress R06.03 Bronchospasm J98.01 Acute basilic vein thrombosis I82.619
[2023-02-16 12:30] VITALS: BP 193/74; PULSE 93; RESP 22; TEMP 37.3
[2023-02-16] MEDS: LORazepam 2 mg/mL INJ 1 mL 1 MG IVP (17:08)
--- NOTE | 2023-02-16 21:30 | PC.NURSE ---
Patient moaning. Asked patient is she has pain. She says yes , but is unable to specify where. Patient responds with only a few intelligle words. She does answer yes/no questions such as do you want water? Oral pain medicine given.
[2023-02-16 23:27] VITALS: RESP 24; O2SAT 93
[2023-02-16] MEDS: morphine 4 mg/mL SDV 1 mL 1 MG IVP (23:27)
[2023-02-17] VITALS (10 sets, daily range): BP systolic 144–166; BP diastolic 67–79; PULSE 85–91; RESP 16–28; TEMP 36.7–38.6; O2SAT 85–97; BMI 27.4
[2023-02-17] MEDS: morphine 4 mg/mL SDV 1 mL 1 MG IVP ×4 (02:11→21:24)
[2023-02-17] MEDS: LORazepam 2 mg/mL INJ 1 mL 1 MG IVP (05:12)
--- NOTE | 2023-02-17 12:35 | PC.SOCIAL ---
IMM Updated Updated Luciano Batista, pt's guardian, on IMM. No questions voiced. Provided pt a copy. Initialed, dated, & timed copy in chart.
[2023-02-17] MEDS: acetaminophen 325 mg Tablet 650 MG PO (15:36)
--- NOTE | 2023-02-17 17:47 | PM.PN ---
Subjective Subjective: - Patient was seen this morning she is a bit more alert and awake Vitals/I&O/Wt Last Vital Signs Temp 98.5 F 02/17/23 17:23 Pulse 85 02/17/23 15:25 Resp 18 02/17/23 15:25 BP 144/67 02/17/23 15:25 Pulse Ox 94 02/17/23 15:25 O2 Del Method Nasal Cannula 02/17/23 15:25 O2 Flow Rate 3 02/15/23 11:34 02/17/23 02/17/23 02/17/23 06:59 14:59 22:59 Intake Total 120 / 120 Output Total 100 / 275 Balance -100 / -105 120 / 120 Weight last 48 hrs Weight 65.941 kg Weight 65.941 kg Weight 67.585 kg Weight 68.039 kg Physical Exam Const: COMMON NORMALS: no acute distress Resp: COMMON NORMALS: normal respiratory effort, No retractions and No use of accessory muscles AUSCULTATION: wheezes Cardio: COMMON NORMALS: regular rate, regular rhythm, S1 normal heart sound present and S2 normal heart sound present RATE: regular rate RHYTHM: regular rhythm HEART SOUNDS: S1 normal heart sound present and S2 normal heart sound present GI: COMMON NORMALS: Normal to inspection, nondistended, normoactive bowel sounds present and non-tender Urinary Catheter Management: Nelson: Cath Placed During This Visit: yes Reason for Continuing Indwelling Catheter: Accurate Measurement of Urinary Output in Critically Ill Patients Urinary Catheter Date of Insertion: 02/07/23 Urinary Catheter Time of Insertion: 00:20 Data 02/15/23 04:57 02/15/23 04:57 Micro: Microbiology 02/12/23 09:12 Blood Culture - Final Blood NO GROWTH AFTER 5 DAYS 02/12/23 09:04 Blood Culture - Final Blood NO GROWTH AFTER 5 DAYS A&P Assessment and plan (1) Goals of care, counseling/discussion: (2) Need for comfort care: (3) UGIB (upper gastrointestinal bleed): (4) Fracture of distal end of humerus: Qualifiers: Encounter type: initial encounter Fracture alignment: nondisplaced Fracture type: closed Laterality: left (5) Sepsis: (6) NSTEMI (non-ST elevated myocardial infarction): (7) MIKEY (acute kidney injury): (8) Small bowel obstruction: (9) Aspiration pneumonia: (10) Hypoxia: (11) Lactic acidosis: (12) Septic shock: (13) Altered mental status: (14) Protein calorie malnutrition: (15) Physical deconditioning: (16) Recurrent aspiration events: (17) Aspiration pneumonitis: (18) Acute respiratory distress: (19) Bronchospasm: (20) Acute basilic vein thrombosis: Plan Currently on inpatient comfort care Pulmonary embolism -Currently on 2 to 3 L -Monitor respiratory status closely -Currently on heparin drip -Monitor hemoglobin closely Acute basilic vein thrombosis -Currently on heparin drip -PICC line removed History of upper GI bleed, now concern for lower GI bleed given Hemoccult positive stools -Early in her admission patient was on pressors, with hematemesis -Concerns for upper GI bleed, anticoagulation was on hold -However now she has pulmonary emboli, basilic vein thrombus and has to be placed on anticoagulation -Hand her Hemoccult is positive for blood -Hemoglobin is stable at 11.2 -No recurrent bloody or black stools on examination, no hemodynamic compromise no recurrent hematemesis -This is certainly a very difficult to situation on the one hand she has a risk of morbidity and mortality associate with worsening pulmonary emboli, basilic vein thrombosis but on the other hand she has morbidity mortality associate with a GI bleed -The other workaround would be an IVC filter but she has now an upper extremity DVT that also has a risk of embolization certainly the IVC filter could prevent further embolization from lower DVTs, but it would not take care of the upper DVT -This is certainly a very difficult situation -For now she is tolerating a heparin drip, will monitor hemoglobin -We will have to monitor closely in CICU A-fib with RVR -Converted back to normal sinus rhythm -Continue amiodarone drip, due to concerns for conversion back to A-fib with RVR -Once NG tube is placed we will start her on p.o. medications Acute respiratory distress, likely secondary to bronchospasm, pulmonary embolism, currently resolved -Improved with nebulizers, 2 g of mag -Continue DuoNebs as needed, respiratory therapy eval, monitor respiratory status closely -Currently resting comfortably, equal breath sounds bilaterally, no nasal flaring, no intercostal retractions, no tachypnea, on 3 L Altered mental status, improving -Persistent confusion could be due to underlying dementia, could be ICU syndrome, persistent encephalopathy due to metabolic, aspiration pneumonia -With underlying dementia -We will monitor closely -Neurochecks, aspiration precautions High-grade bowel obstruction CT scan -CT scan of the abdomen pelvis shows high-grade small bowel obstruction with transition point in the mid abdomen possibly due to internal hernia -Will place NG tube -Spoke to general surgery, will conservatively manage, but there is a significant likelihood that she will need surgical intervention which will carry a significant morbidity and mortality given her complications as noted Plan -Currently n.p.o. due to high aspiration risk -Concerns for fluid overload, hold off on fluid therapy -Serial abdominal exams -General surgery consulted -NG tube order placed -Continue speech therapy eval Aspiration pneumonia, continues to have leukocytosis up to 39,000 afebrile overnight -Continues to have evidence of aspiration pneumonitis, aspiration pneumonia due to elevated white count -Given patient's initial septic shock, clinical presentation -Given patient small bowel obstruction, concerns for aspiration event -Seen on chest x-ray Mild right perihilar and right basilar pneumonia. Plan -Continue to monitor respiratory status closely -Follow blood cultures -Keep n.p.o., aspiration precautions -Broaden antibiotic coverage to Primaxin, vancomycin -Repeat blood cultures pending Septic shock -Currently off Levophed -Likely combination of sepsis from aspiration pneumonia, and from Cardizem -Continue to monitor Lactic acidosis, resolved A-fib with RVR Episodes of hematemesis -Currently on anticoagulation due to basilic vein thrombosis we will start anticoagulation heparin drip -Monitor for for hematemesis, her hemoglobin -Zofran for nausea -Monitor hemoglobin -Protonix, NSTEMI -Likely supply demand ischemia from sepsis as above, atrial fibrillation -LV systolic function is normal with EF of 55 to 60%. ?Grade 1 diastolic dysfunction ?Mild mitral regurgitation ?Mild aortic stenosis.? Mild aortic regurgitation ?Mild tricuspid regurgitation ?Moderate pulmonary hypertension ?Mild pulmonic regurgitation ?No comparison studies are available Distal humeral fracture, conservative management Hypoxia, continue oxygen as above History of diabetes, A1c, low-dose sliding scale Physical deconditioning PT OT Protein calorie malnutrition,, moderate, on examination has peripheral muscle wasting, temporal muscle wasting PICC line placed, for peripheral nutrition Plan for today, currently on heparin drip, amiodarone drip, NG tube in place, spoke to surgery, spoke to nursing staff, spoke to Luciano Valdez Patient was examined multiple times throughout the morning in the afternoon -Examined early in the morning, she sitting up in a chair alert to person, not to place, not to time she is able to smile for me able to squeeze my fingers -She has an NG tube in place roughly 1 L output in the last 24 hours -Abdomen soft, distended, decreased bowel sounds, evidence of high-grade bowel obstruction -Currently on 3 L she is on a heparin drip for her pulmonary emboli, and her upper extremity DVT -Remains on amiodarone -Given her elevated white blood cell count, her high NG tube output I am highly suspicious that she has been aspirating developing aspiration pneumonia, aspiration pneumonitis -I had a long and detailed discussion with general surgery about options yesterday and again today -Given her CT scan findings of high-grade bowel obstruction, concern for internal hernia, and then we have managed this conservatively and medically for the last 9 days if she continues to have recurrent or a bowel obstruction she is likely going to need surgical correction -Surgery in her given her pulmonary emboli carry significant surgical risk, increased morbidity and mortality -Especially as we need to hold heparin before surgery and potentially after surgery given her recent pulm antibiotic carry significant morbidity and mortality -And given that she is DNR/DNI, the surgery itself would carry significant morbidity and mortality, given her PE and her current status or nutrition status, her aspiration pneumonia, aspiration pneumonitis her elevated white count -And after surgery the wound healing, the prolonged n.p.o., the feeding status, she likely will need a PEG tube artificial fleeting -Given her respiratory status and very worried that she would likely require prolonged mechanical ventilation after surgery and she is DNR/DNI -Given her aspiration pneumonia aspiration pneumonitis elevated white count she has a high risk of sepsis, septicemia -Currently I am quite worried about her risk of sepsis, septic shock, given elevated white count, her current condition, and that she is already been on Levophed for sepsis septic shock sec to aspiration pneumonia secondary to a bowel obstruction aspiration -She r has been having issues with A-fib which will continue to be an issue I am worried about the cardiac stress, her high risk of cardiac arrest, cardiac arrhythmia during and after her surgery -Currently she has severe dementia she is alert to person, not to place, not to time she can follow commands such as smiling for me, squeezing fingers but she does not carry out conversations, -According to nursing staff all she has been asking for his NG tube to be removed she does not want to be in the hospital, she tells nursing staff and she wants to have fried chicken -She has already failed conservative intervention now twice -Spoke to surgery in detail -But certainly surgery is an option if her healthcare power of assistant prosecuting attorney is willing to accept the risks -After discussing with general surgery, all options, I discussed this with patient's healthcare power of assistant prosecuting attorney Luciano Valdez who is her public guardian -I discussed all options, including comfort care and hospice versus pursuing medical intervention versus surgical intervention -Discussed our concerns in detail as above -He said that he was going to discuss with patient's retirement, discussed with nursing staff -I met with Luciano Valdez the evening of 02/15/2023, with nursing staff present roughly at 4:30 PM, discussed everything as above, -After discussing the risk and benefits of all options, he voiced understanding, all questions answered, agreed to proceed with hospice and comfort care -He tells me that she went well live like this, he just wants her to be comfortable for us to ease her pain ease her suffering and allow her to pass away comfortably, and allow her to leave the remaining days of her life being comfortable, -Spoke to nursing staff in detail, will place comfort care orders -Pursuing comfort care Attestations Medical Necessity Statement*: Patient requires hospitalization for inpatient comfort care Diagnoses Goals of care, counseling/discussion Z71.89 Need for comfort care UGIB (upper gastrointestinal bleed) K92.2 Fracture of distal end of humerus S42.409A Encounter type: initial encounter Fracture alignment: nondisplaced Fracture type: closed Laterality: left Sepsis A41.9 NSTEMI (non-ST elevated myocardial infarction) I21.4 MIKEY (acute kidney injury) N17.9 Small bowel obstruction K56.609 Aspiration pneumonia J69.0 Hypoxia R09.02 Lactic acidosis E87.20 Septic shock A41.9; R65.21 Altered mental status R41.82 Protein calorie malnutrition E46 Physical deconditioning R53.81 Recurrent aspiration events Aspiration pneumonitis J69.0 Acute respiratory distress R06.03 Bronchospasm J98.01 Acute basilic vein thrombosis I82.619
[2023-02-18 06:00] VITALS: BMI 26.9
--- NOTE | 2023-02-18 07:34 | PC.NURSE ---
pt denies any pain when asked, she stated, I'm hot. Pt offered sips of water and soda as requested.
[2023-02-18 09:33] VITALS: BP 113/82; PULSE 117; RESP 17; TEMP 36.4; O2SAT 90
--- NOTE | 2023-02-18 14:56 | PC.NURSE ---
report called to med surg
--- NOTE | 2023-02-18 15:54 | PM.PN ---
Subjective Subjective: Patient was seen this morning she is more alert and awake, she smiles to me tells me hello, can follow some commands, continues to have diffuse crackles and wheezing on exam, intermittent tachycardia, irregular rhythm Vitals/I&O/Wt Last Vital Signs Temp 97.6 F 02/18/23 09:33 Pulse 117 H 02/18/23 09:33 Resp 17 02/18/23 09:33 BP 113/82 02/18/23 09:33 Pulse Ox 90 02/18/23 09:33 O2 Del Method Nasal Cannula 02/18/23 09:33 O2 Flow Rate 3 02/15/23 11:34 02/18/23 02/18/23 02/18/23 06:59 14:59 22:59 Intake Total 320 / 320 Balance 320 / 320 Weight last 48 hrs Weight 64.495 kg Weight 65.941 kg Weight 65.941 kg Physical Exam Const: COMMON NORMALS: no acute distress Resp: COMMON NORMALS: normal respiratory effort, No retractions and No use of accessory muscles OTHER: Wheezing and diffuse crackles on exam Cardio: COMMON NORMALS: S1 normal heart sound present and S2 normal heart sound present RATE: tachycardic RHYTHM: abnormal rhythm HEART SOUNDS: S1 normal heart sound present and S2 normal heart sound present Extremity: COMMON NORMALS: no pedal edema Urinary Catheter Management: Nelson: Cath Placed During This Visit: yes Reason for Continuing Indwelling Catheter: Hospice/Comfort/Palliative Care Urinary Catheter Date of Insertion: 02/07/23 Urinary Catheter Time of Insertion: 00:20 Data 02/15/23 04:57 02/15/23 04:57 A&P Assessment and plan (1) Goals of care, counseling/discussion: (2) Need for comfort care: (3) UGIB (upper gastrointestinal bleed): (4) Fracture of distal end of humerus: Qualifiers: Encounter type: initial encounter Fracture alignment: nondisplaced Fracture type: closed Laterality: left (5) Sepsis: (6) NSTEMI (non-ST elevated myocardial infarction): (7) MIKEY (acute kidney injury): (8) Small bowel obstruction: (9) Aspiration pneumonia: (10) Hypoxia: (11) Lactic acidosis: (12) Septic shock: (13) Altered mental status: (14) Protein calorie malnutrition: (15) Physical deconditioning: (16) Recurrent aspiration events: (17) Aspiration pneumonitis: (18) Acute respiratory distress: (19) Bronchospasm: (20) Acute basilic vein thrombosis: Plan Currently on inpatient comfort care Pulmonary embolism Acute basilic vein thrombosis - History of upper GI bleed, now concern for lower GI bleed given Hemoccult positive stools A-fib with RVR Acute respiratory distress, likely secondary to bronchospasm, pulmonary embolism, currently resolved Altered mental status, improving High-grade bowel obstruction Septic shock Lactic acidosis, resolved A-fib with RVR Episodes of hematemesis NSTEMI Distal humeral fracture, conservative management Hypoxia, continue oxygen as above History of diabetes, A1c, low-dose sliding scale Physical deconditioning PT OT Protein calorie malnutrition,, Attestations Medical Necessity Statement*: Patient requires hospitalization for inpatient comfort care Diagnoses Goals of care, counseling/discussion Z71.89 Need for comfort care UGIB (upper gastrointestinal bleed) K92.2 Fracture of distal end of humerus S42.409A Encounter type: initial encounter Fracture alignment: nondisplaced Fracture type: closed Laterality: left Sepsis A41.9 NSTEMI (non-ST elevated myocardial infarction) I21.4 MIKEY (acute kidney injury) N17.9 Small bowel obstruction K56.609 Aspiration pneumonia J69.0 Hypoxia R09.02 Lactic acidosis E87.20 Septic shock A41.9; R65.21 Altered mental status R41.82 Protein calorie malnutrition E46 Physical deconditioning R53.81 Recurrent aspiration events Aspiration pneumonitis J69.0 Acute respiratory distress R06.03 Bronchospasm J98.01 Acute basilic vein thrombosis I82.619
[2023-02-18 20:00] VITALS: BP 118/67; PULSE 120; RESP 18; TEMP 37; O2SAT 90
[2023-02-19] VITALS: BP 136/76; PULSE 82; RESP 18; TEMP 36.4; O2SAT 92
[2023-02-19] MEDS: morphine 4 mg/mL SDV 1 mL 1 MG IVP (00:49)
[2023-02-19 04:36] VITALS: BP 118/76; PULSE 100; RESP 18; TEMP 36.4; O2SAT 91
--- NOTE | 2023-02-19 15:38 | P.PN_ITS ---
Subjective Subjective: - Patient was seen this morning, she is sitting up in bed, she smiles at me she says hello to me, she is not alert to person, place or time, she can follow some commands, does not look like she is in respiratory distress, no evidence of tachypnea or tachycardia, she is smiling at me, when asked her if she is in pain she says no Vitals/I&O/Wt Last Vital Signs Temp 97.6 F 02/19/23 04:36 Pulse 100 02/19/23 04:36 Resp 18 02/19/23 04:36 BP 118/76 02/19/23 04:36 Pulse Ox 91 02/19/23 04:36 O2 Del Method Nasal Cannula 02/18/23 09:33 O2 Flow Rate 3 02/19/23 08:09 02/19/23 02/19/23 02/19/23 06:59 14:59 22:59 Intake Total 480 / 1520 480 / 480 Output Total 450 / 450 Balance 30 / 1070 480 / 480 Weight last 48 hrs Weight 63.957 kg Weight 64.495 kg Physical Exam Const: COMMON NORMALS: no acute distress ORIENTATION/CONSCIOUSNESS: Yes awake and Yes confused; not oriented to person, not oriented to place and not oriented to time Resp: COMMON NORMALS: normal respiratory effort, No retractions, No use of accessory muscles and clear to auscultation bilaterally AUSCULTATION: clear to auscultation bilaterally Cardio: COMMON NORMALS: regular rate, regular rhythm, S1 normal heart sound present and S2 normal heart sound present RATE: regular rate RHYTHM: regular rhythm HEART SOUNDS: S1 normal heart sound present and S2 normal heart sound present GI: COMMON NORMALS: Normal to inspection, nondistended, normoactive bowel sounds present and non-tender Neuro: SENSORIUM/ORIENTATION: No oriented to person, No oriented to place and No oriented to time Urinary Catheter Management: Nelson: Cath Placed During This Visit: yes Reason for Continuing Indwelling Catheter: Hospice/Comfort/Palliative Care Urinary Catheter Date of Insertion: 02/07/23 Urinary Catheter Time of Insertion: 00:20 Data 02/15/23 04:57 02/15/23 04:57 A&P Assessment and plan (1) Goals of care, counseling/discussion: (2) Need for comfort care: (3) UGIB (upper gastrointestinal bleed): (4) Fracture of distal end of humerus: Qualifiers: Encounter type: initial encounter Fracture alignment: nondisplaced Fra cture type: closed Laterality: left (5) Sepsis: (6) NSTEMI (non-ST elevated myocardial infarction): (7) MIKEY (acute kidney injury): (8) Small bowel obstruction: (9) Aspiration pneumonia: (10) Hypoxia: (11) Lactic acidosis: (12) Septic shock: (13) Altered mental status: (14) Protein calorie malnutrition: (15) Physical deconditioning: (16) Recurrent aspiration events: (17) Aspiration pneumonitis: (18) Acute respiratory distress: (19) Bronchospasm: (20) Acute basilic vein thrombosis: Plan Currently on inpatient comfort care Pulmonary embolism Acute basilic vein thrombosis - History of upper GI bleed, now concern for lower GI bleed given Hemoccult positive stools A-fib with RVR Acute respiratory distress, likely secondary to bronchospasm, pulmonary embolism, currently resolved Altered mental status, improving High-grade bowel obstruction Septic shock Lactic acidosis, resolved A-fib with RVR Episodes of hematemesis NSTEMI Distal humeral fracture, conservative management Hypoxia, continue oxygen as above History of diabetes, A1c, low-dose sliding scale Physical deconditioning PT OT Protein calorie malnutrition,, Attestations Medical Necessity Statement*: Patient requires hospitalization for inpatient comfort care Diagnoses Goals of care, counseling/discussion Z71.89 Need for comfort care UGIB (upper gastrointestinal bleed) K92.2 Fracture of distal end of humerus S42.409A Encounter type: initial encounter Fracture alignment: nondisplaced Fracture type: closed Laterality: left Sepsis A41.9 NSTEMI (non-ST elevated myocardial infarction) I21.4 MIKEY (acute kidney injury) N17.9 Small bowel obstruction K56.609 Aspiration pneumonia J69.0 Hypoxia R09.02 Lactic acidosis E87.20 Septic shock A41.9; R65.21 Altered mental status R41.82 Protein calorie malnutrition E46 Physical deconditioning R53.81 Recurrent aspiration events Aspiration pneumonitis J69.0 Acute respiratory distress R06.03 Bronchospasm J98.01 Acute basilic vein thrombosis I82.619
[2023-02-19 17:52] VITALS: O2SAT 93
[2023-02-20] VITALS: BP 152/73; PULSE 87; RESP 16; TEMP 37.7; O2SAT 90
[2023-02-20 04:00] VITALS: BP 159/85; PULSE 82; RESP 16; TEMP 36.7; O2SAT 90
[2023-02-20 07:21] VITALS: BP 167/93; PULSE 85; RESP 17; TEMP 37.3; O2SAT 90
[2023-02-20] MEDS: morphine 10 mg/0.5 mL oral liq UD 2 MG SUBLINGUAL ×2 (17:02→19:35)
[2023-02-20] MEDS: zinc oxide oint 30 gm 1 APPLIC TOPICAL (17:05)
--- NOTE | 2023-02-20 17:45 | PM.PN ---
Subjective Subjective: Patient was seen this morning, she is happy, she is smiling, she is alert to her name, not to place, not to time, she can follow some commands, she really has no complaints, Vitals/I&O/Wt Last Vital Signs Temp 99.1 F 02/20/23 07:21 Pulse 85 02/20/23 07:21 Resp 17 02/20/23 07:21 BP 167/93 02/20/23 07:21 Pulse Ox 90 02/20/23 07:21 O2 Del Method Room Air 02/20/23 07:21 O2 Flow Rate 3 02/19/23 08:09 02/20/23 02/20/23 02/20/23 06:59 14:59 22:59 Intake Total 120 / 120 Balance 120 / 120 Weight last 48 hrs Weight 63.276 kg Weight 63.957 kg Physical Exam Const: COMMON NORMALS: no acute distress Resp: COMMON NORMALS: normal respiratory effort, No retractions and No use of accessory muscles AUSCULTATION: crackles Cardio: COMMON NORMALS: regular rate, regular rhythm, S1 normal heart sound present and S2 normal heart sound present RATE: regular rate RHYTHM: regular rhythm HEART SOUNDS: S1 normal heart sound present and S2 normal heart sound present GI: OTHER: Abdomen soft, distended, diminished bowel sounds in all 4 quadrants Urinary Catheter Management: Nelson: Cath Placed During This Visit: yes Reason for Continuing Indwelling Catheter: Hospice/Comfort/Palliative Care Urinary Catheter Date of Insertion: 02/07/23 Urinary Catheter Time of Insertion: 00:20 Data 02/15/23 04:57 02/15/23 04:57 A&P Assessment and plan (1) Goals of care, counseling/discussion: (2) Need for comfort care: (3) UGIB (upper gastrointestinal bleed): (4) Fracture of distal end of humerus: Qualifiers: Encounter type: initial encounter Fracture alignment: nondisplaced Fracture type: closed Laterality: left (5) Sepsis: (6) NSTEMI (non-ST elevated myocardial infarction): (7) MIKEY (acute kidney injury): (8) Small bowel obstruction: (9) Aspiration pneumonia: (10) Hypoxia: (11) Lactic acidosis: (12) Septic shock: (13) Altered mental status: (14) Protein calorie malnutrition: (15) Physical deconditioning: (16) Recurrent aspiration events: (17) Aspiration pneumonitis: (18) Acute respiratory distress: (19) Bronchospasm: (20) Acute basilic vein thrombosis: Plan Currently on inpatient comfort care Pulmonary embolism Acute basilic vein thrombosis - History of upper GI bleed, now concern for lower GI bleed given Hemoccult positive stools A-fib with RVR Acute respiratory distress, likely secondary to bronchospasm, pulmonary embolism, currently resolved Altered mental status, improving High-grade bowel obstruction Septic shock Lactic acidosis, resolved A-fib with RVR Episodes of hematemesis NSTEMI Distal humeral fracture, conservative management Hypoxia, continue oxygen as above History of diabetes, A1c, low-dose sliding scale Physical deconditioning PT OT Protein calorie malnutrition,, Attestations Medical Necessity Statement*: Patient requires hospitalization for inpatient comfort care Diagnoses Goals of care, counseling/discussion Z71.89 Need for comfort care UGIB (upper gastrointestinal bleed) K92.2 Fracture of distal end of humerus S42.409A Encounter type: initial encounter Fracture alignment: nondisplaced Fracture type: closed Laterality: left Sepsis A41.9 NSTEMI (non-ST elevated myocardial infarction) I21.4 MIKEY (acute kidney injury) N17.9 Small bowel obstruction K56.609 Aspiration pneumonia J69.0 Hypoxia R09.02 Lactic acidosis E87.20 Septic shock A41.9; R65.21 Altered mental status R41.82 Protein calorie malnutrition E46 Physical deconditioning R53.81 Recurrent aspiration events Aspiration pneumonitis J69.0 Acute respiratory distress R06.03 Bronchospasm J98.01 Acute basilic vein thrombosis I82.619
[2023-02-20 19:27] VITALS: BP 174/81; PULSE 86; RESP 17; TEMP 36.8; O2SAT 92
[2023-02-21 06:00] VITALS: BMI 26.9
--- NOTE | 2023-02-21 10:28 | PC.SOCIAL ---
IMM Updated Updated Luciano Batista, pt's guardian, on IMM. No questions voiced. Provided pt a copy. Initialed, dated, & timed copy in chart.
--- NOTE | 2023-02-21 16:20 | PM.PN ---
Subjective Subjective: Patient was seen this morning, she is alert to person, not to place, she is smiling, she tells me she is doing okay Vitals/I&O/Wt Last Vital Signs Temp 98.3 F 02/20/23 19:27 Pulse 86 02/20/23 19:27 Resp 17 02/20/23 19:27 BP 174/81 02/20/23 19:27 Pulse Ox 92 02/20/23 19:27 O2 Del Method Nasal Cannula 02/20/23 19:27 O2 Flow Rate 2 02/20/23 19:27 02/21/23 02/21/23 02/21/23 06:59 14:59 22:59 Intake Total 0 / 120 360 / 360 Output Total 350 / 350 Balance 0 / 120 10 / 10 Weight last 48 hrs Weight 64.495 kg Weight 63.276 kg Physical Exam Const: COMMON NORMALS: no acute distress Resp: COMMON NORMALS: normal respiratory effort, No retractions, No use of accessory muscles and clear to auscultation bilaterally AUSCULTATION: clear to auscultation bilaterally Cardio: COMMON NORMALS: regular rate, regular rhythm, S1 normal heart sound present and S2 normal heart sound present RATE: regular rate RHYTHM: regular rhythm HEART SOUNDS: S1 normal heart sound present and S2 normal heart sound present GI: COMMON NORMALS: Normal to inspection, nondistended, normoactive bowel sounds present and non-tender Extremity: COMMON NORMALS: no pedal edema Urinary Catheter Management: Nelson: Cath Placed During This Visit: yes, but has since been removed by the nurse Reason for Continuing Indwelling Catheter: Hospice/Comfort/Palliative Care Urinary Catheter Date of Insertion: 02/21/23 Urinary Catheter Time of Insertion: 00:20 Date Urinary Catheter Removed: 02/21/23 Time Urinary Catheter Discontinued: 12:15 Data 02/15/23 04:57 02/15/23 04:57 A&P Assessment and plan (1) Goals of care, counseling/discussion: (2) Need for comfort care: (3) UGIB (upper gastrointestinal bleed): (4) Fracture of distal end of humerus: Qualifiers: Encounter type: initial encounter Fracture alignment: nondisplaced Fracture type: closed Laterality: left (5) Sepsis: (6) NSTEMI (non-ST elevated myocardial infarction): (7) MIKEY (acute kidney injury): (8) Small bowel obstruction: (9) Aspiration pneumonia: (10) Hypoxia: (11) Lactic acidosis: (12) Septic shock: (13) Altered mental status: (14) Protein calorie malnutrition: (15) Physical deconditioning: (16) Recurrent aspiration events: (17) Aspiration pneumonitis: (18) Acute respiratory distress: (19) Bronchospasm: (20) Acute basilic vein thrombosis: Plan Currently on inpatient comfort care Pulmonary embolism Acute basilic vein thrombosis - History of upper GI bleed, now concern for lower GI bleed given Hemoccult positive stools A-fib with RVR Acute respiratory distress, likely secondary to bronchospasm, pulmonary embolism, currently resolved Altered mental status, improving High-grade bowel obstruction Septic shock Lactic acidosis, resolved A-fib with RVR Episodes of hematemesis NSTEMI Distal humeral fracture, conservative management Hypoxia, continue oxygen as above History of diabetes, A1c, low-dose sliding scale Physical deconditioning PT OT Protein calorie malnutrition,, Attestations Medical Necessity Statement*: Patient requires hospitalization for inpatient comfort care Diagnoses Goals of care, counseling/discussion Z71.89 Need for comfort care UGIB (upper gastrointestinal bleed) K92.2 Fracture of distal end of humerus S42.409A Encounter type: initial encounter Fracture alignment: nondisplaced Fracture type: closed Laterality: left Sepsis A41.9 NSTEMI (non-ST elevated myocardial infarction) I21.4 MIKEY (acute kidney injury) N17.9 Small bowel obstruction K56.609 Aspiration pneumonia J69.0 Hypoxia R09.02 Lactic acidosis E87.20 Septic shock A41.9; R65.21 Altered mental status R41.82 Protein calorie malnutrition E46 Physical deconditioning R53.81 Recurrent aspiration events Aspiration pneumonitis J69.0 Acute respiratory distress R06.03 Bronchospasm J98.01 Acute basilic vein thrombosis I82.619
[2023-02-21 19:00] VITALS: BP 138/96; PULSE 87; RESP 16; TEMP 36.9; O2SAT 95
[2023-02-22 08:08] VITALS: BP 163/84; PULSE 85; RESP 20; TEMP 36.1; O2SAT 90
[2023-02-22 12:00] VITALS: BP 165/78; PULSE 84; RESP 22; TEMP 36.1; O2SAT 90
--- NOTE | 2023-02-22 14:56 | P.PN_ITS ---
Subjective Subjective: Patient was seen this morning, she is alert, awake, follows some commands Vitals/I&O/Wt Last Vital Signs Temp 97.0 F L 02/22/23 12:00 Pulse 84 02/22/23 12:00 Resp 22 H 02/22/23 12:00 BP 165/78 02/22/23 12:00 Pulse Ox 90 02/22/23 12:00 O2 Del Method Room Air 02/22/23 12:00 O2 Flow Rate 2 02/21/23 08:55 02/21/23 02/22/23 02/22/23 22:59 06:59 14:59 Intake Total 240 / 240 Output Total 410 / 760 Balance -410 / -400 240 / 240 Weight last 48 hrs Weight 62.596 kg Weight 64.495 kg Physical Exam Const: COMMON NORMALS: no acute distress Resp: COMMON NORMALS: normal respiratory effort, No retractions, No use of accessory muscles and clear to auscultation bilaterally AUSCULTATION: clear to auscultation bilaterally Cardio: COMMON NORMALS: regular rate, regular rhythm, S1 normal heart sound present and S2 normal heart sound present RATE: regular rate RHYTHM: regular rhythm HEART SOUNDS: S1 normal heart sound present and S2 normal heart sound present GI: COMMON NORMALS: Normal to inspection, nondistended, normoactive bowel sounds present Extremity: COMMON NORMALS: no pedal edema Urinary Catheter Management: Nelson: Cath Placed During This Visit: yes, but has since been removed by the nurse Reason for Continuing Indwelling Catheter: Acute Urinary Retention or Obstruction Urinary Catheter Date of Insertion: 02/21/23 Urinary Catheter Time of Insertion: 00:20 Date Urinary Catheter Removed: 02/21/23 Time Urinary Catheter Discontinued: 12:15 Data 02/15/23 04:57 02/15/23 04:57 A&P Assessment and plan (1) Goals of care, counseling/discussion: (2) Need for comfort care: (3) UGIB (upper gastrointestinal bleed): (4) Fracture of distal end of humerus: Qualifiers: Encounter type: initial encounter Fracture alignment: nondisplaced Fracture type: closed Laterality: left (5) Sepsis: (6) NSTEMI (non-ST elevated myocardial infarction): (7) MIKEY (acute kidney injury): (8) Small bowel obstruction: (9) Aspiration pneumonia: (10) Hypoxia: (11) Lactic acidosis: (12) Septic shock: (13) Altered mental status: (14) Protein calorie malnutrition: (15) Physical deconditioning: (16) Recurrent aspiration events: (17) Aspiration pneumonitis: (18) Acute respiratory distress: (19) Bronchospasm: (20) Acute basilic vein thrombosis: Plan Currently on inpatient comfort care Pulmonary embolism Acute basilic vein thrombosis - History of upper GI bleed, now concern for lower GI bleed given Hemoccult positive stools A-fib with RVR Acute respiratory distress, likely secondary to bronchospasm, pulmonary embolism, currently resolved Altered mental status, improving High-grade bowel obstruction Septic shock Lactic acidosis, resolved A-fib with RVR Episodes of hematemesis NSTEMI Distal humeral fracture, conservative management Hypoxia, continue oxygen as above History of diabetes, A1c, low-dose sliding scale Physical deconditioning PT OT Protein calorie malnutrition,, Attestations Medical Necessity Statement*: Patient currently requires hospitalization for inpatient comfort care Coding Level of Care Code 18720 Moderate MDM includes number and complexity of problems actively addressed during encounter, amount and/or complexity of data reviewed/ordered and described risk of complication, morbidity or mortality of management as documen carrington Diagnoses Goals of care, counseling/discussion Z71.89 Need for comfort care UGIB (upper gastrointestinal bleed) K92.2 Fracture of distal end of humerus S42.409A Encounter type: initial encounter Fracture alignment: nondisplaced Fracture type: closed Laterality: left Sepsis A41.9 NSTEMI (non-ST elevated myocardial infarction) I21.4 MIKEY (acute kidney injury) N17.9 Small bowel obstruction K56.609 Aspiration pneumonia J69.0 Hypoxia R09.02 Lactic acidosis E87.20 Septic shock A41.9; R65.21 Altered mental status R41.82 Protein calorie malnutrition E46 Physical deconditioning R53.81 Recurrent aspiration events Aspiration pneumonitis J69.0 Acute respiratory distress R06.03 Bronchospasm J98.01 Acute basilic vein thrombosis I82.619
[2023-02-22 17:33] VITALS: BP 169/75; PULSE 86; RESP 22; TEMP 36.1; O2SAT 90
[2023-02-22 19:35] VITALS: BP 184/81; PULSE 89; RESP 18; TEMP 36.8; O2SAT 93
[2023-02-22 23:19] VITALS: BP 158/55; PULSE 86; RESP 18; TEMP 36.7; O2SAT 95
[2023-02-23 04:04] VITALS: BP 144/73; PULSE 82; RESP 17; TEMP 36.9; O2SAT 97
[2023-02-23 04:57] VITALS: BMI 26.1
[2023-02-23 07:25] VITALS: BP 172/70; PULSE 84; RESP 19; TEMP 36.4; O2SAT 90
[2023-02-23 11:32] VITALS: BP 171/75; PULSE 82; RESP 18; TEMP 36.6; O2SAT 90
--- NOTE | 2023-02-23 12:25 | PM.PN ---
Subjective Subjective: Patient was seen this morning, she smiles at me, alert to person, not to place, not to time, Vitals/I&O/Wt Last Vital Signs Temp 98 F 02/23/23 11:32 Pulse 82 02/23/23 11:32 Resp 18 02/23/23 11:32 BP 171/75 02/23/23 11:32 Pulse Ox 90 02/23/23 11:32 O2 Del Method Room Air 02/23/23 11:32 O2 Flow Rate 2 02/23/23 04:04 02/22/23 02/23/23 02/23/23 22:59 06:59 14:59 Intake Total 240 / 480 Output Total 250 / 250 100 / 350 Balance -10 / 230 -100 / 130 Weight last 48 hrs Weight 62.681 kg Weight 62.596 kg Physical Exam Const: COMMON NORMALS: no acute distress Neck/C-Spine: COMMON NORMALS: no JVD Cardio: COMMON NORMALS: no JVD, regular rate, regular rhythm, S1 normal heart sound present and S2 normal heart sound present RATE: regular rate RHYTHM: regular rhythm HEART SOUNDS: S1 normal heart sound present and S2 normal heart sound present GI: AUSCULTATION: Yes normoactive bowel sounds OTHER: Abdomen is distended, does have diffuse tenderness Extremity: COMMON NORMALS: no pedal edema Urinary Catheter Management: Nelson: Cath Placed During This Visit: yes, but has since been removed by the nurse Reason for Continuing Indwelling Catheter: Acute Urinary Retention or Obstruction Urinary Catheter Date of Insertion: 02/21/23 Urinary Catheter Time of Insertion: 00:20 Date Urinary Catheter Removed: 02/21/23 Time Urinary Catheter Discontinued: 12:15 Data 02/15/23 04:57 02/15/23 04:57 A&P Assessment and plan (1) Goals of care, counseling/discussion: (2) Need for comfort care: (3) UGIB (upper gastrointestinal bleed): (4) Fracture of distal end of humerus: Qualifiers: Encounter type: initial encounter Fracture alignment: nondisplaced Fracture type: closed Laterality: left (5) Sepsis: (6) NSTEMI (non-ST elevated myocardial infarction): (7) MIKEY (acute kidney injury): (8) Small bowel obstruction: (9) Aspiration pneumonia: (10) Hypoxia: (11) Lactic acidosis: (12) Septic shock: (13) Altered mental status: (14) Protein calorie malnutrition: (15) Physical deconditioning: (16) Recurrent aspiration events: (17) Aspiration pneumonitis: (18) Acute respiratory distress: (19) Bronchospasm: (20) Acute basilic vein thrombosis: Plan Currently on inpatient comfort care Pulmonary embolism Acute basilic vein thrombosis - History of upper GI bleed, now concern for lower GI bleed given Hemoccult positive stools A-fib with RVR Acute respiratory distress, likely secondary to bronchospasm, pulmonary embolism, currently resolved Altered mental status, improving High-grade bowel obstruction Septic shock Lactic acidosis, resolved A-fib with RVR Episodes of hematemesis NSTEMI Distal humeral fracture, conservative management Hypoxia, continue oxygen as above History of diabetes, A1c, low-dose sliding scale Physical deconditioning PT OT Protein calorie malnutrition,, Attestations Medical Necessity Statement*: Patient requires hospitalization for comfort care/hospice Diagnoses Goals of care, counseling/discussion Z71.89 Need for comfort care UGIB (upper gastrointestinal bleed) K92.2 Fracture of distal end of humerus S42.409A Encounter type: initial encounter Fracture alignment: nondisplaced Fracture type: closed Laterality: left Sepsis A41.9 NSTEMI (non-ST elevated myocardial infarction) I21.4 MIKEY (acute kidney injury) N17.9 Small bowel obstruction K56.609 Aspiration pneumonia J69.0 Hypoxia R09.02 Lactic acidosis E87.20 Septic shock A41.9; R65.21 Altered mental status R41.82 Protein calorie malnutrition E46 Physical deconditioning R53.81 Recurrent aspiration events Aspiration pneumonitis J69.0 Acute respiratory distress R06.03 Bronchospasm J98.01 Acute basilic vein thrombosis I82.619
--- NOTE | 2023-02-23 14:23 | PC.SOCIAL ---
IMM Update pg 2 of IMM not updated @ this time as patient's Level 2 is pending and not expected to DC in the next 24-48 hours.
[2023-02-23 20:51] VITALS: PULSE 86; RESP 32; TEMP 36.8; O2SAT 87
[2023-02-24 00:47] VITALS: PULSE 77; RESP 20; O2SAT 86
[2023-02-24 08:00] VITALS: BP 176/83; PULSE 79; RESP 22; TEMP 36.3; O2SAT 90
[2023-02-24 12:00] VITALS: BP 173/80; PULSE 85; RESP 20; TEMP 36.4; O2SAT 90
--- NOTE | 2023-02-24 15:53 | PM.PN ---
Subjective Subjective: Patient was seen this morning, alert, awake, she smiles at me Vitals/I&O/Wt Last Vital Signs Temp 97.5 F L 02/24/23 12:00 Pulse 85 02/24/23 12:00 Resp 20 H 02/24/23 12:00 BP 173/80 02/24/23 12:00 Pulse Ox 90 02/24/23 12:00 O2 Del Method Room Air 02/24/23 12:00 O2 Flow Rate 2 02/23/23 04:04 02/24/23 02/24/23 02/24/23 06:59 14:59 22:59 Intake Total 480 / 480 Output Total 100 / 300 Balance -100 / 300 480 / 480 Weight last 48 hrs Weight 60.917 kg Weight 62.681 kg Physical Exam Const: COMMON NORMALS: no acute distress Resp: COMMON NORMALS: normal respiratory effort, No retractions, No use of accessory muscles and clear to auscultation bilaterally AUSCULTATION: clear to auscultation bilaterally Cardio: COMMON NORMALS: regular rate, regular rhythm, S1 normal heart sound present and S2 normal heart sound present RATE: regular rate RHYTHM: regular rhythm HEART SOUNDS: S1 normal heart sound present and S2 normal heart sound present GI: COMMON NORMALS: Normal to inspection, nondistended, normoactive bowel sounds present Extremity: COMMON NORMALS: no pedal edema Urinary Catheter Management: Nelson: Cath Placed During This Visit: yes, but has since been removed by the nurse Reason for Continuing Indwelling Catheter: Acute Urinary Retention or Obstruction Urinary Catheter Date of Insertion: 02/21/23 Urinary Catheter Time of Insertion: 00:20 Date Urinary Catheter Removed: 02/21/23 Time Urinary Catheter Discontinued: 12:15 Data 02/15/23 04:57 02/15/23 04:57 A&P Assessment and plan (1) Goals of care, counseling/discussion: (2) Need for comfort care: (3) UGIB (upper gastrointestinal bleed): (4) Fracture of distal end of humerus: Qualifiers: Encounter type: initial encounter Fracture alignment: nondisplaced Fracture type: closed Laterality: left (5) Sepsis: (6) NSTEMI (non-ST elevated myocardial infarction): (7) MIKEY (acute kidney injury): (8) Small bowel obstruction: (9) Aspiration pneumonia: (10) Hypoxia: (11) Lactic acidosis: (12) Septic shock: (13) Altered mental status: (14) Protein calorie malnutrition: (15) Physical deconditioning: (16) Recurrent aspiration events: (17) Aspiration pneumonitis: (18) Acute respiratory distress: (19) Bronchospasm: (20) Acute basilic vein thrombosis: Plan Currently on inpatient comfort care Pulmonary embolism Acute basilic vein thrombosis - History of upper GI bleed, now concern for lower GI bleed given Hemoccult positive stools A-fib with RVR Acute respiratory distress, likely secondary to bronchospasm, pulmonary embolism, currently resolved Altered mental status, improving High-grade bowel obstruction Septic shock Lactic acidosis, resolved A-fib with RVR Episodes of hematemesis NSTEMI Distal humeral fracture, conservative management Hypoxia, continue oxygen as above History of diabetes, A1c, low-dose sliding scale Physical deconditioning PT OT Protein calorie malnutrition,, Attestations Medical Necessity Statement*: Patient requires hospitalization for inpatient comfort care/hospice Diagnoses Goals of care, counseling/discussion Z71.89 Need for comfort care UGIB (upper gastrointestinal bleed) K92.2 Fracture of distal end of humerus S42.409A Encounter type: initial encounter Fracture alignment: nondisplaced Fracture type: closed Laterality: left Sepsis A41.9 NSTEMI (non-ST elevated myocardial infarction) I21.4 MIKEY (acute kidney injury) N17.9 Small bowel obstruction K56.609 Aspiration pneumonia J69.0 Hypoxia R09.02 Lactic acidosis E87.20 Septic shock A41.9; R65.21 Altered mental status R41.82 Protein calorie malnutrition E46 Physical deconditioning R53.81 Recurrent aspiration events Aspiration pneumonitis J69.0 Acute respiratory distress R06.03 Bronchospasm J98.01 Acute basilic vein thrombosis I82.619
[2023-02-24 20:00] VITALS: BP 184/76; PULSE 88; RESP 18; TEMP 36.6; O2SAT 87
[2023-02-25] VITALS: BP 159/71; PULSE 86; RESP 17; TEMP 36.5; O2SAT 91
[2023-02-25 07:59] VITALS: BP 131/85; PULSE 126; RESP 18; TEMP 36.7; O2SAT 90
[2023-02-25] MEDS: lanolin oint 7 gm 1 APPLIC TOPICAL (08:09)
--- NOTE | 2023-02-25 15:34 | PC.SOCIAL ---
IMM Update pg 2 of IMM Updated and reviewed w/ patients guardian Luciano Batista. Copy left @ bedside. Copy in chart dated, and initialed.
[2023-02-25 15:48] VITALS: BP 163/93; PULSE 114; RESP 18; TEMP 36.7; O2SAT 90
--- NOTE | 2023-02-25 16:01 | PM.PN ---
Subjective Subjective: Patient was seen this morning, she is smiling, she recognizes me, Vitals/I&O/Wt Last Vital Signs Temp 98.1 F 02/25/23 15:48 Pulse 114 H 02/25/23 15:48 Resp 18 02/25/23 15:48 BP 163/93 02/25/23 15:48 Pulse Ox 90 02/25/23 15:48 O2 Del Method Room Air 02/25/23 15:48 O2 Flow Rate 2 02/23/23 04:04 02/25/23 02/25/23 02/25/23 06:59 14:59 22:59 Intake Total 240 / 1200 720 / 720 Output Total 100 / 550 Balance 140 / 650 720 / 720 Weight last 48 hrs Weight 60.6 kg Weight 60.917 kg Physical Exam Const: COMMON NORMALS: no acute distress Resp: COMMON NORMALS: normal respiratory effort, No retractions, No use of accessory muscles and clear to auscultation bilaterally AUSCULTATION: clear to auscultation bilaterally Cardio: COMMON NORMALS: regular rate, regular rhythm, S1 normal heart sound present and S2 normal heart sound present RATE: regular rate RHYTHM: regular rhythm HEART SOUNDS: S1 normal heart sound present and S2 normal heart sound present GI: COMMON NORMALS: Normal to inspection, nondistended, normoactive bowel sounds present Extremity: COMMON NORMALS: no pedal edema Urinary Catheter Management: Nelson: Cath Placed During This Visit: yes, but has since been removed by the nurse Reason for Continuing Indwelling Catheter: Hospice/Comfort/Palliative Care Urinary Catheter Date of Insertion: 02/21/23 Urinary Catheter Time of Insertion: 00:20 Date Urinary Catheter Removed: 02/21/23 Time Urinary Catheter Discontinued: 12:15 Data 02/15/23 04:57 02/15/23 04:57 A&P Assessment and plan (1) Goals of care, counseling/discussion: (2) Need for comfort care: (3) UGIB (upper gastrointestinal bleed): (4) Fracture of distal end of humerus: Qualifiers: Encounter type: initial encounter Fracture alignment: nondisplaced Fracture type: closed Laterality: left (5) Sepsis: (6) NSTEMI (non-ST elevated myocardial infarction): (7) MIKEY (acute kidney injury): (8) Small bowel obstruction: (9) Aspiration pneumonia: (10) Hypoxia: (11) Lactic acidosis: (12) Septic shock: (13) Altered mental status: (14) Protein calorie malnutrition: (15) Physical deconditioning: (16) Recurrent aspiration events: (17) Aspiration pneumonitis: (18) Acute respiratory distress: (19) Bronchospasm: (20) Acute basilic vein thrombosis: Plan Currently on inpatient comfort care Pulmonary embolism Acute basilic vein thrombosis - History of upper GI bleed, now concern for lower GI bleed given Hemoccult positive stools A-fib with RVR Acute respiratory distress, likely secondary to bronchospasm, pulmonary embolism, currently resolved Altered mental status, improving High-grade bowel obstruction Septic shock Lactic acidosis, resolved A-fib with RVR Episodes of hematemesis NSTEMI Distal humeral fracture, conservative management Hypoxia, continue oxygen as above History of diabetes, A1c, low-dose sliding scale Physical deconditioning PT OT Protein calorie malnutrition,, Attestations Medical Necessity Statement*: Patient requires hospitalization for inpatient hospice, comfort care Diagnoses Goals of care, counseling/discussion Z71.89 Need for comfort care UGIB (upper gastrointestinal bleed) K92.2 Fracture of distal end of humerus S42.409A Encounter type: initial encounter Fracture alignment: nondisplaced Fracture type: closed Laterality: left Sepsis A41.9 NSTEMI (non-ST elevated myocardial infarction) I21.4 MIKEY (acute kidney injury) N17.9 Small bowel obstruction K56.609 Aspiration pneumonia J69.0 Hypoxia R09.02 Lactic acidosis E87.20 Septic shock A41.9; R65.21 Altered mental status R41.82 Protein calorie malnutrition E46 Physical deconditioning R53.81 Recurrent aspiration events Aspiration pneumonitis J69.0 Acute respiratory distress R06.03 Bronchospasm J98.01 Acute basilic vein thrombosis I82.619
[2023-02-25 19:50] VITALS: BP 160/83; PULSE 111; RESP 18; TEMP 36.7; O2SAT 90
[2023-02-26] VITALS: BP 160/84; PULSE 80; RESP 17; TEMP 36.4; O2SAT 90
[2023-02-26 04:00] VITALS: BP 163/80; PULSE 81; RESP 18; TEMP 36.6; O2SAT 95
[2023-02-26 10:59] VITALS: BP 173/79; PULSE 83; RESP 17; TEMP 36.9; O2SAT 96
--- NOTE | 2023-02-26 16:49 | PM.PN ---
Subjective Subjective: Patient was seen this morning, she is smiling at me, nursing staff tell me that she jokes with them, when they try to listen to her lungs, she holds her nose Vitals/I&O/Wt Last Vital Signs Temp 98.4 F 02/26/23 10:59 Pulse 83 02/26/23 10:59 Resp 17 02/26/23 10:59 BP 173/79 02/26/23 10:59 Pulse Ox 96 02/26/23 10:59 O2 Del Method Nasal Cannula 02/26/23 10:59 O2 Flow Rate 2 02/23/23 04:04 02/26/23 02/26/23 02/26/23 06:59 14:59 22:59 Intake Total 120 / 1560 480 / 480 Output Total 350 / 350 200 / 200 Balance -230 / 1210 280 / 280 Weight last 48 hrs Weight 60.282 kg Weight 60.6 kg Physical Exam Const: COMMON NORMALS: no acute distress Resp: COMMON NORMALS: normal respiratory effort, No retractions, No use of accessory muscles and clear to auscultation bilaterally AUSCULTATION: clear to auscultation bilaterally Cardio: COMMON NORMALS: regular rate, regular rhythm, S1 normal heart sound present and S2 normal heart sound present RATE: regular rate RHYTHM: regular rhythm HEART SOUNDS: S1 normal heart sound present and S2 normal heart sound present GI: COMMON NORMALS: Normal to inspection, nondistended, normoactive bowel sounds present and non-tender Extremity: COMMON NORMALS: no pedal edema Urinary Catheter Management: Nelson: Cath Placed During This Visit: yes, but has since been removed by the nurse Reason for Continuing Indwelling Catheter: Hospice/Comfort/Palliative Care Urinary Catheter Date of Insertion: 02/21/23 Urinary Catheter Time of Insertion: 00:20 Date Urinary Catheter Removed: 02/21/23 Time Urinary Catheter Discontinued: 12:15 Data 02/15/23 04:57 02/15/23 04:57 A&P Assessment and plan (1) Goals of care, counseling/discussion: (2) Need for comfort care: (3) UGIB (upper gastrointestinal bleed): (4) Fracture of distal end of humerus: Qualifiers: Encounter type: initial encounter Fracture alignment: nondisplaced Fracture type: closed Laterality: left (5) Sepsis: (6) NSTEMI (non-ST elevated myocardial infarction): (7) MIKEY (acute kidney injury): (8) Small bowel obstruction: (9) Aspiration pneumonia: (10) Hypoxia: (11) Lactic acidosis: (12) Septic shock: (13) Altered mental status: (14) Protein calorie malnutrition: (15) Physical deconditioning: (16) Recurrent aspiration events: (17) Aspiration pneumonitis: (18) Acute respiratory distress: (19) Bronchospasm: (20) Acute basilic vein thrombosis: Plan Currently on inpatient comfort care Pulmonary embolism Acute basilic vein thrombosis - History of upper GI bleed, now concern for lower GI bleed given Hemoccult positive stools A-fib with RVR Acute respiratory distress, likely secondary to bronchospasm, pulmonary embolism, currently resolved Altered mental status, improving High-grade bowel obstruction Septic shock Lactic acidosis, resolved A-fib with RVR Episodes of hematemesis NSTEMI Distal humeral fracture, conservative management Hypoxia, continue oxygen as above History of diabetes, A1c, low-dose sliding scale Physical deconditioning PT OT Protein calorie malnutrition,, Attestations Medical Necessity Statement*: Patient requires hospitalization for inpatient comfort care hospice Diagnoses Goals of care, counseling/discussion Z71.89 Need for comfort care UGIB (upper gastrointestinal bleed) K92.2 Fracture of distal end of humerus S42.409A Encounter type: initial encounter Fracture alignment: nondisplaced Fracture type: closed Laterality: left Sepsis A41.9 NSTEMI (non-ST elevated myocardial infarction) I21.4 MIKEY (acute kidney injury) N17.9 Small bowel obstruction K56.609 Aspiration pneumonia J69.0 Hypoxia R09.02 Lactic acidosis E87.20 Septic shock A41.9; R65.21 Altered mental status R41.82 Protein calorie malnutrition E46 Physical deconditioning R53.81 Recurrent aspiration events Aspiration pneumonitis J69.0 Acute respiratory distress R06.03 Bronchospasm J98.01 Acute basilic vein thrombosis I82.619
[2023-02-26 19:38] VITALS: BP 130/62; PULSE 83; RESP 16; TEMP 36.4; O2SAT 91
[2023-02-27] VITALS: BP 150/65; PULSE 74; RESP 17; TEMP 37; O2SAT 96
[2023-02-27 04:44] VITALS: BP 130/62; PULSE 76; RESP 18; TEMP 37; O2SAT 91
[2023-02-27 07:52] VITALS: BP 165/78; PULSE 65; RESP 18; TEMP 36.6; O2SAT 98
--- NOTE | 2023-02-27 13:54 | PM.PN ---
Subjective Subjective: Patient was seen this morning, she is pleasant, smiling Vitals/I&O/Wt Last Vital Signs Temp 97.9 F 02/27/23 07:52 Pulse 65 02/27/23 07:52 Resp 18 02/27/23 07:52 BP 165/78 02/27/23 07:52 Pulse Ox 98 02/27/23 07:52 O2 Del Method Nasal Cannula 02/27/23 07:52 O2 Flow Rate 3 02/27/23 08:00 02/26/23 02/27/23 02/27/23 22:59 06:59 14:59 Intake Total 360 / 840 120 / 960 240 / 240 Output Total 350 / 550 500 / 1050 Balance 10 / 290 -380 / -90 240 / 240 Weight last 48 hrs Weight 58.57 kg Weight 60.282 kg Physical Exam Const: COMMON NORMALS: no acute distress HENMT: COMMON NORMALS: normocephalic HEAD & SCALP: normocephalic Resp: COMMON NORMALS: normal respiratory effort, No retractions, No use of accessory muscles and clear to auscultation bilaterally AUSCULTATION: clear to auscultation bilaterally Cardio: COMMON NORMALS: regular rate, regular rhythm, S1 normal heart sound present and S2 normal heart sound present RATE: regular rate RHYTHM: regular rhythm HEART SOUNDS: S1 normal heart sound present and S2 normal heart sound present GI: COMMON NORMALS: Normal to inspection, nondistended, normoactive bowel sounds present Urinary Catheter Management: Nelson: Cath Placed During This Visit: yes, but has since been removed by the nurse Reason for Continuing Indwelling Catheter: Hospice/Comfort/Palliative Care Urinary Catheter Date of Insertion: 02/21/23 Urinary Catheter Time of Insertion: 00:20 Date Urinary Catheter Removed: 02/21/23 Time Urinary Catheter Discontinued: 12:15 Data 02/15/23 04:57 02/15/23 04:57 A&P Assessment and plan (1) Goals of care, counseling/discussion: (2) Need for comfort care: (3) UGIB (upper gastrointestinal bleed): (4) Fracture of distal end of humerus: Qualifiers: Encounter type: initial encounter Fracture alignment: nondisplaced Fracture type: closed Laterality: left (5) Sepsis: (6) NSTEMI (non-ST elevated myocardial infarction): (7) MIKEY (acute kidney injury): (8) Small bowel obstruction: (9) Aspiration pneumonia: (10) Hypoxia: (11) Lactic acidosis: (12) Septic shock: (13) Altered mental status: (14) Protein calorie malnutrition: (15) Physical deconditioning: (16) Recurrent aspiration events: (17) Aspiration pneumonitis: (18) Acute respiratory distress: (19) Bronchospasm: (20) Acute basilic vein thrombosis: Plan Currently on comfort care/hospice Attestations Medical Necessity Statement*: Patient requires hospitalization for comfort care Diagnoses Goals of care, counseling/discussion Z71.89 Need for comfort care UGIB (upper gastrointestinal bleed) K92.2 Fracture of distal end of humerus S42.409A Encounter type: initial encounter Fracture alignment: nondisplaced Fracture type: closed Laterality: left Sepsis A41.9 NSTEMI (non-ST elevated myocardial infarction) I21.4 MIKEY (acute kidney injury) N17.9 Small bowel obstruction K56.609 Aspiration pneumonia J69.0 Hypoxia R09.02 Lactic acidosis E87.20 Septic shock A41.9; R65.21 Altered mental status R41.82 Protein calorie malnutrition E46 Physical deconditioning R53.81 Recurrent aspiration events Aspiration pneumonitis J69.0 Acute respiratory distress R06.03 Bronchospasm J98.01 Acute basilic vein thrombosis I82.619
--- NOTE | 2023-02-27 15:15 | PC.SOCIAL ---
IMM update IMM updated. Copy Pg 2 left at bedside. Attempted to contact Luciano Batista, unable to leave a VM due to mailbox being full. Initialled, dated, timed, and placed in chart.
[2023-02-28] VITALS: BP 173/77; PULSE 97; RESP 14; TEMP 36.8; O2SAT 98
--- NOTE | 2023-02-28 17:05 | PM.PN ---
Subjective Subjective: Patient was seen this morning, she is alert to person, she is smiling Vitals/I&O/Wt Last Vital Signs Temp 98.3 F 02/28/23 00:00 Pulse 97 02/28/23 00:00 Resp 14 02/28/23 00:00 BP 173/77 02/28/23 00:00 Pulse Ox 98 02/28/23 00:00 O2 Del Method Room Air 02/28/23 00:00 O2 Flow Rate 3 02/28/23 08:00 02/28/23 02/28/23 02/28/23 06:59 14:59 22:59 Output Total Balance - Weight last 48 hrs Weight 58.57 kg Physical Exam Const: COMMON NORMALS: no acute distress Resp: COMMON NORMALS: normal respiratory effort, No retractions, No use of accessory muscles and clear to auscultation bilaterally AUSCULTATION: clear to auscultation bilaterally Cardio: COMMON NORMALS: regular rate, regular rhythm, S1 normal heart sound present and S2 normal heart sound present RATE: regular rate RHYTHM: regular rhythm HEART SOUNDS: S1 normal heart sound present and S2 normal heart sound present GI: COMMON NORMALS: Normal to inspection, nondistended, normoactive bowel sounds present Extremity: COMMON NORMALS: no pedal edema Urinary Catheter Management: Nelson: Cath Placed During This Visit: yes, but has since been removed by the nurse Reason for Continuing Indwelling Catheter: Hospice/Comfort/Palliative Care Urinary Catheter Date of Insertion: 02/21/23 Urinary Catheter Time of Insertion: 00:20 Date Urinary Catheter Removed: 02/21/23 Time Urinary Catheter Discontinued: 12:15 Data 02/15/23 04:57 02/15/23 04:57 A&P Assessment and plan (1) Goals of care, counseling/discussion: (2) Need for comfort care: (3) UGIB (upper gastrointestinal bleed): (4) Fracture of distal end of humerus: Qualifiers: Encounter type: initial encounter Fracture alignment: nondisplaced Fracture type: closed Laterality: left (5) Sepsis: (6) NSTEMI (non-ST elevated myocardial infarction): (7) MIKEY (acute kidney injury): (8) Small bowel obstruction: (9) Aspiration pneumonia: (10) Hypoxia: (11) Lactic acidosis: (12) Septic shock: (13) Altered mental status: (14) Protein calorie malnutrition: (15) Physical deconditioning: (16) Recurrent aspiration events: (17) Aspiration pneumonitis: (18) Acute respiratory distress: (19) Bronchospasm: (20) Acute basilic vein thrombosis: Plan Currently on comfort care/hospice Attestations Medical Necessity Statement*: requires hospitalization for comfort care and Moderate MDM includes number and complexity of problems actively addressed during encounter, amount and/or complexity of data reviewed/ordered and described risk of complication, morbidity or mortality of management as documented Diagnoses Goals of care, counseling/discussion Z71.89 Need for comfort care UGIB (upper gastrointestinal bleed) K92.2 Fracture of distal end of humerus S42.409A Encounter type: initial encounter Fracture alignment: nondisplaced Fracture type: closed Laterality: left Sepsis A41.9 NSTEMI (non-ST elevated myocardial infarction) I21.4 MIKEY (acute kidney injury) N17.9 Small bowel obstruction K56.609 Aspiration pneumonia J69.0 Hypoxia R09.02 Lactic acidosis E87.20 Septic shock A41.9; R65.21 Altered mental status R41.82 Protein calorie malnutrition E46 Physical deconditioning R53.81 Recurrent aspiration events Aspiration pneumonitis J69.0 Acute respiratory distress R06.03 Bronchospasm J98.01 Acute basilic vein thrombosis I82.619
[2023-02-28 20:46] VITALS: RESP 18
[2023-02-28] MEDS: morphine 4 mg/mL SDV 1 mL 1 MG IVP (20:46)
[2023-02-28] MEDS: LORazepam 2 mg/mL INJ 1 mL 1 MG IVP (22:45)
--- NOTE | 2023-03-01 10:15 | PC.SOCIAL ---
IMM update IMM updated with patient's guardian Luciano Batista. Verbalized an understanding. Copy Pg 2 placed at bedside. Initialled, dated, timed, and placed in chart.
--- NOTE | 2023-03-01 11:11 | PM.PN ---
Subjective Subjective: Patient was seen this morning, she is sleeping, no issues overnight Vitals/I&O/Wt Last Vital Signs Temp 98.3 F 02/28/23 00:00 Pulse 97 02/28/23 00:00 Resp 18 02/28/23 20:46 BP 173/77 02/28/23 00:00 Pulse Ox 98 02/28/23 00:00 O2 Del Method Room Air 02/28/23 00:00 O2 Flow Rate 3 02/28/23 20:54 02/28/23 03/01/23 03/01/23 22:59 06:59 14:59 Intake Total 240 / 240 Output Total 60 / 60 100 / 160 Balance 180 / 180 -100 / 80 Weight last 48 hrs Weight 55.837 kg Physical Exam Const: COMMON NORMALS: no acute distress Resp: COMMON NORMALS: normal respiratory effort, No retractions, No use of accessory muscles and clear to auscultation bilaterally AUSCULTATION: clear to auscultation bilaterally Cardio: COMMON NORMALS: regular rate, regular rhythm, S1 normal heart sound present and S2 normal heart sound present RATE: regular rate RHYTHM: regular rhythm HEART SOUNDS: S1 normal heart sound present and S2 normal heart sound present GI: COMMON NORMALS: Normal to inspection, nondistended, normoactive bowel sounds present and non-tender Extremity: COMMON NORMALS: no pedal edema Urinary Catheter Management: Nelson: Cath Placed During This Visit: yes, but has since been removed by the nurse Reason for Continuing Indwelling Catheter: Other Urinary Catheter Date of Insertion: 02/21/23 Urinary Catheter Time of Insertion: 00:20 Date Urinary Catheter Removed: 02/21/23 Time Urinary Catheter Discontinued: 12:15 Data 02/15/23 04:57 02/15/23 04:57 A&P Assessment and plan (1) Goals of care, counseling/discussion: (2) Need for comfort care: (3) UGIB (upper gastrointestinal bleed): (4) Fracture of distal end of humerus: Qualifiers: Encounter type: initial encounter Fracture alignment: nondisplaced Fracture type: closed Laterality: left (5) Sepsis: (6) NSTEMI (non-ST elevated myocardial infarction): (7) MIKEY (acute kidney injury): (8) Small bowel obstruction: (9) Aspiration pneumonia: (10) Hypoxia: (11) Lactic acidosis: (12) Septic shock: (13) Altered mental status: (14) Protein calorie malnutrition: (15) Physical deconditioning: (16) Recurrent aspiration events: (17) Aspiration pneumonitis: (18) Acute respiratory distress: (19) Bronchospasm: (20) Acute basilic vein thrombosis: (21) Shingles outbreak: - On examination patient has a shingles outbreak on bilateral back -Vesicular-like lesions, in various stages, some crusting -i am going to start her on acyclovir for comfort, place on contact precautions Plan Currently on comfort care/hospice Attestations Medical Necessity Statement*: Patient requires hospitalization for comfort care hospice Diagnoses Goals of care, counseling/discussion Z71.89 Need for comfort care UGIB (upper gastrointestinal bleed) K92.2 Fracture of distal end of humerus S42.409A Encounter type: initial encounter Fracture alignment: nondisplaced Fracture type: closed Laterality: left Sepsis A41.9 NSTEMI (non-ST elevated myocardial infarction) I21.4 MIKEY (acute kidney injury) N17.9 Small bowel obstruction K56.609 Aspiration pneumonia J69.0 Hypoxia R09.02 Lactic acidosis E87.20 Septic shock A41.9; R65.21 Altered mental status R41.82 Protein calorie malnutrition E46 Physical deconditioning R53.81 Recurrent aspiration events Aspiration pneumonitis J69.0 Acute respiratory distress R06.03 Bronchospasm J98.01 Acute basilic vein thrombosis I82.619 Shingles outbreak B02.9
[2023-03-01] MEDS: morphine 4 mg/mL SDV 1 mL 1 MG IVP (16:38)
[2023-03-01] MEDS: acyclovir 800 mg Tablet PO (18:24)
[2023-03-01] MEDS: LORazepam 2 mg/mL INJ 1 mL 1 MG IVP (19:38)
[2023-03-01 20:17] VITALS: BP 150/76; PULSE 84; RESP 16; TEMP 36.3; O2SAT 84
[2023-03-02] MEDS: LORazepam 2 mg/mL INJ 1 mL 1 MG IVP (06:30)
[2023-03-02 08:10] VITALS: BP 152/65; PULSE 82; RESP 20; TEMP 36.8; O2SAT 93
--- NOTE | 2023-03-02 12:10 | PM.PN ---
Subjective Subjective: Patient was seen this morning, she is resting comfortably in bed, she does awaken, but falls back asleep Vitals/I&O/Wt Last Vital Signs Temp 98.3 F 03/02/23 08:10 Pulse 82 03/02/23 08:10 Resp 20 H 03/02/23 08:10 BP 152/65 03/02/23 08:10 Pulse Ox 93 03/02/23 08:10 O2 Del Method Nasal Cannula 03/02/23 08:10 O2 Flow Rate 3 03/02/23 08:00 03/01/23 03/02/23 03/02/23 22:59 06:59 14:59 Output Total 200 / 200 300 / 500 Balance -200 / -200 -300 / -500 Weight last 48 hrs Weight 57.153 kg Weight 55.837 kg Physical Exam Const: COMMON NORMALS: no acute distress Resp: COMMON NORMALS: normal respiratory effort, No retractions, No use of accessory muscles and clear to auscultation bilaterally AUSCULTATION: clear to auscultation bilaterally Cardio: COMMON NORMALS: regular rate, regular rhythm, S1 normal heart sound present and S2 normal heart sound present RATE: regular rate RHYTHM: regular rhythm HEART SOUNDS: S1 normal heart sound present and S2 normal heart sound present GI: OTHER: Abdomen soft, distended, good bowel sounds Extremity: COMMON NORMALS: no pedal edema Urinary Catheter Management: Nelson: Cath Placed During This Visit: yes, but has since been removed by the nurse Reason for Continuing Indwelling Catheter: Hospice/Comfort/Palliative Care Urinary Catheter Date of Insertion: 02/21/23 Urinary Catheter Time of Insertion: 00:20 Date Urinary Catheter Removed: 02/21/23 Time Urinary Catheter Discontinued: 12:15 Data 02/15/23 04:57 02/15/23 04:57 A&P Assessment and plan (1) Goals of care, counseling/discussion: (2) Need for comfort care: (3) UGIB (upper gastrointestinal bleed): (4) Fracture of distal end of humerus: Qualifiers: Encounter type: initial encounter Fracture alignment: nondisplaced Fracture type: closed Laterality: left (5) Sepsis: (6) NSTEMI (non-ST elevated myocardial infarction): (7) MIKEY (acute kidney injury): (8) Small bowel obstruction: (9) Aspiration pneumonia: (10) Hypoxia: (11) Lactic acidosis: (12) Septic shock: (13) Altered mental status: (14) Protein calorie malnutrition: (15) Physical deconditioning: (16) Recurrent aspiration events: (17) Aspiration pneumonitis: (18) Acute respiratory distress: (19) Bronchospasm: (20) Acute basilic vein thrombosis: (21) Shingles outbreak: - On examination patient has a shingles outbreak on bilateral back -Vesicular-like lesions, in various stages, some crusting -i am going to start her on acyclovir for comfort, place on contact precautions Plan Currently on comfort care/hospice Attestations Medical Necessity Statement*: Patient requires hospitalization for comfort care Diagnoses Goals of care, counseling/discussion Z71.89 Need for comfort care UGIB (upper gastrointestinal bleed) K92.2 Fracture of distal end of humerus S42.409A Encounter type: initial encounter Fracture alignment: nondisplaced Fracture type: closed Laterality: left Sepsis A41.9 NSTEMI (non-ST elevated myocardial infarction) I21.4 MIKEY (acute kidney injury) N17.9 Small bowel obstruction K56.609 Aspiration pneumonia J69.0 Hypoxia R09.02 Lactic acidosis E87.20 Septic shock A41.9; R65.21 Altered mental status R41.82 Protein calorie malnutrition E46 Physical deconditioning R53.81 Recurrent aspiration events Aspiration pneumonitis J69.0 Acute respiratory distress R06.03 Bronchospasm J98.01 Acute basilic vein thrombosis I82.619 Shingles outbreak B02.9
[2023-03-02 12:57] VITALS: RESP 16
[2023-03-02] MEDS: morphine 4 mg/mL SDV 1 mL 1 MG IVP ×2 (12:57→21:50)
[2023-03-02 19:50] VITALS: BP 177/76; PULSE 83; RESP 17; TEMP 36.4; O2SAT 98
[2023-03-03 01:10] VITALS: BP 221/74
[2023-03-03] MEDS: morphine 4 mg/mL SDV 1 mL 1 MG IVP ×4 (01:19→10:46)
[2023-03-03] MEDS: LORazepam 2 mg/mL INJ 1 mL 1 MG IVP (01:19)
[2023-03-03 02:09] VITALS: BP 196/65; PULSE 81; RESP 22; O2SAT 93
[2023-03-03 07:51] VITALS: BP 188/70; PULSE 89; RESP 16; TEMP 36.8; O2SAT 73
--- NOTE | 2023-03-03 10:39 | PC.SOCIAL ---
IMM Updated Updated IMM with pt's guardian, Luciano Batista. No questions voiced. Provided pt a copy. Initialed, dated, & timed copy in chart.
[2023-03-03] MEDS: LORazepam 2 mg/mL INJ 1 mL IVP (11:25)
--- NOTE | 2023-03-03 13:44 | PM.PN ---
Subjective Subjective: Patient was seen this morning, she is sleeping, does not arouse to her name, does not arouse to stimulation Vitals/I&O/Wt Last Vital Signs Temp 98.3 F 03/03/23 07:51 Pulse 89 03/03/23 07:51 Resp 16 03/03/23 07:51 BP 188/70 03/03/23 07:51 Pulse Ox 73 L 03/03/23 07:51 O2 Del Method Room Air 03/03/23 07:51 O2 Flow Rate 1.5 03/03/23 02:09 03/02/23 03/03/23 03/03/23 22:59 06:59 14:59 Output Total 650 / 650 Balance -650 / -650 Weight last 48 hrs Weight 57.924 kg Weight 57.153 kg Physical Exam Const: COMMON NORMALS: no acute distress Resp: COMMON NORMALS: normal respiratory effort, No retractions, No use of accessory muscles and clear to auscultation bilaterally AUSCULTATION: clear to auscultation bilaterally Cardio: COMMON NORMALS: regular rate, regular rhythm, S1 normal heart sound present and S2 normal heart sound present RATE: regular rate RHYTHM: regular rhythm HEART SOUNDS: S1 normal heart sound present and S2 normal heart sound present GI: COMMON NORMALS: Normal to inspection, nondistended, normoactive bowel sounds present Extremity: COMMON NORMALS: no pedal edema Urinary Catheter Management: Nelson: Cath Placed During This Visit: yes, but has since been removed by the nurse Reason for Continuing Indwelling Catheter: Hospice/Comfort/Palliative Care Urinary Catheter Date of Insertion: 02/21/23 Urinary Catheter Time of Insertion: 00:20 Date Urinary Catheter Removed: 02/21/23 Time Urinary Catheter Discontinued: 12:15 Data 02/15/23 04:57 02/15/23 04:57 A&P Assessment and plan (1) Goals of care, counseling/discussion: (2) Need for comfort care: (3) UGIB (upper gastrointestinal bleed): (4) Fracture of distal end of humerus: Qualifiers: Encounter type: initial encounter Fracture alignment: nondisplaced Fracture type: closed Laterality: left (5) Sepsis: (6) NSTEMI (non-ST elevated myocardial infarction): (7) MIKEY (acute kidney injury): (8) Small bowel obstruction: (9) Aspiration pneumonia: (10) Hypoxia: (11) Lactic acidosis: (12) Septic shock: (13) Altered mental status: (14) Protein calorie malnutrition: (15) Physical deconditioning: (16) Recurrent aspiration events: (17) Aspiration pneumonitis: (18) Acute respiratory distress: (19) Bronchospasm: (20) Acute basilic vein thrombosis: (21) Shingles outbreak: - On examination patient has a shingles outbreak on bilateral back -Vesicular-like lesions, in various stages, some crusting -i am going to start her on acyclovir for comfort, place on contact precautions Plan Currently on comfort care/hospice Attestations Medical Necessity Statement*: Patient requires hospitalization for comfort care Coding Level of Care Code Acute Code for Chg Fwd Diagnoses Goals of care, counseling/discussion Z71.89 Need for comfort care UGIB (upper gastrointestinal bleed) K92.2 Fracture of distal end of humerus S42.409A Encounter type: initial encounter Fracture alignment: nondisplaced Fracture type: closed Laterality: left Sepsis A41.9 NSTEMI (non-ST elevated myocardial infarction) I21.4 MIKEY (acute kidney injury) N17.9 Small bowel obstruction K56.609 Aspiration pneumonia J69.0 Hypoxia R09.02 Lactic acidosis E87.20 Septic shock A41.9; R65.21 Altered mental status R41.82 Protein calorie malnutrition E46 Physical deconditioning R53.81 Recurrent aspiration events Aspiration pneumonitis J69.0 Acute respiratory distress R06.03 Bronchospasm J98.01 Acute basilic vein thrombosis I82.619 Shingles outbreak B02.9
[2023-03-03 19:51] VITALS: BP 70/52; PULSE 118; RESP 23; TEMP 36.8; O2SAT 90
--- NOTE | 2023-03-04 00:25 | PC.NURSE ---
Per [facility] coordinator Ana Chandler Pt is full release from [facility] due to age. Ref # [id number]
--- NOTE | 2023-03-04 00:59 | PC.NURSE ---
Patient demised at 2355. Verified by this nurse and charge CAMACHO Sher. 0000 Hospitalist called and notified. 0001 Rn Transitional called and informed. 0010 Patient's DPOA called and notified and confirmed the patients preferred home to be [facility] [address], [place], [place] [phone]. Post mortem care provided and patient lay in requested presentation for home.
--- NOTE | 2023-03-18 15:32 | P.DES_ITS ---
Discharge Providers DDS Date of Admission: 02/06/23 19:54 Date Summary Completed: 03/18/23 Attending Provider at Admission: Razia Harris MD Attending Provider at Discharge: Herbert Dang MD Primary Care Provider: Tony Leonardo Jr, MD DS Diagnoses Hospital Diagnoses (1) Goals of care, counseling/discussion: (2) Need for comfort care: (3) UGIB (upper gastrointestinal bleed): (4) Fracture of distal end of humerus: Qualifiers: Encounter type: initial encounter Fracture alignment: nondisplaced Fracture type: closed Laterality: left (5) Sepsis: (6) NSTEMI (non-ST elevated myocardial infarction): (7) MIKEY (acute kidney injury): (8) Small bowel obstruction: (9) Aspiration pneumonia: (10) Hypoxia: (11) Lactic acidosis: (12) Septic shock: (13) Altered mental status: (14) Protein calorie malnutrition: (15) Physical deconditioning: (16) Recurrent aspiration events: (17) Aspiration pneumonitis: (18) Acute respiratory distress: (19) Bronchospasm: (20) Acute basilic vein thrombosis: (21) Shingles outbreak: Reason for Visit Reason for Visit Fall Summary Summary Summary: Lissa Pete is a 87 year old female who has severe dementia, not able to provide history, I called [facility], nurse stated that she has a pain of a 10-year-old, she is able to carry her daily activities on her own without any assistance, she is able to do simple questions, lately she has been falling and losing her balance, she felt face forward today on the ground and fractured her left arm, ED was about to discharge her when she went into A-fib with RVR she was put on Cardizem drip 15 mg which dropped her blood pressure, rapid response was called at that point 1 L bolus was given, she has significant leukocytosis, CT chest abdomen pelvis requested, there is high risk for aspiration, septic bolus will be administered along antibiotics, blood and sputum culture requested, CODE STATUS was confirmed with the [facility], we were told by the nursing staff that she is DNI/DNI, Cardizem drip stopped, will switch to amiodarone Patient had 1 episode of hematemesis in the CSU Patient was admitted to [facility], for altered mental status, septic shock, secondary to aspiration pneumonia, acute respiratory distress, A-fib with RVR, with high-grade bowel obstruction, monitored in the intensive care unit, general surgery was consulted, medically managed, clinically improved, sepsis improved, respiratory distress improved, she was moved out of the ICU, to the cardiac stepdown unit, but her hospitalization was then complicated by recurrent aspiration pneumonia, acute respiratory failure, recurrence of her high-grade bowel obstruction, with the development of acute basilic vein thrombosis, pulmonary emboli, NSTEMI, and GI bleed. Due to her underlying advanced dementia, high risk of surgical options, after discussing all options with patient's healthcare power of pigment mixer decision was made to proceed with [facility] comfort care, time of 03/04/2023 at 2355 Additional Data Advance directives?: Yes Discharge Plan Discharge Patient Disposition: Condition: Stable Prescriptions: No Action albuterol sulfate 0.63 mg/3 mL Solution For Nebulization 0.63 mg INHALATION Q4H PRN (Reason: Shortness Of Breath Or Wheezing) acetaminophen 325 mg Tablet 650 mg PO Q4H PRN (Reason: Pain) atorvastatin 10 mg tablet 10 mg PO QPM amlodipine 5 mg tablet 5 mg PO DAILY Aspir-81 81 mg Tablet,Delayed Release (Dr/Ec) 81 mg PO DAILY Milk of Magnesia 400 mg/5 mL Suspension 30 ml PO DAILY PRN (Reason: Constipation) losartan 25 mg tablet 25 mg PO DAILY docusate sodium 100 mg Capsule 100 mg PO BID Virtussin AC 10-100 mg/5 mL Liquid 5 ml PO Q6H PRN (Reason: Cough) furosemide 20 mg tablet 20 mg PO DAILY oxybutynin chloride 5 mg tablet 2.5 mg PO DAILY potassium chloride 10 mEq tablet,ER particles/crystals 10 meq PO DAILY lactulose 10 gram/15 mL solution 15 ml PO QPM Referrals: [facility] [Outside] Patient Instructions: Heart Failure (DC), GI Discharge Instructions, Opioid Safety Activity Restrictions/Additional Instructions: Patient was found to have a fracture of her distal humerus near her elbow joint. She needs to stay in her splint at all times until she follows up with orthopedics. Case management should be reaching out to her/prison this week to set her up with appointment date and time. Probable Cause of Probable cause of : Cardiac arrest DS Attestations Time Spent in /Discharge Care*: greater than 30 min Quality - AMI: AMI present?: No Quality - Stroke: CVA present?: No Quality - VTE: VTE present?: No Coding Level of Care Code 65868 Total time (in minutes) for Discharge: 45 Diagnoses Goals of care, counseling/discussion Z71.89 Need for comfort care UGIB (upper gastrointestinal bleed) K92.2 Fracture of distal end of humerus S42.409A Encounter type: initial encounter Fracture alignment: nondisplaced Fracture type: closed Laterality: left Sepsis A41.9 NSTEMI (non-ST elevated myocardial infarction) I21.4 MIKEY (acute kidney injury) N17.9 Small bowel obstruction K56.609 Aspiration pneumonia J69.0 Hypoxia R09.02 Lactic acidosis E87.20 Septic shock A41.9; R65.21 Altered mental status R41.82 Protein calorie malnutrition E46 Physical deconditioning R53.81 Recurrent aspiration events Aspiration pneumonitis J69.0 Acute respiratory distress R06.03 Bronchospasm J98.01 Acute basilic vein thrombosis I82.619 Shingles outbreak B02.9
== END 2023-03-04 01:35 | disposition expired | DRG 871 ==
LOC: ER 19:30 → CSU 20:18 → ICU 23:40 → CSU 02-10 21:49 → MEDSURG 02-18 15:18
PROVIDERS: Internal Medicine; Physician Assistant; Surgery; Admitting Provider Internal Medicine; Emergency Provider Emergency Medicine; PCP Family Medicine; Visit Provider Family Medicine
PROC: 0DH63UZ Insertion of Feeding Device into Stomach, Percutaneous Approach (ICD-10-PCS; CPT 43246; principal; 2023-02-13 10:00)
DX: A41.9 Sepsis, unspecified organism (principal); G93.41 Metabolic encephalopathy; J69.0 Pneumonitis due to inhalation of food and vomit; R65.21 Severe sepsis with septic shock; I21.A1 Myocardial infarction type 2; I26.99 Other pulmonary embolism without acute cor pulmonale; S42.402A Unspecified fracture of lower end of left humerus, initial encounter for closed fracture; K92.2 Gastrointestinal hemorrhage, unspecified; N17.9 Acute kidney failure, unspecified; K56.600 Partial intestinal obstruction, unspecified as to cause; E87.20 Acidosis, unspecified; E44.0 Moderate protein-calorie malnutrition; I82.621 Acute embolism and thrombosis of deep veins of right upper extremity; N39.0 Urinary tract infection, site not specified; Z51.5 Encounter for palliative care; W18.30XA Fall on same level, unspecified, initial encounter; Y92.129 Unspecified place in nursing home as the place of occurrence of the external cause; Z68.24 Body mass index [BMI] 24.0-24.9, adult; J98.01 Acute bronchospasm; B02.9 Zoster without complications; F03.C0 Unspecified dementia, severe, without behavioral disturbance, psychotic disturbance, mood disturbance, and anxiety; I48.91 Unspecified atrial fibrillation; I46.9 Cardiac arrest, cause unspecified; I27.20 Pulmonary hypertension, unspecified; I08.3 Combined rheumatic disorders of mitral, aortic and tricuspid valves; Z66 Do not resuscitate
CPT/HCPCS: 36415; 36416; 36569; 36600; 51701; 51702; 70160; 70450; 71045; 71250; 71275; 72125; 73030; 73060; 73080; 73090; 73110; 73130; 74018; 74019; 74176; 74177; 80048; 80053; 80202; 81001; 82274; 82803; 82962; 83036; 83605; 83690; 83735; 83880; 84100; 84145; 84443; 84484; 85007; 85014; 85018; 85025; 85378; 85730; 86140; 87040; 87086; 87486; 87581; 87633; 87641; 92523; 92610; 93005; 93306; 93970; 93971; 94640; 94664; 96365; 96372; 96375; 96376; 97110; 97161; 97165; 97530; 97535; 99284; 99291; A9270; C1751; C9113; J0282; J0692; J1630; J1644; J1815; J1885; J1940; J2060; J2185; J2270; J2405; J2543; J2704; J3370; J3475; J3490; J7030; J7040; J7050; J7060; J7626; J8499; Q9967